=== PATIENT | female | born 1955 | race Caucasian/White ===

== ENCOUNTER 2019-09-17 07:55 | Outpatient (CLI) | payer MEDICARE, MEDICAID, SELFPAY ==
--- NOTE | 2019-09-19 00:42 | SLEEP_ITS ---
Home Sleep Test DATE OF STUDY: 09/17/2019 REASON FOR TESTING: Excessive daytime sleepiness with snoring. HISTORY: The patient is a 63-year-old female, 5 feet 3 inches tall, weighing 140 pounds with a body mass index of 24.8. She has a history of occasionally snoring, but only rarely is at loud enough that others complain about it. She indicates that she has had a sleep test before and a CPAP machine, so this indicates a prior history of sleep apnea. She frequently awakens from sleep feeling short of breath. She does not awaken from sleep with belching or coughing. She frequently has trouble sleeping with a cold, frequently wakes up gasping for breath at night. She occasionally has breathing problems, reported to her by others, occasionally sweats excessively at night and notices her heart pounding or beating irregularly at night. She constantly falls asleep during the day. She occasionally falls asleep involuntarily. She denies falling asleep while driving. She rarely falls asleep during physical effort, rarely falls asleep with laughing or crying and rarely has loss of muscle tone with strong emotion. She does not have daytime difficulties due to excessive sleepiness. She is retired. She rarely feels paralyzed on waking or falling asleep. Rarely has vivid dreamlike scenes upon awakening or falling asleep and rarely is afraid to go to sleep. She does not have nightmares. She rarely remembers her dreams and rarely has racing thoughts. She frequently feels sad, depressed, and anxious. She rarely has muscular tension. She frequently kicks at night and frequently notices parts of her body jerking. She rarely has crawly achy feelings in her legs. She occasionally has leg pain at night. She does not have morning jaw pain and does not grind her teeth during sleep. She rarely is bothered by pain during the day. She occasionally is awakened with pain at night. Wakes up feeling stiff in the morning, wakes up with sore achy muscles and wakes up with pain in the neck and spine. She has fatigue and memory problems as well as headaches. She estimates that she has between 8 and 11 hours of sleep per night. She goes to bed between 10 p.m. and 12 midnight. It takes her 1-2 hours to fall asleep. She awakens 1 or 2 times at night to go to the bathroom. When awake, she will stay awake for about an hour. She smokes during the night. She wakes up at various times. MEDICAL COMORBIDITIES: Depression, COPD, history of throat cancer, diabetes mellitus type 2, acid reflux, hyperlipidemia. MEDICATIONS: 1. Atorvastatin 80 mg a day. 2. Breo Ellipta 200/25 one puff daily. 3. Bupropion 150 mg extended release. 4. Hydrochlorothiazide 12.5 mg daily. 5. Meloxicam 7.5 mg daily. 6. Metformin 1000 mg twice a day with meals. 7. Metoprolol succinate ER 50 mg a day. 8. Ventolin HFA 90 mcg p.r.n. HABITS: Tobacco, half pack per day. Coffee 2 cups a day. No alcohol. DESCRIPTION OF THE STUDY: On the [place] Sleepiness Scale, the score is 7. This was conducted as an unattended home sleep test with 4 channel monitoring including respiratory effort channel, snoring channel, oxygen saturation channel, and heart rate channel. This study was scored using CMS guidelines. The apnea-hypopnea index is 8. Oxygen desaturation index is 9. Average saturation is 91%, which is low. Minimum saturation was 68%. She had one apnea, which was a central apnea, 43 hypopneas, 1135 snoring events and 43 desaturations with 66 minutes or 23% of the study spent below 88% saturation. Heart rate ranged from 64 to 159. IMPRESSION: This home sleep test shows at least mild obstructive sleep apnea syndrome, G47.33 with an AHI of 8, oxygen desaturation index of 9, lowest desaturation of 68% and over 1 ewa
== END 2019-09-17 07:56 | disposition home or self-care (01) ==
LOC: ANHCSM 07:56
PROVIDERS: PCP Family Medicine; Visit Provider Family Medicine
DX: G47.33 Obstructive sleep apnea (adult) (pediatric) (principal)
CPT/HCPCS: 95806

== ENCOUNTER 2020-09-08 12:45 | Emergency (ER) | payer MEDICARE, MEDICAID, SELFPAY ==
--- NOTE | ~2020-09-08 | XR_ITS ---
EXAMINATION: XR shoulder RT min 2V DATE: 09/08/2020 13:54 INDICATION: Right shoulder pain. TECHNIQUE: 5 views of right shoulder were obtained. COMPARISON: Right humerus radiographs 02/28/2019 FINDINGS: Bone alignment is normal. No fracture. There is mild osteoarthritis of glenohumeral joint a nd acromioclavicular joint characterized by tiny marginal osteophytes. IMPRESSION: 1. Mild polyarticular osteoarthritis. Reviewed, dictated and finalized at location A. LA REPAIRER
[2020-09-08 13:01] VITALS: BP 121/79; PULSE 72; RESP 16; TEMP 36.7; O2SAT 96
--- NOTE | 2020-09-08 14:40 | ED.GENADULT ---
HPI - General Adult General Chief complaint: Extremity Injury, Upper <Brian Lee PA-C - Last Filed: 09/08/20 14:44> Stated complaint: right shoulder pain <CELIA Dickerson Last Filed: 09/08/20 14:44> Time Seen by Provider: 09/08/20 12:59 <Brian Lee PA-C - Last Filed: 09/08/20 14:44> Source: patient <CELIA Dickerson Last Filed: 09/08/20 14:44> Mode of arrival: ambulatory <CELIA Dickerson Last Filed: 09/08/20 14:44> Limitations: no limitations <CELIA Dickerson Last Filed: 09/08/20 14:44> History of Present Illness HPI narrative: Patient presents with chief complaint of right shoulder pain that presented when she woke up this morning. Patient states that she has had issues with the shoulder in the past and has also had rotator cuff surgery many many years ago. Patient states typically when she has shoulder pain she takes her Tylenol with codeine but she did not do that today she presented herself to the emergency department. Patient denies any falls or traumas to the shoulder recently. Patient denies any chest pain, shortness of breath, fever, chills, nausea, vomiting, diarrhea or any other associated symptoms. <Brian Lee PA-C - Last Filed: 09/08/20 14:44> Related Data Allergies/adverse reactions: Allergies Allergy/AdvReac Type Severity Reaction Status Date / Time Penicillins Allergy Mild Unknown Verified 11/06/18 13:09 <Brian Lee PA-C - Last Filed: 09/08/20 14:44> Review of Systems Review of Systems: Narrative: CONSTITUTIONAL: Denies fever, chills, or sweats. EYES: Denies visual changes, redness, or discharge. ENT: Denies rhinorrhea, congestion, sore throat, or otalgia. CARDIOVASCULAR: Denies chest pain, palpitations, or edema. RESPIRATORY: Denies cough or dyspnea. GASTROINTESTINAL: Denies abdominal pain, nausea, vomiting, or diarrhea. GENITOURINARY: Denies dysuria or hematuria. SKIN: Denies rash or itching. MUSCULOSKELETAL: Reports right shoulder pain denies back pain, joint pain, or myalgia. NEUROLOGIC: Denies headache, numbness, dizziness, or weakness. PSYCHIATRIC: Denies anxiety or depression. <Brian Lee PA-C - Last Filed: 09/08/20 14:44> PMFSH Past Medical History Medical History: Medical History (Updated 09/08/20 @ 14:44 by Brian Lee PA-C) COPD exacerbation Diabetes High cholesterol History of arthritis History of cataract History of stroke HTN (hypertension) Hyperlipidemia <Brian Lee PA-C - Last Filed: 09/08/20 14:44> Family History Family History: Family History (Updated 06/25/19 @ 12:30 by Laure Banks [facility]) Father Cancer <Biran Lee PA-C - Last Filed: 09/08/20 14:44> Social History Social History: Social History (Updated 06/07/19 @ 13:05 by Alley Yañez) Smoking status: Current every day smoker Tobacco type: cigarettes Alcohol intake: never Substance use: never Gender identity (if verbalized by the patient): Female <Brian Lee PA-C - Last Filed: 09/08/20 14:44> Exam Narrative: Exam Narrative: GENERAL: Well-appearing, well-nourished, and in no acute distress. HEAD: Normocephalic, atraumatic. EYES: PERRLA and EOMI. NECK: Supple. No adenopathy or masses. CHEST: Clear to auscultation. No respiratory distress. No wheezes rales or rhonchi HEART: Regular rate and rhythm. No murmur heard. Normal peripheral pulses. EXTREMITIES: Patient reports pain with palpation of shoulder diffusely. No acute range of motion deficits. No edema. No erythema ecchymosis or signs of trauma. SKIN: Warm, dry, no rash. NEURO: No focal deficits. Alert and oriented x3. PSYCH: Normal mood and affect. <Brian Lee PA-C - Last Filed: 09/08/20 14:44> Course Vital Signs Vital signs: Vital Signs Temperature 98.1 F 09/08/20 13:01 Pulse Rate 72 09/08/20 13:01 Respiratory Rate 16 09/08/20 13:01 Blood Pressure 121/79 09/08/20 13:01 Pul
== END 2020-09-08 14:57 | disposition home or self-care (01) ==
PROVIDERS: Emergency Provider General Practice; PCP Nurse Practitioner Family
DX: M25.511 Pain in right shoulder (principal); J44.9 Chronic obstructive pulmonary disease, unspecified; E11.9 Type 2 diabetes mellitus without complications; Z86.73 Personal history of transient ischemic attack (TIA), and cerebral infarction without residual deficits; E78.5 Hyperlipidemia, unspecified; I10 Essential (primary) hypertension; F17.210 Nicotine dependence, cigarettes, uncomplicated; M19.011 Primary osteoarthritis, right shoulder
CPT/HCPCS: 73030; 99283

== ENCOUNTER 2020-09-18 13:47 | Emergency (ER) | payer MEDICARE, MEDICAID, SELFPAY ==
--- NOTE | ~2020-09-18 | XR_ITS ---
EXAMINATION: XR shoulder RT min 2V DATE: 09/18/2020 15:25 INDICATION: Right shoulder pain radiating down the right arm TECHNIQUE: AP internally and externally rotated, AP oblique externally rotated and transscapular Y vi ews of the right shoulder were obtained. COMPARISON: None FINDINGS: Normal alignment. No fracture. Mild glenohumeral and mild acromioclavicular osteoarthritis. There ap pears to be fusion anteriorly between the right C7 cervical rib and the right first rib. There is add itional anterior fusion between the anterior right fourth and fifth ribs. 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 IMPRESSION: Mild right glenohumeral and acromial clavicular osteoarthritis. No acute osseous abnormality. 2. There appear to be bilateral cervical ribs. Consider cervical spine radiographs for confirmation. 3. 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 Reviewed, dictated and finalized at location A. HOLOGIST RESEARCH ASSISTANT IMPRESSION: Mild right glenohumeral and acromial clavicular osteoarthritis. No acute osseou s abnormality. 2. There appear to be bilateral cervical ribs. Consider cervical spine radiogra phs for confirmation. 3. 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
[2020-09-18 14:05] VITALS: BP 132/81; PULSE 91; RESP 18; TEMP 35.8; O2SAT 95
--- NOTE | 2020-09-18 14:42 | PC.NURSE ---
Pt states her pmd prescribes her Tramadol and Tylenol #3 but they don't help. Has not contacted pmd to inform them of this. States she could not raise her right arm this morning after getting up due to pain.
--- NOTE | 2020-09-18 15:18 | ED.UPPEXIN ---
HPI - Extremity Injury (Upper) General Chief Complaint: Extremity Injury, Upper Stated Complaint: sharp pain in arm, completely resolved Time Seen by Provider: 09/18/20 14:40 Source: patient Mode of arrival: ambulatory Limitations: no limitations History of Present Illness HPI narrative: This is a 64 year old female that presents to the ER for right shoulder pain x 2 weeks. Reports she was evaluated here for this about 10 days ago. She was told she has arthritis. Reports pain is worse with ROM and relieved with rest. Denies fever, erythema, edema, or numbness. Related Data Allergies Allergy/AdvReac Type Severity Reaction Status Date / Time Penicillins Allergy Mild Unknown Verified 09/18/20 14:12 Review of Systems Review of Systems: Narrative: CONSTITUTIONAL: Denies fever CARDIOVASCULAR: Denies chest pain SKIN: Denies rash MUSCULOSKELETAL: Reports joint pain, and myalgia. NEUROLOGIC: Denies numbness All systems reviewed & are unremarkable except as noted in HPI and below PMFSH Past Medical History Medical History (Updated 09/18/20 @ 16:07 by Magda Cortez PA-C) COPD exacerbation Diabetes High cholesterol History of arthritis History of cataract History of stroke HTN (hypertension) Hyperlipidemia Family History Family History (Updated 06/25/19 @ 12:30 by Laure Banks [facility]) Father Cancer Social History Social History (Updated 06/07/19 @ 13:05 by Alley Yañez) Smoking status: Current every day smoker Tobacco type: cigarettes Alcohol intake: never Substance use: never Gender identity (if verbalized by the patient): Female Exam Narrative: Exam Narrative: GENERAL: Well-appearing, well-nourished, and in no acute distress. HEAD: Normocephalic, atraumatic. EYES: EOMI. CHEST: Clear to auscultation. No respiratory distress. No wheezes rales or rhonchi HEART: Regular rate and rhythm. No murmur heard. Normal peripheral pulses. EXTREMITIES: Normal range of motion, except decreased active ROM in the right shoulder above 90 degrees due to pain. No edema, erythema or obvious deformity. Normal radial pulses. Normal sensation SKIN: Warm, dry, no rash. NEURO: No focal deficits. Alert and oriented x3. PSYCH: Normal mood and affect Course Vital Signs Vital signs: Vital Signs Temperature 96.5 F L 09/18/20 14:05 Pulse Rate 91 09/18/20 14:05 Respiratory Rate 18 09/18/20 14:05 Blood Pressure 132/81 09/18/20 14:05 Pulse Oximetry 95 09/18/20 14:05 Temperature 96.5 F L 09/18/20 14:05 Pulse Rate 91 09/18/20 14:05 Respiratory Rate 18 09/18/20 14:05 Blood Pressure 132/81 09/18/20 14:05 Pulse Oximetry 95 09/18/20 14:05 MDM - Extremity Injury (Upper) MDM Narrative Medical decision making narrative: Patient presents the emergency department for right shoulder pain x2 weeks. No no recent injury or trauma. Patient is neurovascularly intact. Right shoulder x-ray shows mild osteoarthritis. No acute osseous abnormalities. Patient was updated on case findings. She was instructed to follow-up with an orthopedic doctor. She was given warnings to return to the ER Imaging Data Radiologist's impression: ITS Impressions Shoulder X-Ray 09/18/20 15:31 IMPRESSION: Mild right glenohumeral and acromial clavicular osteoarthritis. No acute osseous abnormality. 2. There appear to be bilateral cervical ribs. Consider cervical spine radiographs for confirmation. 3. 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 Critical Care Time Critical Care Time Critical Care Time: No Discharge Plan Discharge Clinical Impression: Acute pain of right shoulder Patient Disposition: Home, Self-Care Condition: Stable Instructions: Shoulder Pain (ED) Additional Instructions: Return to the emergency department if you experience fever, redness and swelling of your arm, numbness, or any other symptoms that are concerning to you Rest. Ice to th
[2020-09-18] MEDS: ACETAMINOPHEN 500 MG TABLET 1000 MG PO (15:26)
[2020-09-18] MEDS: diazePAM INJ (*CRX) 10 MG/2 ML SYRINGE 5 MG IM (15:26)
== END 2020-09-18 16:17 | disposition home or self-care (01) ==
PROVIDERS: Emergency Provider Emergency Medicine; PCP Nurse Practitioner Family
DX: M25.511 Pain in right shoulder (principal); J44.9 Chronic obstructive pulmonary disease, unspecified; M19.90 Unspecified osteoarthritis, unspecified site; I10 Essential (primary) hypertension; E78.5 Hyperlipidemia, unspecified; Z86.73 Personal history of transient ischemic attack (TIA), and cerebral infarction without residual deficits; F17.210 Nicotine dependence, cigarettes, uncomplicated; M19.011 Primary osteoarthritis, right shoulder
CPT/HCPCS: 73030; 96372; 99283; A9270; J3360

== ENCOUNTER 2020-11-03 11:53 | Emergency (ER) | payer MEDICARE, MEDICAID, SELFPAY ==
--- NOTE | ~2020-11-03 | XR_ITS ---
EXAMINATION: XR chest 2V DATE: 11/03/2020 13:11 INDICATION: Hemoptysis. Right chest pain. Shortness of breath. TECHNIQUE: Frontal and lateral views of the chest were obtained. COMPARISON: CT abdomen and pelvis 06/07/2019 FINDINGS: The chest demonstrates clear lungs without pneumonia, pleural effusion, or pneumothorax. Th e heart size is normal. There are surgical clips in right breast. IMPRESSION: 1. No acute cardiopulmonary disease. Reviewed, dictated and finalized at location A.
[2020-11-03 11:58] VITALS: BP 122/90; PULSE 105; RESP 16; TEMP 36.1; O2SAT 98
--- NOTE | 2020-11-03 12:30 | ED.GENADULT ---
HPI - General Adult General Chief complaint: Unspecified Stated complaint: coughing up blood, blood in nasal drainage Time Seen by Provider: 11/03/20 12:17 History of Present Illness HPI narrative: Bloody nasal drainage since yesterday. More from left than right, but coming from both sides. Small amount of hemoptysis. Baseline SOB, unchanged. No fever, chills, weakness, pain. Related Data Home Medications Medication Instructions Recorded Confirmed No Home Medications 10/06/20 10/06/20 Allergies Allergy/AdvReac Type Severity Reaction Status Date / Time Penicillins Allergy Mild Unknown Verified 11/03/20 12:42 Review of Systems Review of Systems: All systems reviewed & are unremarkable except as noted in HPI and below Constitutional: Constitutional: Reports no additional constitutional complaints Eyes: Eyes: Reports no additional eye complaints ENT: Reports as per HPI and Denies nasal trauma Cardiovascular: Cardiovascular: Reports as per HPI Respiratory: Respiratory: Reports as per HPI Hematologic/Lymphatic: Hematologic/Lymphatic: Denies easy bleeding and Denies easy bruising PMFSH Past Medical History Medical History COPD exacerbation Diabetes High cholesterol History of arthritis History of cataract History of stroke HTN (hypertension) Hyperlipidemia Right shoulder pain Rotator cuff tendinitis Family History Family History Father Cancer Social History Social History Smoking status: Current every day smoker Tobacco type: cigarettes Alcohol intake: never Substance use: never Gender identity (if verbalized by the patient): Female Exam Const: General: cooperative, comfortable and no acute distress Orientation/consciousness: patient oriented x3 HENMT: Head: normal to inspection General nose exam: Other nasal findings present (likely source of bleeding identified over the septum on the right) Face and sinus: normal facial exam Mouth: Yes Normal oral and palatal mucosa present Resp: Effort & Inspection: normal respiratory effort Auscultation: clear to auscultation bilaterally Cardio: Rate: regular rate Rhythm: regular rhythm Skin: General skin exam: normal color Neuro: General: patient oriented x3 and CN's II-XI intact bilaterally Cognition (Neuro): normal cognition Speech: normal speech Extrem: General: normal to inspection Course Vital Signs Vital signs: Vital Signs Temperature 36.1 C L 11/03/20 11:58 Pulse Rate 105 H 11/03/20 11:58 Respiratory Rate 16 11/03/20 11:58 Blood Pressure 122/90 11/03/20 11:58 Pulse Oximetry 98 11/03/20 11:58 Temperature 36.1 C L 11/03/20 11:58 Pulse Rate 86 11/03/20 14:35 Respiratory Rate 18 11/03/20 14:35 Blood Pressure 112/84 11/03/20 14:35 Pulse Oximetry 98 11/03/20 14:35 Medical Decision Making MDM Narrative Medical decision making narrative: Labs and imaging reassuring. Bleeding is most likely just from visualized lesion in the nose. Medical Records Medical records reviewed: Yes I reviewed the external patient's medical records. Vital Signs Vital Signs: Vital Signs Temperature 36.1 C L 11/03/20 11:58 Pulse Rate 105 H 11/03/20 11:58 Respiratory Rate 16 11/03/20 11:58 Blood Pressure 122/90 11/03/20 11:58 Pulse Oximetry 98 11/03/20 11:58 Temperature 36.1 C L 11/03/20 11:58 Pulse Rate 86 11/03/20 14:35 Respiratory Rate 18 11/03/20 14:35 Blood Pressure 112/84 11/03/20 14:35 Pulse Oximetry 98 11/03/20 14:35 Lab Data Lab results reviewed: Yes I reviewed the patient's lab results. Result diagrams: 11/03/20 13:42 11/03/20 13:42 Labs: Lab Results 11/03/20 11/03/20 11/03/20 Range/Units 13:42 13:42 13:42 WBC 8.1 (4.5-10.0) K/mm3 RBC 4.72 (4.2-5.4) M/
[2020-11-03 13:10] VITALS: BP 112/81; PULSE 83; RESP 20; O2SAT 100
[2020-11-03] MEDS: OXYMETAZOLINE HCL 0.05% NAS 15 ML BTL (*BKC) 2 SPRAY NASAL (13:32)
[2020-11-03 13:56] LABS: Basophils Absolute Auto 0.1 K/mm3 (0.0-0.1); Eosinophils Absolute Auto 0.1 K/mm3 (0-0.3); Eosinophils Percent Auto 1.5 % (0-4.4); Hematocrit 46.3 % (37.0-47.0); Hemoglobin 15.2 g/dL (12.0-15.0); Immature Granulocyte Absolute 0.06 K/mm3 (0.00-0.031); Immature Granulocyte Percent A 0.7 % (0-0.5); Lymphocytes Absolute Auto 1.08 K/mm3 (0.9-3.2); Lymphocytes Percent Auto 13.3 % (18.3-44.2); Mean Corpuscular HGB Conc 32.8 g/dl (32-36); Mean Corpuscular Hemoglobin 32.2 pg (26-34); Mean Corpuscular Volume 98.1 fl (80-100); Mean Platelet Volume 9.8 fl (7.4-10.4); Monocytes Absolute Auto 0.5 K/mm3 (0.1-0.6); Monocytes Percent Auto 6.3 % (2.6-8.5); Neutrophils Absolute Auto 6.3 K/mm3 (1.3-6.7); Neutrophils Percent Auto 77.2 % (45.5-73.1); Platelet Count Result 177 k/mm3 (150-375); Red Blood Count 4.72 M/mm3 (4.2-5.4); Red Cell Distribution Width 14.1 % (11.5-14.5); White Blood Count 8.1 K/mm3 (4.5-10.0)
[2020-11-03 14:12] VITALS: BP 113/82; PULSE 86; RESP 18; O2SAT 99
[2020-11-03 14:12] LABS: Alanine Aminotransferase 13 U/L (4-35); Albumin Level 4.2 g/dL (3.5-5.1); Alkaline Phosphatase 86 U/L (38-126); Anion Gap 4 mmol/L (8-16); Aspartate Amino Transferase 18 U/L (14-36); Bilirubin,Total 0.4 mg/dL (0.2-1.3); Blood Urea Nitrogen 16 mg/dL (7-17); Carbon Dioxide 33 mmol/L (22-30); Chloride 106 mmol/L (98-107); Estimated CRCL calculation 40 ml/min; Estimated Glomerular Filt Rate 55; Glucose 86 mg/dL (65-105); Potassium 4.4 mmol/L (3.4-5.0); Sodium 143 mmol/L (137-145)
[2020-11-03] MEDS: SALINE 0.65% NAS SOLN 44 ML BTL 2 SPRAY NASAL (14:12)
[2020-11-03 14:13] LABS: INR 0.8; Prothrombin Time 12.1 Seconds (11.1-14.7)
[2020-11-03 14:35] VITALS: BP 112/84; PULSE 86; RESP 18; O2SAT 98
== END 2020-11-03 14:40 | disposition home or self-care (01) ==
PROVIDERS: Emergency Provider Emergency Medicine; PCP Family Medicine Adolescent Medicine
DX: R04.0 Epistaxis (principal); J44.1 Chronic obstructive pulmonary disease with (acute) exacerbation; E11.9 Type 2 diabetes mellitus without complications; E78.5 Hyperlipidemia, unspecified; M19.90 Unspecified osteoarthritis, unspecified site; I10 Essential (primary) hypertension; F17.210 Nicotine dependence, cigarettes, uncomplicated
CPT/HCPCS: 36415; 71046; 80053; 85025; 85610; 85730; 99283; A9270

== ENCOUNTER 2021-01-16 07:47 | Emergency (ER) | payer MEDICARE, MEDICAID, SELFPAY ==
[2021-01-16 08:08] VITALS: BP 113/76; PULSE 103; RESP 18; TEMP 37; O2SAT 96
[2021-01-16 08:41] LABS: Basophils Absolute Auto 0.1 K/mm3 (0.0-0.1); Basophils Percent Auto 0.8 % (0.2-1.2); Eosinophils Absolute Auto 0.5 K/mm3 (0-0.3); Eosinophils Percent Auto 6.9 % (0-4.4); Hematocrit 41.7 % (37.0-47.0); Hemoglobin 13.5 g/dL (12.0-15.0); Immature Granulocyte Absolute 0.03 K/mm3 (0.00-0.031); Immature Granulocyte Percent A 0.4 % (0-0.5); Mean Corpuscular HGB Conc 32.4 g/dl (32-36); Mean Corpuscular Hemoglobin 31.5 pg (26-34); Mean Corpuscular Volume 97.4 fl (80-100); Mean Platelet Volume 9.7 fl (7.4-10.4); Monocytes Absolute Auto 0.6 K/mm3 (0.1-0.6); Monocytes Percent Auto 7.8 % (2.6-8.5); Neutrophils Absolute Auto 5.9 K/mm3 (1.3-6.7); Neutrophils Percent Auto 75.1 % (45.5-73.1); Platelet Count Result 208 k/mm3 (150-375); Red Blood Count 4.28 M/mm3 (4.2-5.4); White Blood Count 7.8 K/mm3 (4.5-10.0)
[2021-01-16 08:55] LABS: Anion Gap 8 mmol/L (8-16); Blood Urea Nitrogen 16 mg/dL (7-17); Calcium 9.4 mg/dL (8.4-10.2); Carbon Dioxide 31 mmol/L (22-30); Chloride 103 mmol/L (98-107); Estimated CRCL calculation 40 ml/min; Estimated Glomerular Filt Rate 55; Glucose 209 mg/dL (65-105); Potassium 3.7 mmol/L (3.4-5.0); Sodium 142 mmol/L (137-145)
--- NOTE | 2021-01-16 09:20 | ED.GENADULT ---
HPI - General Adult General Chief complaint: Skin/Abscess/Foreign Body Stated complaint: rash-possible bed bugs Time Seen by Provider: 01/16/21 08:13 Source: patient Mode of arrival: ambulatory Limitations: no limitations History of Present Illness HPI narrative: 65-year-old with a history of diabetes on Glucophage, hypertension, hypothyroidism, hyperlipidemia here with complaints of bug bite to her lower extremities and upper extremities for past few days. She states that she saw several bugs crawling on her lower extremity this morning. She denies any fever or chills. Onset (ago): day(s) (2) Location: upper extremity and lower extremity Radiation: non-radiation Severity: mild Relieving factors: none Exacerbating factors: none Associated symptoms: denies other symptoms Related Data Home Medications Medication Instructions Recorded Confirmed atorvastatin 01/16/21 ergocalciferol (vitamin D2) 01/16/21 hydrochlorothiazide 01/16/21 levothyroxine 01/16/21 metformin mg 01/16/21 oxybutynin chloride mg PO 01/16/21 tiotropium-olodaterol [Stiolto INHALATION 01/16/21 Respimat] Allergies Allergy/AdvReac Type Severity Reaction Status Date / Time Penicillins Allergy Mild Unknown Verified 01/16/21 08:10 Review of Systems Review of Systems: All systems reviewed & are unremarkable except as noted in HPI and below Constitutional: Constitutional: Reports no additional constitutional complaints Eyes: Eyes: Reports no additional eye complaints ENT: Reports system reviewed and no additional complaints, except as documented Cardiovascular: Cardiovascular: Reports no additional cardiovascular complaints Respiratory: Respiratory: Reports no additional respiratory complaints Gastrointestinal: Gastrointestinal: Reports no additional gastrointestinal complaints Musculoskeletal: Musculoskeletal: Reports no additional musculoskeletal complaints [facility] Past Medical History Medical History Arthritis COPD (chronic obstructive pulmonary disease) COPD exacerbation Depression Diabetes Excessive hunger Excessive thirst Hair loss High cholesterol History of arthritis History of cataract History of stroke HTN (hypertension) Hyperlipidemia Memory loss Right shoulder pain Rotator cuff tendinitis Sleep apnea SOB (shortness of breath) Stomach ulcer Urinary frequency Wears glasses Weight gain Family History Family History Father Cancer Social History Social History Smoking packs per day: 1 Smoking cigarettes per day: 20.0 Years smoked: 5 Smoking pack-years: 5.00 Smoking status: Current every day smoker Tobacco type: cigarettes Alcohol intake: never Substance use: never Gender identity (if verbalized by the patient): Female Exam Narrative: Exam Narrative: GENERAL: Well-appearing, well-nourished, and in no acute distress. HEAD: Normocephalic, atraumatic. EYES: PERRLA and EOMI.. NECK: Supple. CHEST: Clear to auscultation. No respiratory distress. HEART: Regular rate and rhythm. No murmur heard. Normal peripheral pulses. ABDOMEN: Soft, nontender, nondistended, normal active bowel sounds. EXTREMITIES: Normal range of motion. No edema. SKIN: Warm, dry, multiple bite castellano, eczema to skin NEURO: No focal deficits. Alert and oriented x3. PSYCH: Normal mood and affect. Course Course Emergency Course: Patient has 4 bugs in her hand, I discussed lab work with the patient advised her to take the learning and bed learning and spray with the insecticide. Take prednisone as prescribed. Also recommended her to follow-up with her primary doctor for reevaluation of her blood pressure and diabetes. Told her prednisone can increase her blood sugar so watch diet and check her sugars frequently. Vital Signs Vital signs: Vital Signs Temperature 37
== END 2021-01-16 09:37 | disposition home or self-care (01) ==
PROVIDERS: Emergency Provider Family Medicine; PCP Family Medicine Adolescent Medicine
DX: S80.862A Insect bite (nonvenomous), left lower leg, initial encounter (principal); S80.861A Insect bite (nonvenomous), right lower leg, initial encounter; S40.862A Insect bite (nonvenomous) of left upper arm, initial encounter; S40.861A Insect bite (nonvenomous) of right upper arm, initial encounter; L20.82 Flexural eczema; E11.9 Type 2 diabetes mellitus without complications; I10 Essential (primary) hypertension; E03.9 Hypothyroidism, unspecified; Z79.84 Long term (current) use of oral hypoglycemic drugs; J44.9 Chronic obstructive pulmonary disease, unspecified; M19.90 Unspecified osteoarthritis, unspecified site; E78.5 Hyperlipidemia, unspecified; G47.30 Sleep apnea, unspecified; Z86.73 Personal history of transient ischemic attack (TIA), and cerebral infarction without residual deficits; F17.210 Nicotine dependence, cigarettes, uncomplicated; H26.9 Unspecified cataract; W57.XXXA Bitten or stung by nonvenomous insect and other nonvenomous arthropods, initial encounter
CPT/HCPCS: 36415; 80048; 85025; 99283

== ENCOUNTER 2021-02-12 13:50 | Emergency (ER) | payer MEDICARE, MEDICAID, SELFPAY ==
--- NOTE | ~2021-02-12 | XR_ITS ---
EXAMINATION: XR chest 2V EXAM DATE: 02/12/2021 14:54 INDICATION: Shortness of breath. TECHNIQUE: Frontal and lateral projections of the chest obtained and reviewed. Comparison is made to prior examination from 11/03/2020. Correlation was made with abdomen pelvis CT 06/07/2019. FINDINGS: The lungs are clear. There are no pleural effusions. The cardiomediastinal silhouette is within normal limits. There is no pneumothorax suspected. The bones and soft tissues are unremarkab le. IMPRESSION: No acute cardiopulmonary findings. Reviewed, dictated and finalized at location G.
[2021-02-12 14:07] VITALS: BP 117/73; PULSE 89; RESP 16; TEMP 36.3; O2SAT 100
--- NOTE | 2021-02-12 14:07 | ECG_ITS ---
Measurements Intervals [place] Rate: 83 P: 30 NE: 176 QRS: 7 QRSD: 74 T: 74 QT: 365 QTc: 430 Interpretive Statements SINUS RHYTHM LEFT VENTRICULAR HYPERTROPHY AND ST-T CHANGE BORDERLINE ECG Electronically Signed On 02-12-2021 14:17:53 CDT by Ehsan Sierra D.O.
[2021-02-12 14:45] LABS: Basophils Absolute Auto 0.1 K/mm3 (0.0-0.1); Basophils Percent Auto 0.7 % (0.2-1.2); Eosinophils Absolute Auto 0.3 K/mm3 (0-0.3); Hematocrit 25.9 % (37.0-47.0); Hemoglobin 8.2 g/dL (12.0-15.0); Immature Granulocyte Absolute 0.19 K/mm3 (0.00-0.031); Lymphocytes Absolute Auto 0.58 K/mm3 (0.9-3.2); Lymphocytes Percent Auto 6.1 % (18.3-44.2); Mean Corpuscular HGB Conc 31.7 g/dl (32-36); Mean Corpuscular Hemoglobin 31.5 pg (26-34); Mean Corpuscular Volume 99.6 fl (80-100); Mean Platelet Volume 9.4 fl (7.4-10.4); Monocytes Absolute Auto 0.7 K/mm3 (0.1-0.6); Monocytes Percent Auto 6.9 % (2.6-8.5); Neutrophils Absolute Auto 7.7 K/mm3 (1.3-6.7); Neutrophils Percent Auto 81.3 % (45.5-73.1); Nucleated Red Blood Cells Absolute Auto 0.1 K/mm3 (0.0-0.012); Nucleated Red Blood Cells Perc 0.8 % (0.0-0.2); Platelet Count Result 234 k/mm3 (150-375); Red Cell Distribution Width 14.8 % (11.5-14.5); White Blood Count 9.5 K/mm3 (4.5-10.0)
[2021-02-12 14:56] LABS: Anion Gap 10 mmol/L (8-16); Blood Urea Nitrogen 32 mg/dL (7-17); Calcium 9.4 mg/dL (8.4-10.2); Carbon Dioxide 23 mmol/L (22-30); Chloride 108 mmol/L (98-107); Estimated CRCL calculation 45 ml/min; Estimated Glomerular Filt Rate 55; Glucose 128 mg/dL (65-110); Potassium 4.3 mmol/L (3.4-5.0); Sodium 141 mmol/L (137-145)
--- NOTE | 2021-02-12 15:57 | PC.NURSE ---
lab to add on labs.
[2021-02-12 16:00] VITALS: BP 100/78; PULSE 77; RESP 16; O2SAT 100
[2021-02-12 16:04] LABS: Immature Reticulocyte Fraction 40.5 % (3.0-15.9); Reticulocyte Hemoglobin Conten 35.8 pg (28.2-35.7); Reticulocyte Percent 4.14 % (0.7-4.3); Reticulocytes Absolute 0.11 B/L (32.2-175.7)
[2021-02-12 16:27] LABS: Iron 83 ug/dL (37-170)
[2021-02-12] MEDS: PERMETHRIN 5% CREAM 60 GM TUBE 1 APPLIC TOPICAL (16:49)
[2021-02-12] MEDS: PANTOPRAZOLE SODIUM IV 40 MG VIAL 80 MG IV PUSH (16:50)
[2021-02-12] MEDS: LACTATED RINGERS 1,000 ML 999 ML IV CONT (16:50)
[2021-02-12] MEDS: ONDANSETRON INJ 4 MG/2 ML VIAL IV PUSH (16:50)
--- NOTE | 2021-02-12 16:51 | PC.NURSE ---
pt being transferred to [facility] for GI Bleed. [facility] requesting a rapid COVID prior to transfer.
--- NOTE | 2021-02-12 16:52 | ED.GENADULT ---
HPI - General Adult General Chief complaint: Shortness of Breath/Dyspnea Stated complaint: SOB Time Seen by Provider: 02/12/21 15:24 Source: patient Mode of arrival: ambulatory Limitations: no limitations History of Present Illness HPI narrative: 65-year-old female Comes to the ER today complaining of being itchy and dizzy She has been seen here previously for the itchiness which she thought was from bedbug bites but the rash that she has is pretty diffuse small lesions and does not really resemble bedbug bites, looks more like flea bites or possibly scabies She does have a Chihuahua that she lives with Additionally she notes that today when she has gotten up out of bed or out of a chair she has felt dizzy No symptoms when at rest Not vertiginous, more of a very lightheaded feeling She has been eating okay, she has not had a fever or a cough, she has not had nausea or vomiting On questioning she does report that she had 1 large loose black stool in the last 24 hours No abdominal pain, no history of ulcers, does not drink alcohol, not using NSAIDs excessively, and she does smoke although she claims to have stopped 1 day ago, has taken prednisone Beyond the dizziness she also has fatigue quickly with exertion today History of high cholesterol, type 2 diabetes, hypertension; she had a history of throat cancer years ago that was treated at a hospital in [facility] Related Data Home Medications Medication Instructions Recorded Confirmed atorvastatin 01/16/21 ergocalciferol (vitamin D2) 01/16/21 hydrochlorothiazide 01/16/21 levothyroxine 01/16/21 metformin mg 01/16/21 oxybutynin chloride mg PO 01/16/21 tiotropium-olodaterol [Stiolto INHALATION 01/16/21 Respimat] Allergies Allergy/AdvReac Type Severity Reaction Status Date / Time Penicillins Allergy Mild Unknown Verified 01/16/21 08:10 Review of Systems Review of Systems: All systems reviewed & are unremarkable except as noted in HPI and below Constitutional: Constitutional: Reports no additional constitutional complaints, Denies chills, Reports fatigue, Denies fever(s), Denies headache(s) and Reports weakness Eyes: Eyes: Reports no additional eye complaints and Denies change in vision ENT: Denies headache(s) and Denies sore throat Cardiovascular: Cardiovascular: Denies chest pain and Denies dyspnea Respiratory: Respiratory: Denies cough and Reports dyspnea Gastrointestinal: Gastrointestinal: Denies abdominal pain, Denies diarrhea and Denies vomiting Genitourinary: Genitourinary: Denies urinary frequency and Denies dysuria Musculoskeletal: Musculoskeletal: Denies deformity, Denies arthralgias, Denies joint swelling and Denies numbness Integumentary/Breasts: Skin/Breast: Denies rash and Denies wounds Neurologic: Reports dizziness, Denies headache(s), Denies focal weakness and Denies numbness Psychiatric: Psychiatric: Reports no additional psychiatric complaints Endocrine: Endocrine: Reports no additional endocrine complaints Hematologic/Lymphatic: Hematologic/Lymphatic: Reports no additional hematologic/lymphatic complaints Allergic/Immunologic: Allergic/Immunologic: Reports no additional allergic/immunologic complaints PMFSH Past Medical History Medical History Arthritis COPD (chronic obstructive pulmonary disease) COPD exacerbation Depression Diabetes Excessive hunger Excessive thirst Hair loss High cholesterol History of arthritis History of cataract History of stroke HTN (hypertension) Hyperlipidemia Memory loss Right shoulder pain Rotator cuff tendinitis Sleep apnea SOB (shortness of breath) Stomach ulcer Urinary frequency Wears glasses Weight gain Family History Family History Father Cancer Social History Social History Smoking packs per day: 1 Sm
--- NOTE | 2021-02-12 16:58 | PC.NURSE ---
pt to be transferred to [facility]. [facility] is requesting a covid test prior to transport.
[2021-02-12 17:00] LABS: Percent Iron Saturation 22 % (20-50)
[2021-02-12 17:04] VITALS: BP 134/70; PULSE 80
[2021-02-12 17:05] LABS: NT Pro B Type Natriuretic Pept 1510 pg/mL (5-100)
[2021-02-12 17:06] VITALS: BP 111/97; PULSE 84
[2021-02-12 17:07] VITALS: BP 96/72; PULSE 87
[2021-02-12 17:10] VITALS: BP 114/79; PULSE 77; RESP 16; O2SAT 100
[2021-02-12 17:15] LABS: Prothrombin Time 12.6 Seconds (11.1-14.7)
[2021-02-12 17:17] LABS: Partial Thromboplastin Time 23.8 SECONDS (22.3-36.8)
[2021-02-12 17:33] LABS: EDCOVIDSCREEN Negative (Negative)
[2021-02-15 13:21] LABS: Red Blood Cell Folate >1000 ng/mL RBC (>280)
== END 2021-02-12 17:26 | disposition short-term general hospital (02) ==
PROVIDERS: Emergency Provider Emergency Medicine; PCP Nurse Practitioner Family
DX: K92.2 Gastrointestinal hemorrhage, unspecified (principal); D64.9 Anemia, unspecified; E11.9 Type 2 diabetes mellitus without complications; I10 Essential (primary) hypertension; J44.9 Chronic obstructive pulmonary disease, unspecified; M19.90 Unspecified osteoarthritis, unspecified site; E78.5 Hyperlipidemia, unspecified; G47.30 Sleep apnea, unspecified; F17.210 Nicotine dependence, cigarettes, uncomplicated; Z86.73 Personal history of transient ischemic attack (TIA), and cerebral infarction without residual deficits; Z79.84 Long term (current) use of oral hypoglycemic drugs; R06.02 Shortness of breath; Z20.822 Contact with and (suspected) exposure to COVID-19; Z85.818 Personal history of malignant neoplasm of other sites of lip, oral cavity, and pharynx; I51.7 Cardiomegaly
CPT/HCPCS: 36415; 71046; 80048; 82607; 82747; 83540; 83550; 83880; 85025; 85046; 85610; 85730; 86850; 86900; 86901; 87426; 93005; 96361; 96374; 96375; 99285; A9270; C9113; C9803; J2405; J7120

== ENCOUNTER 2021-03-02 20:53 | Inpatient (IN) | payer MEDICARE, MEDICAID, SELFPAY ==
--- NOTE | ~2021-03-02 | XR_ITS ---
EXAMINATION: XR abdomen NG/feed tube insert DATE: 03/03/2021 01:42 INDICATION: Nasogastric tube placement TECHNIQUE: A supine view of the abdomen which includes the chest was obtained for evaluation of feed ing tube placement. COMPARISON: Chest radiograph dated 02/12/2021 FINDINGS: Is a gastric tube tip in the body of the stomach with proximal side-port a few centimeter above level of the gastroesophageal junction. No dilated loops of bowel in the visualized abdomen. Mild bibasila r opacities likely representing atelectasis. No pleural effusion or pneumothorax. Cardiomegaly. Dense mitral annular calcification. IMPRESSION: 1. Nasogastric tube tip in the stomach with proximal side port in the distal esophagus. 2. Mild bibasilar opacities and favor atelectasis over pneumonia. 3. Cardiomegaly. Reviewed, dictated and finalized at location A. IMPRESSION: 1. Nasogastric tube tip in the stomach with proximal side port in the distal es ophagus. 2. Mild bibasilar opacities and favor atelectasis over pneumonia. 3. Cardiomegaly.
[2021-03-02 21:00] VITALS: BP 120/92; PULSE 103; RESP 16; TEMP 36.7; O2SAT 97
[2021-03-02 22:14] VITALS: BP 138/74; PULSE 94; RESP 16; O2SAT 95
[2021-03-02 22:38] LABS: Basophils Absolute Auto 0.1 K/mm3 (0.0-0.1); Basophils Percent Auto 0.6 % (0.2-1.2); Eosinophils Absolute Auto 0.6 K/mm3 (0-0.3); Eosinophils Percent Auto 4.3 % (0-4.4); Hemoglobin 11.4 g/dL (12.0-15.0); Immature Granulocyte Absolute 0.06 K/mm3 (0.00-0.031); Immature Granulocyte Percent A 0.4 % (0-0.5); Lymphocytes Absolute Auto 0.52 K/mm3 (0.9-3.2); Lymphocytes Percent Auto 3.5 % (18.3-44.2); Mean Corpuscular HGB Conc 31.7 g/dl (32-36); Mean Corpuscular Hemoglobin 30.4 pg (26-34); Mean Platelet Volume 9.8 fl (7.4-10.4); Monocytes Absolute Auto 0.8 K/mm3 (0.1-0.6); Monocytes Percent Auto 5.1 % (2.6-8.5); Neutrophils Absolute Auto 12.9 K/mm3 (1.3-6.7); Neutrophils Percent Auto 86.1 % (45.5-73.1); Platelet Count Result 199 k/mm3 (150-375); Red Blood Count 3.75 M/mm3 (4.2-5.4); Red Cell Distribution Width 15.5 % (11.5-14.5)
[2021-03-02 22:49] LABS: Alanine Aminotransferase 16 U/L (4-35); Albumin Level 4.2 g/dL (3.5-5.1); Alkaline Phosphatase 113 U/L (38-126); Anion Gap 10 mmol/L (8-16); Aspartate Amino Transferase 22 U/L (14-36); Bilirubin,Total 0.5 mg/dL (0.2-1.3); Blood Urea Nitrogen 15 mg/dL (7-17); Calcium 9.1 mg/dL (8.4-10.2); Carbon Dioxide 26 mmol/L (22-30); Chloride 107 mmol/L (98-107); Estimated CRCL calculation 50 ml/min; Estimated Glomerular Filt Rate > 60; Glucose 159 mg/dL (65-110); Potassium 3.7 mmol/L (3.4-5.0); Sodium 143 mmol/L (137-145)
[2021-03-02 22:50] LABS: Prothrombin Time 12.6 Seconds (11.1-14.7)
[2021-03-02 22:59] LABS: Partial Thromboplastin Time 25.3 SECONDS (22.3-36.8)
[2021-03-02] MEDS: ONDANSETRON INJ 4 MG/2 ML VIAL IV PUSH (23:09)
[2021-03-02] MEDS: PANTOPRAZOLE SODIUM IV 40 MG VIAL 80 MG IV PUSH (23:10)
[2021-03-02 23:12] VITALS: BP 124/77; PULSE 101; RESP 24; O2SAT 96
[2021-03-02] MEDS: SODIUM CHLORIDE 0.9% IV 1,000 ML 125 ML IV CONT (23:12)
[2021-03-03] VITALS (17 sets, daily range): BP systolic 88–110; BP diastolic 49–68; PULSE 57–99; RESP 14–28; TEMP 36.1–36.9; O2SAT 88–98; BMI 26.8
--- NOTE | 2021-03-03 | ECHO_ITS ---
Patient Info Name: Carey Turpin Age: 65 years : 1955 Gender: Female Ht: 63 in Wt: 151 lbs BSA: 1.76 m2 HR: 88 bpm BP: 105 / 54 mmHg Heart Rhythm: Sinus Rhythm Technical Quality: Poor Exam Date: 03/03/2021 12:45 PM Exam Location: [facility] Pulmonary Exam Room: 252 Patient Status: Inpatient Admit Date: 03/03/2021 Staff Ordering Physician: Ravi Nolasco MD Chocolate Maker: Blanca Bob RDCS Attending Provider: Johnie Cordoba MD Exam Type: CA echo dop color flow w con Study Info Indications - murmur Complete two-dimensional, color flow and Doppler transthoracic echocardiogram is performed with contrast to opacify the left ventricle and to improve the deliniation of the left ventricle endocardial borders. Summary 1. Left ventricular chamber dimension is normal. 2. Left ventricular systolic function is hyperdynamic, estimated at >70%. 3. Left atrial chamber dimension is moderately enlarged. 4. The aortic valve is normal. 5. The mitral valve annulus is moderately calcified. 6. There is trace mitral valve regurgitation. 7. There is a systolic velocity of 5.68 m/sec in the LV outflow tract with a symitar configuration suggestive of dynamic LVOT obstruction. Left Ventricle Left ventricular chamber dimension is normal. Left ventricular systolic function is hyperdynamic, estimated at >70%. The left ventricular diastolic function is grade I diastolic dysfunction. Right Ventricle Right ventricular chamber dimension is normal. Left Atria Left atrial chamber dimension is moderately enlarged. Right Atria Right atrial chamber dimension is normal. Aortic Valve The aortic valve is normal. There is a systolic velocity of 5.68 m/sec in the LV outflow tract with a symitar configuration suggestive of dynamic LVOT obstruction. Pulmonic Valve The pulmonic valve is not well visualized. Mitral Valve The mitral valve has normal leaflets. There is trace mitral valve regurgitation. The mitral valve annulus is moderately calcified. Tricuspid Valve The tricuspid valve leaflets are normal. Pericardium/Pleural The pericardium appears normal. Aorta The aortic root size at the sinus of Valsalva is normal. Left Ventricular Outflow Tract Name Value Normal LVOT 2D LVOT Diameter 1.97 cm Pulmonic Valve Name Value Normal PV Doppler PV Peak Gradient 3 mmHg Mitral Valve Name Value Normal MV Doppler MV Decel [place] 385.63 cm/s2 MV PHT 0 s MV Area (PHT) 2.30 cm2 4.00-5.00 MV Diastolic Function MV E Peak Ve
[2021-03-03] MEDS: LACTATED RINGERS 1,000 ML 999 ML IV CONT (00:59)
[2021-03-03 01:12] LABS: Hematocrit 32.5 % (37.0-47.0); Hemoglobin 10.3 g/dL (12.0-15.0)
--- NOTE | 2021-03-03 01:21 | ED.GIBLEED ---
HPI - GI Bleed General Chief complaint: GI Bleed Stated complaint: black stools/not feeling well Time Seen by Provider: 03/02/21 21:57 Source: patient Limitations: clinical condition History of Present Illness HPI Narrative: 65-year-old female Not an extremely clear historian States she is here because it is the same as last time Last time was about a month ago when she came in with melanotic stools At that time she was transferred to [place] because it was a weekend and we lacked GI coverage Patient recalls that she had an EGD procedure done but is not sure what they found, only stating that they told her she had a hernia It does appear that she was discharged with a prescription for Protonix and that in the 2 weeks since her discharge she has taken 4 of them Today she reports having 1 large dark-colored stool No abdominal pain, she has nausea without vomiting, and the dizziness which was present last time is not present today Related Data Home Medications Medication Instructions Recorded Confirmed atorvastatin 01/16/21 ergocalciferol (vitamin D2) 01/16/21 hydrochlorothiazide 01/16/21 levothyroxine 01/16/21 metformin mg 01/16/21 oxybutynin chloride mg PO 01/16/21 tiotropium-olodaterol [Stiolto INHALATION 01/16/21 Respimat] Allergies Allergy/AdvReac Type Severity Reaction Status Date / Time Penicillins Allergy Mild Unknown Verified 03/02/21 21:44 Review of Systems Review of Systems: All systems reviewed & are unremarkable except as noted in HPI and below Constitutional: Constitutional: Reports no additional constitutional complaints, Denies chills, Reports fatigue, Denies fever(s), Denies headache(s) and Reports weakness Eyes: Eyes: Reports no additional eye complaints and Denies change in vision ENT: Denies headache(s) and Denies sore throat Cardiovascular: Cardiovascular: Denies chest pain and Denies dyspnea Respiratory: Respiratory: Denies cough and Denies dyspnea Gastrointestinal: Gastrointestinal: Denies abdominal pain, Denies bloating, Denies constipation, Denies diarrhea and Denies vomiting Genitourinary: Genitourinary: Denies urinary frequency and Denies dysuria Musculoskeletal: Musculoskeletal: Denies deformity, Denies arthralgias, Denies joint swelling and Denies numbness Integumentary/Breasts: Skin/Breast: Denies rash and Denies wounds Neurologic: Denies headache(s), Denies focal weakness and Denies numbness Psychiatric: Psychiatric: Reports no additional psychiatric complaints Endocrine: Endocrine: Reports no additional endocrine complaints Hematologic/Lymphatic: Hematologic/Lymphatic: Reports no additional hematologic/lymphatic complaints Allergic/Immunologic: Allergic/Immunologic: Reports no additional allergic/immunologic complaints [facility] Past Medical History Medical History Arthritis COPD (chronic obstructive pulmonary disease) COPD exacerbation Depression Diabetes Excessive hunger Excessive thirst Hair loss High cholesterol History of arthritis History of cataract History of stroke HTN (hypertension) Hyperlipidemia Memory loss Right shoulder pain Rotator cuff tendinitis Sleep apnea SOB (shortness of breath) Stomach ulcer Urinary frequency Wears glasses Weight gain Family History Family History Father Cancer Social History Social History Smoking packs per day: 1 Smoking cigarettes per day: 20.0 Years smoked: 5 Smoking pack-years: 5.00 Smoking status: Current every day smoker Tobacco type: cigarettes Alcohol intake: never Substance use: never Gender identity (if verbalized by the patient): Female Exam Const: General: cooperative, no acute distress and alert Orientation/consciousness: patient oriented x3 (alert) HENMT: Head: normal to inspection, normocephali
--- NOTE | 2021-03-03 01:24 | PM.IMHP ---
H&P: HPI History of Present Illness Date/Time: 03/03/21 01:24 Chief Complaint: TARRY STOOL Narrative: THIS IS A 65-YEAR-OLD FEMALE WITH PAST MEDICAL HISTORY SIGNIFICANT FOR HYPERTENSION, TYPE 2 DIABETES MELLITUS, HYPOTHYROIDISM, COPD/EMPHYSEMA, GI BLEED. PATIENT PRESENTED TO THE EMERGENCY ROOM AFTER SHE HAD 1 EPISODE OF MELENA IT WAS A LARGE BOWEL MOVEMENT AND SHE FELT DIZZY WELL. PATIENT DOES HAD A RECENT WORKUP DONE FOR SOME REASON AT [facility] AND SHE WAS SENT HOME ON PPI HOWEVER SHE HAS BEEN NONCOMPLIANT WITH IT. SHE DENIES ANY EPIGASTRIC PAIN OR ABDOMINAL PAIN NO NAUSEA NO VOMITING NO DIARRHEA. PRELIMINARY WORKUP SHOWED A HEMOGLOBIN OF 11 AND HEMATOCRIT OF 36. SHE RECEIVED FLUIDS IN THE EMERGENCY AND REPEAT HEMOGLOBIN WAS 10 AND HEMATOCRIT WAS 32. Review of Systems Review of Systems: 1 EPISODE OF TARRY STOOLS Constitutional: Constitutional: Denies chills, Denies fatigue, Denies fever(s), Denies malaise and Denies weakness Eyes: Eyes: Denies change in vision ENT: Reports dizziness Cardiovascular: Cardiovascular: Denies chest pain, Denies syncope, Denies radiating jaw, neck or arm pain, Denies palpitations and Denies dyspnea Respiratory: Respiratory: Denies cough Gastrointestinal: Gastrointestinal: Reports melena, Denies dyspepsia, Denies heartburn, Denies nausea and Denies vomiting Genitourinary: Genitourinary: Reports no additional female genitourinary complaints Musculoskeletal: Musculoskeletal: Reports no additional musculoskeletal complaints Integumentary/Breasts: Skin/Breast: Reports system reviewed and no additional complaints, except as docu Neurologic: Reports system reviewed and no additional complaints, except as documented Psychiatric: Psychiatric: Reports no additional psychiatric complaints Endocrine: Endocrine: Reports no additional endocrine complaints Hematologic/Lymphatic: Hematologic/Lymphatic: Reports no additional hematologic/lymphatic complaints Allergic/Immunologic: Allergic/Immunologic: Reports no additional allergic/immunologic complaints [facility] Past Medical History Medical History (Updated 03/03/21 @ 01:34 by Johnie Cordoba MD) Arthritis COPD (chronic obstructive pulmonary disease) COPD exacerbation Depression Diabetes Excessive hunger Excessive thirst Hair loss High cholesterol History of arthritis History of cataract History of stroke HTN (hypertension) Hyperlipidemia Memory loss Right shoulder pain Rotator cuff tendinitis Sleep apnea SOB (shortness of breath) Stomach ulcer Urinary frequency Wears glasses Weight gain Family History Family History Father Cancer Social History Social History Smoking packs per day: 1 Smoking cigarettes per day: 20.0 Years smoked: 5 Smoking pack-years: 5.00 Smoking status: Current every day smoker Tobacco type: cigarettes Alcohol intake: never Substance use: never Gender identity (if verbalized by the patient): Female Meds Home Medications and Allergies Home Medications Medication Instructions Recorded Confirmed Type atorvastatin 01/16/21 History ergocalciferol (vitamin D2) 01/16/21 History hydrochlorothiazide 01/16/21 History hydroxyzine pamoate [Vistaril] 25 mg PO TID PRN #30 cap 01/16/21 Rx levothyroxine 01/16/21 History metformin mg 01/16/21 History oxybutynin chloride mg PO 01/16/21 History prednisone 10 mg PO BID #10 tablet 01/16/21 Rx tiotropium-olodaterol [Stiolto INHALATION 01/16/21 History Respimat] Allergies Allergy/AdvReac Type Severity Reaction Status Date / Time Penicillins Allergy Mild Unknown Verified 03/02/21 21:44 Vital Signs Vital Signs - 24 hr 03/02/21 21:00 03/02/21 22:14 03/02/21 23:12 Temperature 98.0 F Pulse Rate 103 H 94 101 H Respiratory Rate 16 16 24 H Blood Pressure 120/92 H 138/74 124/77 Pulse Oximetry 97 95 96 03/03/21
--- NOTE | 2021-03-03 04:19 | ADMGEN ---
This patient, Carey Turpin, was admitted to Medical Room 252-01. Patient/family oriented to hospital policies and general routines including ID bracelet, bed and alarms, visiting hours, pain management, procedures, bathroom and other care routines, personal items, smoking policy, room service/diet, and visiting hours. Information on how to activate the Rapid Response Team has been discussed. Patient/Family are encouraged to report perceived risks to care and to ask questions if they do not understand what they are told or what they should do.
--- NOTE | 2021-03-03 05:40 | PC.NURSE ---
PT DISCLOSED SHE HAS A RASH DUE TO HAVING BED BUGS IN HER HOME. AIR QUALITY TECHNICIAN ASSISTED PATIENT IN TAKING A BATH AND REMOVING ALL CLOTHING FROM HOME AND GOWN FROM ED. COLLECTED BED BUG SPECIMEN FOR HOUSEKEEPING TO INSPECT. BAGGED UP PATIENT BELONGINGS AND LEFT IN ROOM FOR HOUSEKEEPING TO ORANGE PICKING SUPERVISOR PER POLICY AND PROCEDURES.
[2021-03-03 07:55] LABS: Basophils Absolute Auto 0.1 K/mm3 (0.0-0.1); Basophils Percent Auto 0.6 % (0.2-1.2); Eosinophils Absolute Auto 0.5 K/mm3 (0-0.3); Hematocrit 28.2 % (37.0-47.0); Immature Granulocyte Absolute 0.07 K/mm3 (0.00-0.031); Immature Granulocyte Percent A 0.6 % (0-0.5); Lymphocytes Absolute Auto 1.26 K/mm3 (0.9-3.2); Lymphocytes Percent Auto 10.1 % (18.3-44.2); Mean Corpuscular HGB Conc 31.9 g/dl (32-36); Mean Corpuscular Hemoglobin 30.4 pg (26-34); Mean Corpuscular Volume 95.3 fl (80-100); Mean Platelet Volume 9.6 fl (7.4-10.4); Monocytes Absolute Auto 0.9 K/mm3 (0.1-0.6); Neutrophils Absolute Auto 9.7 K/mm3 (1.3-6.7); Neutrophils Percent Auto 77.7 % (45.5-73.1); Platelet Count Result 164 k/mm3 (150-375); Red Blood Count 2.96 M/mm3 (4.2-5.4); Red Cell Distribution Width 15.4 % (11.5-14.5); White Blood Count 12.5 K/mm3 (4.5-10.0)
[2021-03-03] MEDS: SODIUM CHLORIDE 0.9% IV 1,000 ML 125 ML IV CONT (08:03)
[2021-03-03 08:58] LABS: Anion Gap 7 mmol/L (8-16); Blood Urea Nitrogen 12 mg/dL (7-17); Calcium 7.8 mg/dL (8.4-10.2); Carbon Dioxide 24 mmol/L (22-30); Chloride 107 mmol/L (98-107); Estimated CRCL calculation 50 ml/min; Estimated Glomerular Filt Rate > 60; Glucose 107 mg/dL (65-110); Potassium 3.5 mmol/L (3.4-5.0); Sodium 138 mmol/L (137-145)
[2021-03-03] MEDS: hydroCHLOROthiazide 25 MG TABLET PO (09:29)
[2021-03-03] MEDS: hydrOXYzine pamoate 25 MG CAPSULE PO (09:29)
[2021-03-03] MEDS: OMEGA 3 POLYUNSAT FATTY ACIDS 1 GM CAP PO (09:30)
[2021-03-03] MEDS: METOPROLOL SUCCINATE EXT REL 50 MG TABCR PO (09:30)
--- NOTE | 2021-03-03 10:33 | PM.IMPN ---
Progress Note: A&P Assessment and Plan (1) Acute upper GI bleed: Code(s): K92.2 - Gastrointestinal hemorrhage, unspecified Status: Acute (2) Diabetes: Code(s): E11.9 - Type 2 diabetes mellitus without complications Status: Acute (3) COPD (chronic obstructive pulmonary disease): Code(s): J44.9 - Chronic obstructive pulmonary disease, unspecified Status: Acute (4) Sleep apnea: Code(s): G47.30 - Sleep apnea, unspecified Status: Inactive (5) Hyperlipidemia: Code(s): E78.5 - Hyperlipidemia, unspecified Status: Acute (6) HTN (hypertension): Code(s): I10 - Essential (primary) hypertension Status: Acute (7) Bedbug bite: Qualifiers: Encounter type: initial encounter Qualified Code(s): W57.XXXA - Bitten or stung by nonvenomous insect and other nonvenomous arthropods, initial encounter Code(s): W57.XXXA - Bitten or stung by nonvenomous insect and other nonvenomous arthropods, initial encounter Status: Acute Additional Plan Patient has been admitted to [address] [place] [address]. Hemoglobin is being checked serially and has dropped to 9. Some of this drop could be related IV fluids which will stop. Continue to monitor H& H. GI consult. Will obtain old records from [place] to see what the findings were by the EGD. Continue Protonix. She is congratulated on smoking cessation. She has COPD. Will continue her inhalers. The Keflex ended yesterday so will stop this. Blood pressure is soft so will hold the hydrochlorothiazide. Glucose well controlled but will start sliding scale protocol to continue to monitor this closely. It appears her metformin is on hold. She does have significant murmur but no lightheadedness with standing or chest pain. Will check echocardiogram. No old echos here. SCDs for DVT prophylaxis. Subjective Date/time seen: 03/03/21 10:33 Interval history: 65yo female with HTN, DM and COPD here for melena. patient slept okay last night. No bowel movements since admission. No nausea or vomiting. No abdominal pain. She quit tobacco 3-4 weeks ago. She was seen here on 02/12 and found to be anemic and guaiac positive. No GI services here so sent to [place]. She had an EGD which showed a hernia. She was hospitalized for 3-4 days. She is vague on details. She is not sure if they sent her home with medications. She does not take a PPI or H2 maya. She has loud murmur on exam but she states this is known. She has known bedbugs. Exam Narrative: AF 98.4 105/54 65 16 94% ra Gen - NARD Chest - Bibasilar inspiratory crackles CV - RRR S1/S2 with a 3/6 systolic murmur heard loudest along the left sternal border. Abd - Soft, NT/ND, Positive BS Ext - No pedal edema. 2+ on the right and 1+ on the left DP pulses. Psych - Nml mood and affect Skin - Dry patchy areas of skin on the dorsum of the feet and Right calf. Small punctate eschars noted as well probably excoriations. small slightly erythematous lesions noted possibly bed bug bites. Objective Data Vital Signs Vital Signs: Vital Signs - 24 hr 03/02/21 21:00 03/02/21 22:14 03/02/21 23:12 Temperature 98.0 F Pulse Rate 103 H 94 101 H Respiratory Rate 16 16 24 H Blood Pressure 120/92 H 138/74 124/77 Pulse Oximetry 97 95 96 03/03/21 00:24 03/03/21 01:02 03/03/21 02:13 Temperature Pulse Rate 99 98 95 Respiratory Rate 28 H 22 H 18 Blood Pressure 91/49 L 110/53 L 107/68 Pulse Oximetry 95 93 94 03/03/21 03:55 03/03/21 04:00 03/03/21 05:08 Temperature 97.9 F 97.9 F Pulse Rate 87 85 85 Respiratory Rate 16 20 20 Blood Pressure 108/68 102/59 L 102/59 L Pulse Oximetry 93 98 98 03/03/21 09:30 03/03/21 10:00 Temperature 98.4 F Pulse Rate 66 65 Respiratory Rate 16 Blood Pressure 105/54 L Pulse Oximetry 94 Intake/Output Intake/Output: Intake & Output 02/28/21 03/01/21 03/02/21 03/03/21 23:59 23:59 23:59 23:59 Intake Total 1999
[2021-03-03 13:21] LABS: Hemoglobin 8.8 g/dL (12.0-15.0)
[2021-03-03] MEDS: PERFLUTREN LIPID MICROSPHERES 1.5 ML VIAL DILUTED TO 10 ML TOTAL VOLUME IV PUSH (13:25)
--- NOTE | 2021-03-03 13:38 | WPDANESEPPF ---
Anes - Initial Pre Proc Eval Procedure: Operation Date: 03/03/21 14:45 Proposed Procedures p Esophagogastroduodenoscopy - Umer Zhu MD Date/Time: 03/03/21 13:38 Surgeon: Johnie Cordoba MD Pre Op Diagnosis: Upper GI Bleed Patient Data Age: 65 Gender: F Height: 1.6 m Weight: 68.7 kg Last Vital Signs Temp 36.9 C 03/03/21 10:00 Pulse 65 03/03/21 10:00 Resp 16 03/03/21 10:00 BP 105/54 L 03/03/21 10:00 Pulse Ox 94 03/03/21 10:00 Allergies Allergy/AdvReac Type Severity Reaction Status Date / Time Penicillins Allergy Mild Unknown Verified 03/03/21 06:52 Home Medications Medication Instructions Recorded Confirmed Type atorvastatin 80 mg PO HS 01/16/21 03/03/21 History ergocalciferol (vitamin D2) 1,250 mcg PO WEEKLY 01/16/21 03/03/21 History hydrochlorothiazide 25 mg PO DAILY 01/16/21 03/03/21 History hydroxyzine pamoate [Vistaril] 25 mg PO TID PRN #30 cap 01/16/21 03/03/21 Rx metformin 1,000 mg PO BID 01/16/21 03/03/21 History oxybutynin chloride 5 mg PO EVERY OTHER DAY 01/16/21 03/03/21 History tiotropium-olodaterol [Stiolto 2 inh INHALATION DAILY 01/16/21 03/03/21 History Respimat] cephalexin 500 mg PO BID 03/03/21 03/03/21 History metoprolol succinate 50 mg PO DAILY 03/03/21 03/03/21 History omega-3 acid ethyl esters 1 cap PO DAILY 03/03/21 03/03/21 History pantoprazole 40 mg PO DAILY 03/03/21 03/03/21 History permethrin 1 applic TOPICAL BID 03/03/21 03/03/21 History tramadol 50 mg PO BID PRN 03/03/21 03/03/21 History Laboratory Tests 03/02/21 03/02/21 03/02/21 22:30 22:30 22:30 WBC 15.0 K/mm3 H K/mm3 (4.5-10.0) RBC 3.75 M/mm3 L M/mm3 (4.2-5.4) Hgb 11.4 g/dL L D g/dL (12.0-15.0) Hct 36.0 % L % (37.0-47.0) MCV 96.0 fl fl (80-100) MCH 30.4 pg pg (26-34) MCHC 31.7 g/dl L g/dl (32-36) RDW 15.5 % H % (11.5-14.5) Plt Count 199 k/mm3 k/mm3 (150-375) MPV 9.8 fl fl (7.4-10.4) Immature Gran % (Auto) 0.4 % % (0-0.5) Neut % (Auto) 86.1 % H % (45.5-73.1) Lymph % (Auto) 3.5 % L % (18.3-44.2) Alpine % (Auto) 5.1 % % (2.6-8.5) Eos % (Auto) 4.3 % % (0-4.4) Baso % (Auto) 0.6 % % (0.2-1.2) Lymph # (Auto) 0.52 K/mm3 L K/mm3 (0.9-3.2) Alpine # (Auto) 0.8 K/mm3 H K/mm3 (0.1-0.6) Eos # (Auto) 0.6 K/mm3 H K/mm3 (0-0.3) Baso # (Auto) 0.1 K/mm3 K/mm3 (0.0-0.1) Abs Immat Gran (auto) 0.06 K/mm3 H K/mm3 (0.00-0.031) Absolute Neuts (auto) 12.9 K/mm3 H K/mm3 (1.3-6.7) Absolute Nucleated RBC 0.0 K/mm3 K/mm3 (0.0-0.012) Nucleated RBC % 0.0 % % (0.0-0.2) PT 12.6 Seconds Seconds (11.1-14.7) INR 1.0 APTT 25.3 SECONDS SECONDS (22.3-36.8) Sodium 143 mmol/L mmol/L (137-145) Potassium 3.7 mmol/L mmol/L (3.4-5.0) Chloride 107 mmol/L mmol/L (98-107) Carbon Dioxide 26 mmol/L mmol/L (22-30) Anion Gap 10 mmol/L mmol/L (8-16) BUN 15 mg/dL D mg/dL (7-17) Creatinine 0.90 mg/dL mg/dL (0.7-1.0) Estim Creat Clear Calc 50 ml/min ml/min Estimated GFR > 60 (59 - ) Glucose 159 mg/dL H mg/dL (65-110) POC Capillary Glucose Calcium 9.1 mg/dL mg/dL (8.4-10.2) Total Bilirubin 0.5 mg/dL mg/dL (0.2-1.3) AST 22 U/L U/L (14-36) ALT 16 U/L U/L (4-35) Alkaline Phosphatase 113 U/L U/L (38-126) Total Protein 7.0 g/dL g/dL (6.3-8.2) Albumin 4.2 g/dL g/dL (3.5-5.1) Blood Type Antibody Screen 03/02/21 03/03/21 03/03/21 22:30 01:01 07:34 WBC 12.5 K/mm3 H K/mm3 (4.5-10.0) RBC 2.96 M/mm3 L M/mm3 (4.2-5.4) Hgb 10.3 g/dL L g/dL 9.0 g/dL L g/dL (12.
[2021-03-03 13:39] LABS: Glucose Point of Care 94 mg/dl (65-105)
[2021-03-03] MEDS: LACTATED RINGERS 1,000 ML 150 ML IV CONT (13:51)
--- NOTE | 2021-03-03 14:24 | WPDGICN ---
Assessment and Plan Assessment and plan (1) Melena: Code(s): K92.1 - Melena Status: Acute Assessment and Plan: patient described dark stool, on protonix now and npo will proceed today with EGD to evaluate if source of GIB. She never had a colonoscopy (consider to get one tomorrow if egd is unrevealing)- she is poor historian (2) Acute on chronic blood loss anemia: Code(s): D62 - Acute posthemorrhagic anemia Status: Acute Assessment and Plan: low hb but stable since last month however it was normal few months ago continue to monitor for signs of bleeding and trend h/h (3) Diabetes: Code(s): E11.9 - Type 2 diabetes mellitus without complications Status: Acute Assessment and Plan: on meds (4) HTN (hypertension): Code(s): I10 - Essential (primary) hypertension Status: Acute (5) COPD (chronic obstructive pulmonary disease): Code(s): J44.9 - Chronic obstructive pulmonary disease, unspecified Status: Acute Assessment and Plan: quit smoking (6) Bedbug bite: Qualifiers: Encounter type: initial encounter Qualified Code(s): W57.XXXA - Bitten or stung by nonvenomous insect and other nonvenomous arthropods, initial encounter Code(s): W57.XXXA - Bitten or stung by nonvenomous insect and other nonvenomous arthropods, initial encounter Status: Acute Assessment and Plan: previous history GI Consult Note Consult date/time: 03/03/21 14:24 Reason for consult: melena HPI: Carey Turpin is a 65 year old female with history of COPD, former smoker with previous hospital visit several weeks ago for anemia and FOBT + but transferred to [place] because lack of GI coverage, apparently had EGD that showed hernia (no records). She is not a good historian. She is here because noted dark stools and just having generalized weakness. Hb last month 8 (previously normal at 13), hb now 8.8, normal inr and platelets, also normal bun and creatitine. She is admitted for melena and anemia. She is currently npo status. She says that never had a colonoscopy. Review of Systems Constitutional: Constitutional: Reports lethargy Eyes: Eyes: Denies blurry vision ENT: Reports Normal hearing present Cardiovascular: Cardiovascular: Denies chest pain Respiratory: Respiratory: Reports cough Gastrointestinal: Gastrointestinal: Denies abdominal pain and Denies nausea Genitourinary: Genitourinary: Denies hematuria Musculoskeletal: Musculoskeletal: Denies neck pain Integumentary/Breasts: Skin/Breast: Denies dry skin Neurologic: Reports system reviewed and no additional complaints, except as documented Psychiatric: Psychiatric: Reports no additional psychiatric complaints [facility] Past Medical History Medical History (Updated 03/03/21 @ 16:04 by Umer Zhu MD) Acute on chronic blood loss anemia Arthritis COPD (chronic obstructive pulmonary disease) COPD exacerbation Depression Diabetes Excessive hunger Excessive thirst Hair loss High cholesterol History of arthritis History of cataract History of stroke HTN (hypertension) Hyperlipidemia Melena Memory loss Right shoulder pain Rotator cuff tendinitis Sleep apnea SOB (shortness of breath) Stomach ulcer Urinary frequency Wears glasses Weight gain Family History Family History (Updated 03/03/21 @ 04:20 by Keina Yanez RN) Father Cancer Other Unknown family medical history Social History Social History Smoking packs per day: 1 Smoking cigarettes per day: 20.0 Years smoked: 5 Smoking pack-years: 5.00 Smoking status: Former smoker Tobacco type: cigarettes Alcohol intake: never Substance use: never Gender identity (if verbalized by the patient): Female Spiritual care concerns: No Meds Home Medications and Allergies Home Medications Medication Instructions Rec
[2021-03-03 15:50] LABS: Glucose Point of Care 81 mg/dl (65-105)
[2021-03-03 17:57] LABS: Glucose Point of Care 84 mg/dl (65-105)
[2021-03-03] MEDS: polyethylene glycoL 3350 238 GM BOTTLE PO (18:11)
[2021-03-03] MEDS: BISACODYL 5 MG TABLET EC 20 MG PO (18:21)
[2021-03-03 20:51] LABS: Hematocrit 29.4 % (37.0-47.0); Hemoglobin 9.1 g/dL (12.0-15.0)
[2021-03-03] MEDS: ATORVASTATIN 40 MG TABLET 80 MG PO (20:57)
[2021-03-04] VITALS (10 sets, daily range): BP systolic 69–143; BP diastolic 40–68; PULSE 57–67; RESP 14–20; TEMP 36.2–36.5; O2SAT 90–96
[2021-03-04] MEDS: MAGNESIUM CITRATE 300 ML BTL PO (03:03)
[2021-03-04 03:06] LABS: Glucose Point of Care 141 mg/dl (65-105)
[2021-03-04 05:44] LABS: Hematocrit 33.4 % (37.0-47.0); Hemoglobin 10.1 g/dL (12.0-15.0); Mean Corpuscular HGB Conc 30.2 g/dl (32-36); Mean Corpuscular Volume 99.1 fl (80-100); Mean Platelet Volume 9.4 fl (7.4-10.4); Platelet Count Result 149 k/mm3 (150-375); Red Blood Count 3.37 M/mm3 (4.2-5.4); Red Cell Distribution Width 15.9 % (11.5-14.5); White Blood Count 6.3 K/mm3 (4.5-10.0)
[2021-03-04 05:57] LABS: Anion Gap 6 mmol/L (8-16); Blood Urea Nitrogen 8 mg/dL (7-17); Calcium 8.6 mg/dL (8.4-10.2); Carbon Dioxide 25 mmol/L (22-30); Chloride 109 mmol/L (98-107); Estimated CRCL calculation 45 ml/min; Estimated Glomerular Filt Rate 55; Glucose 103 mg/dL (65-110); Potassium 3.4 mmol/L (3.4-5.0); Sodium 140 mmol/L (137-145)
[2021-03-04 06:25] LABS: Hemoglobin A1C 5.7 % (<5.7)
[2021-03-04 06:25] LABS: Glucose Point of Care 114 mg/dl (65-105)
[2021-03-04] MEDS: METOPROLOL SUCCINATE EXT REL 50 MG TABCR PO (09:34)
--- NOTE | 2021-03-04 10:10 | PC.NURSE ---
Patient taken to GI lab
[2021-03-04 10:26] LABS: Glucose Point of Care 110 mg/dl (65-105)
[2021-03-04] MEDS: LACTATED RINGERS 1,000 ML 150 ML IV CONT (10:27)
--- NOTE | 2021-03-04 10:46 | WPDANESPN ---
Anes - Prog Note Post-Op Date/Time: 03/04/21 10:46 Cardiovascular status: normal Respiratory status: normal Airway patency: baseline Mental status: baseline Post-Op hydration status: normal Vital Signs: Last Vital Signs Temp 36.4 C L 03/04/21 10:29 Pulse 66 03/04/21 10:29 Resp 18 03/04/21 10:29 BP 118/62 03/04/21 10:29 Pulse Ox 92 03/04/21 10:29 Pain Score (VAS): 0 I/O: Intake & Output 03/03/21 03/04/21 03/04/21 23:59 07:59 15:59 Intake Total 810 Output Total 500 1600 Balance 310 -1600 Laboratory Tests 03/04/21 05:35 03/04/21 05:35 03/03/21 03/03/21 03/03/21 13:08 13:36 15:26 WBC RBC Hgb 8.8 L Hct 28.0 L MCV MCH MCHC RDW Plt Count MPV Sodium Potassium Chloride Carbon Dioxide Anion Gap BUN Creatinine Estim Creat Clear Calc Estimated GFR Glucose POC Capillary Glucose 94 81 Hemoglobin A1c Calcium 03/03/21 03/03/21 03/04/21 17:54 20:37 03:02 WBC RBC Hgb 9.1 L Hct 29.4 L MCV MCH MCHC RDW Plt Count MPV Sodium Potassium Chloride Carbon Dioxide Anion Gap BUN Creatinine Estim Creat Clear Calc Estimated GFR Glucose POC Capillary Glucose 84 141 H Hemoglobin A1c Calcium 03/04/21 03/04/21 03/04/21 05:35 05:35 05:35 WBC 6.3 RBC 3.37 L Hgb 10.1 L Hct 33.4 L MCV 99.1 MCH 30.0 MCHC 30.2 L RDW 15.9 H Plt Count 149 L MPV 9.4 Sodium 140 Potassium 3.4 Chloride 109 H Carbon Dioxide 25 Anion Gap 6 L BUN 8 Creatinine 1.00 Estim Creat Clear Calc 45 Estimated GFR 55 L Glucose 103 POC Capillary Glucose Hemoglobin A1c 5.7 Calcium 8.6 03/04/21 03/04/21 06:22 10:23 WBC RBC Hgb Hct MCV MCH MCHC RDW Plt Count MPV Sodium Potassium Chloride Carbon Dioxide Anion Gap BUN Creatinine Estim Creat Clear Calc Estimated GFR Glucose POC Capillary Glucose 114 H 110 H Hemoglobin A1c Calcium Post-procedural complaints: none Patient Feedback: Patient satisfied with anesthetic care.
--- NOTE | 2021-03-04 10:56 | WPDANESEFPP ---
Anes - Eval Final PreProcedure Day of Procedure 03/04/21 10:56 Patient weight: overweight Heart: regular rate and rhythm Lungs: clear to auscultation Airway: Mallampati scale class II Neurological: alert and oriented Last oral intake: >/= 8 hours ASA classification: III Emergent: no Anesthetic plan: proceed Anesthesia type and monitoring: general GIVS and standard monitoring Informed Consent: The patient's anesthetic plan and its attendant risks and benefits were discussed with the patient/family/POA. Questions were solicited and answers provided to the satisfaction of the patient/family/POA.
[2021-03-04] MEDS: PANTOPRAZOLE 40 MG TABLET PO (12:37)
[2021-03-04] MEDS: OMEGA 3 POLYUNSAT FATTY ACIDS 1 GM CAP PO (12:37)
[2021-03-04 14:01] LABS: Glucose Point of Care 82 mg/dl (65-105)
--- NOTE | 2021-03-04 16:21 | PM.DS ---
DS: Admitting Diagnosis Admitting Diagnosis Melena DS: Discharge Diagnosis Discharge Diagnosis (1) Acute upper GI bleed: Code(s): K92.2 - Gastrointestinal hemorrhage, unspecified Status: Acute (2) Diabetes: Code(s): E11.9 - Type 2 diabetes mellitus without complications Status: Acute (3) COPD (chronic obstructive pulmonary disease): Code(s): J44.9 - Chronic obstructive pulmonary disease, unspecified Status: Acute (4) Sleep apnea: Code(s): G47.30 - Sleep apnea, unspecified Status: Inactive (5) Hyperlipidemia: Code(s): E78.5 - Hyperlipidemia, unspecified Status: Acute (6) HTN (hypertension): Code(s): I10 - Essential (primary) hypertension Status: Acute (7) Bedbug bite: Qualifiers: Encounter type: initial encounter Qualified Code(s): W57.XXXA - Bitten or stung by nonvenomous insect and other nonvenomous arthropods, initial encounter Code(s): W57.XXXA - Bitten or stung by nonvenomous insect and other nonvenomous arthropods, initial encounter Status: Acute DS: Summary Hospital Course Reason for hospitalization: 65yo female with HTN, DM and COPD here for melena. Please see H&P for details Hospital Course: Patient was seen here on 02/12 and found to be anemic and guaiac positive. No GI services here so sent to [place]. She had an EGD which showed a hernia. She was hospitalized for 3-4 days. She is vague on details. She is not sure if they sent her home with medications. She denies that she takes a PPI or H2 maya even though Protonix was on her med list. She has known bedbugs. Patient has been admitted to [address] [place] [address]. Hemoglobin was 11.4 and HH was checked serially. HH did drop to 8.8 before climbing back to 10.1 at time of discharge. She did not receive transfusion during her hospitalization. Some of this drop could be related IV fluids. No stool guaiac able to be obtained here. GI was consulted. We asked for old records from [place] but no were forth coming. She was started on Protonix. EGD performed on 03/03/21 and showed hiatal hernia. Colonoscopy performed on 03/04/21 and showed internal hemorroids. Follow up with GI for possible small bowel capsule endoscopy. She quit tobacco 3-4 weeks ago and was congratulated on smoking cessation. She has COPD. We continued her inhalers. The Keflex ended so this was stopped. Blood pressure is soft so we held the hydrochlorothiazide. Glucose monitored by [employer] and covered with sliding scale. Glucose remained well controlled. A1c 5.7. She was noted to have a significant murmur but no lightheadedness with standing or chest pain. 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 No old echos here. Patient asymptomatic from this so felt safe for discharge with plans for outpatient evaluation. Discussed with Cardiology who recommended continuing to hold HCTZ. Patient did well. Eating normally. No nausea or vomiting. No further rectal bleeding. Patient was stable for discharge. Status at Discharge Cognitive/behavioral status at discharge: stable Time Spent with Patient Time attestation: Total time spent providing and/or coordinating discharge services:35 minutes Time spent: Greater than 30 minutes Specific discharge activities: Discussed with Ashok Lovelace NP Exam Narrative: AF 97.7 121/63 59 18 96% ra Gen - NARD Chest - clear anteriorly and in flanks, nml RR CV - RRR S1/S2 with a 3/6 systolic murmur heard loudest along the left sternal border. Abd - Soft, NT/ND, Positive BS Ext - No pedal edema Psych - Nml mood and affect Skin - warm and dry DS: Data Data Completed and Pending Pending studies at discharge: Pending at discharge 03/03/21 14:39 Surgical [PTH] Routine Labs on day of discharge: Labs from last 24 ewa
[2021-03-04 17:47] LABS: Glucose Point of Care 106 mg/dl (65-105)
--- NOTE | 2021-03-05 10:00 | WPDANESPN ---
Anes - Prog Note Post-Op Date/Time: 03/05/21 10:00 Cardiovascular status: normal Respiratory status: normal Airway patency: baseline Mental status: baseline Post-Op hydration status: normal Vital Signs: Last Vital Signs Temp 97.7 F 03/04/21 14:00 Pulse 59 L 03/04/21 14:00 Resp 18 03/04/21 14:00 BP 121/63 03/04/21 14:00 Pulse Ox 96 03/04/21 14:00 Pain Score (VAS): 0/10 I/O: Intake & Output 03/04/21 03/05/21 03/05/21 23:59 07:59 15:59 Intake Total 490 Output Total 400 Balance 90 Laboratory Tests 03/04/21 05:35 03/04/21 05:35 03/04/21 03/04/21 03/04/21 10:23 13:32 17:44 POC Capillary Glucose 110 H 82 106 H Post-procedural complaints: none Patient Feedback: Patient satisfied with anesthetic care.
--- NOTE | 2021-03-09 10:11 | PC.NURSE ---
Gastric biopsy- mild, chronic gastritis.
== END 2021-03-04 19:18 | disposition home or self-care (01) | DRG 378 ==
LOC: ANHED 03-03 01:28 → ANH2MED 03-03 09:12
PROVIDERS: Internal Medicine Gastroenterology; Admitting Provider Internal Medicine; Emergency Provider Emergency Medicine; PCP Nurse Practitioner Family; Visit Provider Internal Medicine
PROC: 0DJ08ZZ Inspection of Upper Intestinal Tract, Via Natural or Artificial Opening Endoscopic (ICD-10-PCS; CPT 43235; principal; 2021-03-03 14:45)
PROC: 0DJD8ZZ Inspection of Lower Intestinal Tract, Via Natural or Artificial Opening Endoscopic (ICD-10-PCS; CPT 45378; principal; 2021-03-04 12:00)
DX: K92.1 Melena (principal); D62 Acute posthemorrhagic anemia; K64.8 Other hemorrhoids; K44.9 Diaphragmatic hernia without obstruction or gangrene; E11.9 Type 2 diabetes mellitus without complications; I10 Essential (primary) hypertension; E03.9 Hypothyroidism, unspecified; J43.9 Emphysema, unspecified; G47.30 Sleep apnea, unspecified; E78.5 Hyperlipidemia, unspecified; W57.XXXA Bitten or stung by nonvenomous insect and other nonvenomous arthropods, initial encounter; Z91.14 Patient's other noncompliance with medication regimen; Z79.84 Long term (current) use of oral hypoglycemic drugs; Z87.891 Personal history of nicotine dependence
CPT/HCPCS: 36415; 80048; 80053; 82948; 83036; 85014; 85018; 85025; 85027; 85610; 85730; 86850; 86900; 86901; 88305; 93306; 94660; 96361; 96374; 96375; 99285; A9270; C8929; C9113; J2405; J2704; J7030; J7060; J7120; Q9957

== ENCOUNTER 2021-03-11 14:36 | Emergency (ER) | payer MEDICARE, MEDICAID, SELFPAY ==
[2021-03-11 15:05] VITALS: BP 95/59; PULSE 105; RESP 18; TEMP 36.1; O2SAT 97
[2021-03-11 15:30] LABS: Basophils Absolute Auto 0.1 K/mm3 (0.0-0.1); Eosinophils Absolute Auto 0.6 K/mm3 (0-0.3); Eosinophils Percent Auto 8.9 % (0-4.4); Hematocrit 29.8 % (37.0-47.0); Hemoglobin 9.2 g/dL (12.0-15.0); Immature Granulocyte Absolute 0.07 K/mm3 (0.00-0.031); Lymphocytes Absolute Auto 0.81 K/mm3 (0.9-3.2); Lymphocytes Percent Auto 11.4 % (18.3-44.2); Mean Corpuscular HGB Conc 30.9 g/dl (32-36); Mean Corpuscular Hemoglobin 31.2 pg (26-34); Mean Platelet Volume 9.4 fl (7.4-10.4); Monocytes Absolute Auto 0.4 K/mm3 (0.1-0.6); Monocytes Percent Auto 5.9 % (2.6-8.5); Neutrophils Absolute Auto 5.1 K/mm3 (1.3-6.7); Neutrophils Percent Auto 71.8 % (45.5-73.1); Nucleated Red Blood Cells Perc 0.4 % (0.0-0.2); Platelet Count Result 188 k/mm3 (150-375); Red Blood Count 2.95 M/mm3 (4.2-5.4); Red Cell Distribution Width 17.7 % (11.5-14.5); White Blood Count 7.1 K/mm3 (4.5-10.0)
[2021-03-11 15:39] LABS: Alanine Aminotransferase 18 U/L (4-35); Albumin Level 4.2 g/dL (3.5-5.1); Alkaline Phosphatase 96 U/L (38-126); Anion Gap 8 mmol/L (8-16); Aspartate Amino Transferase 24 U/L (14-36); Bilirubin,Total 0.6 mg/dL (0.2-1.3); Blood Urea Nitrogen 20 mg/dL (7-17); Calcium 9.1 mg/dL (8.4-10.2); Carbon Dioxide 26 mmol/L (22-30); Chloride 112 mmol/L (98-107); Estimated CRCL calculation 50 ml/min; Estimated Glomerular Filt Rate > 60; Glucose 170 mg/dL (65-110); Potassium 3.6 mmol/L (3.4-5.0); Sodium 146 mmol/L (137-145)
[2021-03-11 15:42] LABS: INR 0.9; Partial Thromboplastin Time 22.9 SECONDS (22.3-36.8); Prothrombin Time 12.3 Seconds (11.1-14.7)
[2021-03-11 17:07] VITALS: BP 112/58; PULSE 94; TEMP 36.6; O2SAT 95
[2021-03-11 19:48] VITALS: BP 129/99; PULSE 95
[2021-03-11 19:49] VITALS: BP 110/91; BP 93/70; PULSE 97; PULSE 99
--- NOTE | 2021-03-11 20:04 | ED.GENADULT ---
HPI - General Adult General Chief complaint: GI Bleed Stated complaint: blood in stool Time Seen by Provider: 03/11/21 19:43 Source: patient Mode of arrival: ambulatory Limitations: no limitations History of Present Illness HPI narrative: Patient is here for evaluation of persistent black stools. She was just discharged from this facility on 03/04 after being seen by gastroenterology for the same. There is no cause for her melena found at that time. Patient states that she has no pain, she is not vomiting. She has a bag full of medications that I reviewed because she is a very poor historian and was unclear if they sent her home for anything for her stomach. She does have a bottle of pantoprazole, she has not been taking it because she did not know where it was or what it was for. It was prescribed for her in January. She denies taking any other oout-yuw-oywarca medications such as Pepto-Bismol Onset (ago): week(s) Associated symptoms: denies other symptoms Related Data Home Medications Medication Instructions Recorded Confirmed Stiolto Respimat 2 inh INHALATION DAILY 01/16/21 03/03/21 atorvastatin 80 mg PO HS 01/16/21 03/03/21 ergocalciferol (vitamin D2) 1,250 mcg PO WEEKLY 01/16/21 03/03/21 metformin 1,000 mg PO BID 01/16/21 03/03/21 oxybutynin chloride 5 mg PO EVERY OTHER DAY 01/16/21 03/03/21 metoprolol succinate 50 mg PO DAILY 03/03/21 03/03/21 omega-3 acid ethyl esters 1 cap PO DAILY 03/03/21 03/03/21 pantoprazole 40 mg PO DAILY 03/03/21 03/03/21 tramadol 50 mg PO BID PRN 03/03/21 03/03/21 Allergies Allergy/AdvReac Type Severity Reaction Status Date / Time Penicillins Allergy Mild Unknown Verified 03/04/21 10:27 Review of Systems Review of Systems: All systems reviewed & are unremarkable except as noted in HPI and below PMFSH Past Medical History Medical History Acute on chronic blood loss anemia Arthritis COPD (chronic obstructive pulmonary disease) COPD exacerbation Depression Diabetes Excessive hunger Excessive thirst Hair loss High cholesterol History of arthritis History of cataract History of stroke HTN (hypertension) Hyperlipidemia Melena Memory loss Right shoulder pain Rotator cuff tendinitis Sleep apnea SOB (shortness of breath) Stomach ulcer Urinary frequency Wears glasses Weight gain Family History Family History Father Cancer Other Unknown family medical history Social History Social History Smoking packs per day: 1 Smoking cigarettes per day: 20.0 Years smoked: 5 Smoking pack-years: 5.00 Smoking status: Former smoker Tobacco type: cigarettes Alcohol intake: never Substance use: never Gender identity (if verbalized by the patient): Female Spiritual care concerns: No Exam Const: General: no acute distress and alert Orientation/consciousness: patient oriented x3 HENMT: Head: normal to inspection Mouth: Yes moist mucous membranes Teeth and gingiva: edentulous Eyes: Pupils: Equal, round and reactive pupils present Resp: Effort & Inspection: normal respiratory effort Auscultation: clear to auscultation bilaterally Cardio: Rate: regular rate Rhythm: regular rhythm GI: Rectal Exam: normal sphincter tone, heme positive stool and External hemorrhoid(s) present Other: Full and round, non-tender. Bowel sounds normal. Skin: General skin exam: normal color Neuro: General: patient oriented x3, moves all extremities and no focal motor deficits Extrem: General: normal to inspection Psych: Appearance: disheveled Attitude: cooperative (very poor historian) Course Course Emergency Course: I went through the patient's bag of medications again, she is unsure as to why she takes several of her medications including an antibiotic. She does not take a lot of aspirin. I spoke with Dr. Patel
[2021-03-11 21:06] VITALS: BP 128/66; PULSE 82; RESP 18; O2SAT 94
[2021-03-11] MEDS: PANTOPRAZOLE SODIUM IV 40 MG VIAL IV PUSH (21:11)
== END 2021-03-11 22:16 | disposition home or self-care (01) ==
PROVIDERS: Emergency Medicine; Emergency Provider Emergency Medicine; PCP Nurse Practitioner Family
DX: K92.1 Melena (principal); D64.9 Anemia, unspecified; M19.90 Unspecified osteoarthritis, unspecified site; J44.9 Chronic obstructive pulmonary disease, unspecified; E11.9 Type 2 diabetes mellitus without complications; E78.00 Pure hypercholesterolemia, unspecified; I10 Essential (primary) hypertension; E78.5 Hyperlipidemia, unspecified; G47.30 Sleep apnea, unspecified; Z86.73 Personal history of transient ischemic attack (TIA), and cerebral infarction without residual deficits; Z79.899 Other long term (current) drug therapy; Z87.891 Personal history of nicotine dependence
CPT/HCPCS: 36415; 80053; 85025; 85610; 85730; 86850; 86900; 86901; 96374; 99284; C9113; J7060

== ENCOUNTER 2021-03-13 12:57 | Inpatient (IN) | payer MEDICARE, MEDICAID, SELFPAY ==
[2021-03-13] VITALS (24 sets, daily range): BP systolic 112–147; BP diastolic 58–88; PULSE 67–99; RESP 16–35; TEMP 36.7–37.1; O2SAT 84–98; BMI 27.1
--- NOTE | ~2021-03-13 | XR_ITS ---
EXAMINATION: XR chest 1V portable INDICATION: Shortness of breath, COVID 19 TECHNIQUE: Portable AP chest at 1321 hours COMPARISON: 02/12/2021 FINDINGS: There are airspace opacities of the upper lung zones. No pleural effusion or pneumothorax i s identified. The cardiomediastinal silhouette is normal. There is osteoarthritis of the shoulders. M etallic densities are noted in the right breast. IMPRESSION: 1. Airspace opacities of the upper lung zones, consistent with atelectasis versus pneumonia. Reviewed, dictated and finalized at location A. IMPRESSION: 1. Airspace opacities of the upper lung zones, consistent with atelectasis vers us pneumonia.
--- NOTE | ~2021-03-13 | CT_ITS ---
EXAMINATION: CTA chest PE protocol DATE: 03/13/2021 17:05 INDICATION: Shortness of breath. TECHNIQUE: Computed tomography (CT) pulmonary angiogram of the chest was performed with 100 mL Omnipa que-350 intravenous contrast. Additional 3D reconstructions utilizing coronal maximum intensity proje ction (MIP) were performed. Automated exposure control and iterative reconstruction technique were em ployed. The dose-length product was 419.53 mGy-cm. COMPARISON: None FINDINGS: Good contrast opacification of the pulmonary arteries. There is moderate streak artifact from dense c ontrast in the superior vena cava and right atrium. Mild to moderate scattered respiratory motion art ifact most prominent at the lung bases. Overall this mildly decreases sensitivity in some of the subs egmental pulmonary arteries. No definite pulmonary embolism. Mild emphysema. Groundglass opacities in the right upper and bilateral lower lobes suspicious for pneumonia. Very small bilateral pleural eff usions with some dependent atelectasis in the bilateral lower lobes. Mild cardiomegaly. Atherosclerot ic coronary artery calcific location. Mild enlargement of the central pulmonary arteries consistent w ith pulmonary arterial hypertension. Thoracic aorta is normal in caliber with no dissection. Normal v ariant retroesophageal aberrant right subclavian artery. Mildly prominent but still normal-sized like ly reactive mediastinal lymph nodes. There are couple clips at the right breast, likely marking for p rior biopsy. Small sliding-type hiatal hernia. Mild upper thoracic dextroscoliosis with likely develo pmental anterior and posterior spinal fusion at T5-T6. IMPRESSION: 1. No pulmonary motion. Sensitivity decreased in some of the subsegmental pulmonary arteries due to c ombination of streak and respiratory motion artifact along with good but suboptimal contrast opacific ation of the pulmonary arteries. 2. Groundglass opacities in the right upper and bilateral lower lobes which is concerning for pneumon ia with differential including less likely pulmonary edema or atelectasis. 3. Very small bilateral pleural effusions. 4. Mild emphysema. 5. Cardiomegaly and enlargement of the central pulmonary arteries, the latter consistent with pulmona ry arterial hypertension. 6. Small sliding-type hiatal hernia. Reviewed, dictated and finalized at location A. IMPRESSION: 1. No pulmonary motion. Sensitivity decreased in some of the subsegmental pulmo nary arteries due to combination of streak and respiratory motion artifact juancho g with good but suboptimal contrast opacification of the pulmonary arteries. 2. Groundglass opacities in the right upper and bilateral lower lobes which is concerning for pneumonia with differential including less likely pulmonary jose antonio a or atelectasis. 3. Very small bilateral pleural effusions. 4. Mild emphysema. 5. Cardiomegaly and enlargement of the central pulmonary arteries, the latter c onsistent with pulmonary arterial hypertension. 6. Small sliding-type hiatal hernia.
--- NOTE | 2021-03-13 12:52 | ECG_ITS ---
Measurements Intervals [place] Rate: 96 P: 33 HI: 156 QRS: 19 QRSD: 79 T: 102 QT: 396 QTc: 503 Interpretive Statements SINUS RHYTHM ST ABNORMALITY IN ANTEROLAT/HIGH LAT LEADS- CONSIDER ISCHEMIA ABNORMAL ECG Electronically Signed On 03-13-2021 19:59:01 CDT by Ehsan Sierra D.O.
[2021-03-13 13:42] LABS: Basophils Absolute Auto 0.1 K/mm3 (0.0-0.1); Basophils Percent Auto 0.6 % (0.2-1.2); Eosinophils Absolute Auto 0.2 K/mm3 (0-0.3); Eosinophils Percent Auto 2.3 % (0-4.4); Hematocrit 25.1 % (37.0-47.0); Hemoglobin 7.8 g/dL (12.0-15.0); Immature Granulocyte Absolute 0.08 K/mm3 (0.00-0.031); Immature Granulocyte Percent A 0.8 % (0-0.5); Lymphocytes Absolute Auto 0.85 K/mm3 (0.9-3.2); Lymphocytes Percent Auto 8.9 % (18.3-44.2); Mean Corpuscular HGB Conc 31.1 g/dl (32-36); Mean Corpuscular Hemoglobin 30.6 pg (26-34); Mean Corpuscular Volume 98.4 fl (80-100); Mean Platelet Volume 9.5 fl (7.4-10.4); Monocytes Absolute Auto 0.6 K/mm3 (0.1-0.6); Monocytes Percent Auto 6.2 % (2.6-8.5); Neutrophils Absolute Auto 7.8 K/mm3 (1.3-6.7); Neutrophils Percent Auto 81.2 % (45.5-73.1); Nucleated Red Blood Cells Absolute Auto 0.1 K/mm3 (0.0-0.012); Nucleated Red Blood Cells Perc 1.1 % (0.0-0.2); Platelet Count Result 217 k/mm3 (150-375); Red Blood Count 2.55 M/mm3 (4.2-5.4); Red Cell Distribution Width 18.2 % (11.5-14.5); White Blood Count 9.6 K/mm3 (4.5-10.0)
[2021-03-13 13:52] LABS: Prothrombin Time 12.9 Seconds (11.1-14.7)
[2021-03-13 13:53] LABS: Anion Gap 6 mmol/L (8-16); Blood Urea Nitrogen 22 mg/dL (7-17); Calcium 8.9 mg/dL (8.4-10.2); Carbon Dioxide 26 mmol/L (22-30); Chloride 106 mmol/L (98-107); Estimated CRCL calculation 36 ml/min; Estimated Glomerular Filt Rate 50; Glucose 141 mg/dL (65-110); Potassium 3.7 mmol/L (3.4-5.0); Sodium 138 mmol/L (137-145)
[2021-03-13 13:55] LABS: D Dimer 2.49 ug/mL (<0.48)
[2021-03-13] MEDS: IPRATROPIUM BR 0.02% INH SOLN 0.5 MG/2.5 ML VIAL INHALATION ×2 (14:07→22:12)
[2021-03-13] MEDS: ALBUTEROL SULFATE NEB 2.5 MG/0.5 ML INH 5 MG INHALATION ×2 (14:07→22:12)
[2021-03-13 14:25] LABS: Alanine Aminotransferase 14 U/L (4-35); Albumin Level 4.1 g/dL (3.5-5.1); Alkaline Phosphatase 91 U/L (38-126); Aspartate Amino Transferase 20 U/L (14-36); Bilirubin,Total 0.6 mg/dL (0.2-1.3)
[2021-03-13 14:42] LABS: NT Pro B Type Natriuretic Pept 6420 pg/mL (5-100); Troponin I 0.186 ng/mL (0.000-0.034)
[2021-03-13] MEDS: methylPREDNISolone SOD SUCC 125 MG VIAL IV PUSH (14:52)
--- NOTE | 2021-03-13 15:16 | ED.SOB ---
HPI - SOB/Dyspnea General Chief Complaint: Shortness of Breath/Dyspnea Stated Complaint: sob Time Seen by Provider: 03/13/21 13:45 History of Present Illness HPI Narrative: Patient presents with shortness of breath. States she has had shortness of breath for the past couple months however this morning when she tried to get up from bed to the restroom she was more short of breath than usual. She denies any fevers, increasing cough denies any chest pain nausea vomiting or diarrhea. Shortness of breath is mostly with physical activity there is no clear positional component to her shortness of breath Related Data Home Medications Medication Instructions Recorded Confirmed Stiolto Respimat 2 inh INHALATION DAILY 01/16/21 03/13/21 atorvastatin 80 mg PO HS 01/16/21 03/13/21 metformin 1,000 mg PO BID 01/16/21 03/13/21 oxybutynin chloride 5 mg PO DAILY 01/16/21 03/13/21 metoprolol succinate 50 mg PO DAILY 03/03/21 03/13/21 omega-3 acid ethyl esters 2 cap PO BID 03/03/21 03/13/21 pantoprazole 40 mg PO DAILY 03/03/21 03/13/21 hydrochlorothiazide 25 mg PO DAILY 03/13/21 03/13/21 levothyroxine 25 mcg PO DAILY 03/13/21 03/13/21 meloxicam 15 mg PO DAILY 03/13/21 03/13/21 Allergies Allergy/AdvReac Type Severity Reaction Status Date / Time Penicillins Allergy Mild Unknown Verified 03/04/21 10:27 Review of Systems Review of Systems: CONSTITUTIONAL: Denies fever, chills, or sweats. EYES: Denies visual changes, redness, or discharge. ENT: Denies rhinorrhea, congestion, sore throat, or otalgia. CARDIOVASCULAR: Denies chest pain, palpitations, or edema. RESPIRATORY: Denies cough GASTROINTESTINAL: Denies abdominal pain, nausea, vomiting, or diarrhea. GENITOURINARY: Denies dysuria or hematuria. SKIN: Denies rash or itching. MUSCULOSKELETAL: Denies back pain, joint pain, or myalgia. NEUROLOGIC: Denies headache, numbness, dizziness, or weakness. PSYCHIATRIC: Denies anxiety or depression. All systems reviewed & are unremarkable except as noted in HPI and below PMFSH Past Medical History Medical History Acute on chronic blood loss anemia Arthritis COPD (chronic obstructive pulmonary disease) COPD exacerbation Depression Diabetes Excessive hunger Excessive thirst Hair loss High cholesterol History of arthritis History of cataract History of stroke HTN (hypertension) Hyperlipidemia Melena Memory loss Right shoulder pain Rotator cuff tendinitis Sleep apnea SOB (shortness of breath) Stomach ulcer Urinary frequency Wears glasses Weight gain Family History Family History Father Cancer Other Unknown family medical history Social History Social History Smoking packs per day: 1 Smoking cigarettes per day: 20.0 Years smoked: 5 Smoking pack-years: 5.00 Smoking status: Former smoker Tobacco type: cigarettes Second hand tobacco smoke exposure: Yes Alcohol intake: former Substance use: never Gender identity (if verbalized by the patient): Female Spiritual care concerns: No Exam Narrative: GENERAL: Well-appearing, well-nourished, and in no acute distress. HEAD: Normocephalic, atraumatic. EYES: PERRLA and EOMI. ENT: Nares clear, no rhinorrhea or epistaxis. Mucous membranes moist. NECK: Supple. No masses. No JVD CHEST: Clear to auscultation. Slightly diminished aeration in all lung field no respiratory distress. No wheezes rales or rhonchi HEART: Regular rate and rhythm. No murmur heard. Normal peripheral pulses. ABDOMEN: Soft, nontender, nondistended, normal active bowel sounds. EXTREMITIES: Normal range of motion. No edema. REctal: Nursing medical records coder was present there were multiple hemorrhoids stool was dark stool occult was positive SKIN: Warm, dry, no rash. NEURO: No focal deficits. Alert and oriented x3. PSYCH: Normal mood and affect.
[2021-03-13 17:03] LABS: Lactic Acid Reflex 1.2 mmol/L (0.7-2.1)
[2021-03-13 17:20] LABS: Troponin I 0.338 ng/mL (0.000-0.034)
--- NOTE | 2021-03-13 18:58 | PC.NURSE ---
This patient, Carey Turpin, was admitted to IMU Room 212-01. Patient/family oriented to hospital policies and general routines including ID bracelet, bed and alarms, visiting hours, pain management, procedures, bathroom and other care routines, personal items, smoking policy, room service/diet, and visiting hours. Information on how to activate the Rapid Response Team has been discussed. Patient/Family are encouraged to report perceived risks to care and to ask questions if they do not understand what they are told or what they should do.
[2021-03-13] MEDS: SODIUM CHLORIDE 0.9% IV 1,000 ML 125 ML IV CONT (19:07)
[2021-03-13 20:43] LABS: Glucose Point of Care 339 mg/dl (65-105)
[2021-03-13 20:47] LABS: Troponin I 0.234 ng/mL (0.000-0.034)
--- NOTE | 2021-03-13 22:21 | PM.IMHP ---
H&P: HPI History of Present Illness Date/Time: 03/13/21 22:21 Chief Complaint: Shortness of breath Narrative: Patient presents with shortness of breath. She states her shortness of breath has been ongoing for past couple months however this morning when she tried to get up from the bed to the restroom she was extremely short of breath and felt like she was running 1000 mi marathon. She then called EMS who brought her to the ER for further evaluation. She denies any chest pain nausea vomiting abdominal pain. Shortness of breath exertional. She denies any fever or increasing cough. She has a underlying history of COPD. She quit smoking about a month or so ago. evaluation in the ER she is noted to be anemic at 7.8, BNP elevated at 64 20 and troponin of 0.186 D-dimer elevated at 2.49 chest x-ray with airspace opacities the upper lung zones consistent with atelectasis versus pneumonia. CTA done showed no pulmonary embolism but ground-glass opacity in the right upper and bilateral lower lobes concerning for pneumonia along with very small bilateral pleural effusions and cardiomegaly. She she also reports ongoing dark colored stool this is been an ongoing problem. His test positive for occult blood done in the ER. She is admitted for further evaluation and management Review of Systems Review of Systems: - CONSTITUTIONAL: Denies weight loss, fever and chills. - HEENT: Denies changes in vision and hearing - RESPIRATORY: Reports SOB and chronic cough. - CV: Denies palpitations and CP. - GI: Denies abdominal pain, nausea, vomiting and diarrhea. - : Denies dysuria and urinary frequency. - MSK: Denies myalgia and joint pain. - SKIN: Denies rash and pruritus. - NEUROLOGICAL: Denies headache and syncope. - PSYCHIATRIC: Denies recent changes in mood. Denies anxiety and depression. All systems reviewed & are unremarkable except as noted in HPI and below Constitutional: Constitutional: Reports fatigue and Reports weakness Neurologic: Reports weakness Endocrine: Endocrine: Reports fatigue PMFSH Past Medical History Medical History Acute on chronic blood loss anemia Arthritis COPD (chronic obstructive pulmonary disease) COPD exacerbation Depression Diabetes Excessive hunger Excessive thirst Hair loss High cholesterol History of arthritis History of cataract History of stroke HTN (hypertension) Hyperlipidemia Melena Memory loss Right shoulder pain Rotator cuff tendinitis Sleep apnea SOB (shortness of breath) Stomach ulcer Urinary frequency Wears glasses Weight gain Family History Family History Father Cancer Other Unknown family medical history Social History Social History Smoking packs per day: 1 Smoking cigarettes per day: 20.0 Years smoked: 5 Smoking pack-years: 5.00 Smoking status: Former smoker Tobacco type: cigarettes Second hand tobacco smoke exposure: Yes Alcohol intake: former Substance use: never Gender identity (if verbalized by the patient): Female Spiritual care concerns: No Meds Home Medications and Allergies Home Medications Medication Instructions Recorded Confirmed Type Stiolto Respimat 2 inh INHALATION DAILY 01/16/21 03/13/21 History atorvastatin 80 mg PO HS 01/16/21 03/13/21 History hydroxyzine pamoate [Vistaril] 25 mg PO TID PRN #30 cap 01/16/21 03/13/21 Rx metformin 1,000 mg PO BID 01/16/21 03/13/21 History oxybutynin chloride 5 mg PO DAILY 01/16/21 03/13/21 History metoprolol succinate 50 mg PO DAILY 03/03/21 03/13/21 History omega-3 acid ethyl esters 2 cap PO BID 03/03/21 03/13/21 History pantoprazole 40 mg PO DAILY 03/03/21 03/13/21 History hydrochlorothiazide 25 mg PO DAILY 03/13/21 03/13/21 History levothyroxine 25 mcg PO DAILY 03/13/21 03/13/21 History meloxicam 15 mg PO DAILY 03/13
[2021-03-14] VITALS (22 sets, daily range): BP systolic 100–131; BP diastolic 54–73; PULSE 67–87; RESP 16–22; TEMP 36.1–36.9; O2SAT 91–100
--- NOTE | 2021-03-14 01:53 | PC.NURSE ---
03/13/212214 during admission suicide assessment pt states she once when she was with an ex-boyfriend she thought he wanted her so she collected her glyburide and considered tasking them to kill herself but she couldn't because she didn't want to . Pt states she would never kill herself, she has a grandchild she hasn't seen yet. Thi Diaz RN notified.
[2021-03-14] MEDS: ALBUTEROL SULFATE NEB 2.5 MG/0.5 ML INH 5 MG INHALATION ×3 (02:10→12:44)
[2021-03-14] MEDS: IPRATROPIUM BR 0.02% INH SOLN 0.5 MG/2.5 ML VIAL INHALATION ×3 (02:10→12:44)
--- NOTE | 2021-03-14 02:25 | PC.NURSE ---
03/13/21 [id number] pt states she has not had covid vaccine.
[2021-03-14] MEDS: ATORVASTATIN 40 MG TABLET 80 MG PO ×2 (02:46→22:28)
[2021-03-14 03:41] LABS: Folic Acid 11.9 ng/mL (2.76->20)
[2021-03-14] MEDS: LEVOTHYROXINE SODIUM 25 MCG TABLET PO (06:27)
[2021-03-14 08:38] LABS: Glucose Point of Care 179 mg/dl (65-105)
[2021-03-14] MEDS: PANTOPRAZOLE SODIUM IV 40 MG VIAL IV PUSH ×2 (08:49→22:28)
[2021-03-14] MEDS: hydrOXYzine pamoate 25 MG CAPSULE PO (08:50)
[2021-03-14] MEDS: METOPROLOL SUCCINATE EXT REL 50 MG TABCR PO (08:50)
[2021-03-14] MEDS: hydroCHLOROthiazide 25 MG TABLET PO (08:50)
[2021-03-14] MEDS: MELOXICAM 7.5 MG TABLET 15 MG PO (08:50)
[2021-03-14] MEDS: OMEGA 3 POLYUNSAT FATTY ACIDS 1 GM CAP 2 GM PO ×2 (08:51→17:44)
[2021-03-14 09:01] LABS: Iron 79 ug/dL (37-170)
[2021-03-14 09:11] LABS: Percent Iron Saturation 22 % (20-50)
--- NOTE | 2021-03-14 11:36 | WPDGICN ---
Assessment and Plan Assessment and plan (1) Occult blood in stools: Code(s): R19.5 - Other fecal abnormalities Status: Acute Assessment and Plan: recent work up with egd and colonoscopy negative may need to repeat another EGD to rule out any sort of gi blood loss but await until respiratory status improves, if negative egd then we can order SB capsule endoscopy as outpatient (2) Acute on chronic blood loss anemia: Code(s): D62 - Acute posthemorrhagic anemia Status: Acute Assessment and Plan: she also could have other reason for anemia (3) Pneumonia: Code(s): J18.9 - Pneumonia, unspecified organism Status: Acute Assessment and Plan: started on treatment (4) Melena: Code(s): K92.1 - Melena Status: Acute Assessment and Plan: on iv protonix for now (5) Acute and chronic respiratory failure: Code(s): J96.20 - Acute and chronic respiratory failure, unspecified whether with hypoxia or hypercapnia Status: Acute Assessment and Plan: treated (6) COPD (chronic obstructive pulmonary disease): Code(s): J44.9 - Chronic obstructive pulmonary disease, unspecified Status: Acute GI Consult Note Consult date/time: 03/14/21 11:36 Reason for consult: dark stool, acute on chronic anemia HPI: Carey Turpin is a 65 year old female with history of COPD, former smoker, remote history of laryngeal cancer for which had temporary G-tube with recent hospitalization for anemia, had EGD and colonoscopy unremarkable for bleeding. She is back again with worsening shortness of breath, again noted dark stools. She has chronic anemia, hb 9-[address] scan reviewed, groundglass opacities in the right upper and bilateral lower lobes which is concerning for pneumonia with differential including less likely pulmonary edema or atelectasis, mild emphysema, cardiomegaly and enlargement of the central pulmonary arteries, the latter consistent with pulmonary arterial hypertension. Admitted to floor, on covid precaution and started on antibiotics, also iv protonix. Review of Systems Constitutional: Constitutional: Denies chills Eyes: Eyes: Reports no additional eye complaints ENT: Reports Normal hearing present Cardiovascular: Cardiovascular: Denies diaphoresis Respiratory: Respiratory: Reports dyspnea on exertion Gastrointestinal: Comments: dark stool Genitourinary: Genitourinary: Denies hematuria Musculoskeletal: Musculoskeletal: Denies neck pain Integumentary/Breasts: Skin/Breast: Denies dry skin Neurologic: Reports system reviewed and no additional complaints, except as documented Psychiatric: Psychiatric: Reports no additional psychiatric complaints [facility] Past Medical History Medical History (Updated 03/14/21 @ 11:43 by Umer Zhu MD) Acute and chronic respiratory failure Acute on chronic blood loss anemia Arthritis COPD (chronic obstructive pulmonary disease) COPD exacerbation Depression Diabetes Excessive hunger Excessive thirst Hair loss High cholesterol History of arthritis History of cataract History of stroke HTN (hypertension) Hyperlipidemia Melena Memory loss Occult blood in stools Right shoulder pain Rotator cuff tendinitis Sleep apnea SOB (shortness of breath) Stomach ulcer Urinary frequency Wears glasses Weight gain Family History Family History Father Cancer Other Unknown family medical history Social History Social History Smoking packs per day: 1 Smoking cigarettes per day: 20.0 Years smoked: 5 Smoking pack-years: 5.00 Smoking status: Former smoker Tobacco type: cigarettes Second hand tobacco smoke exposure: Yes Alcohol intake: former Substance use: never Gender identity (if verbalized by the patient): Female Spiritual care concerns: No
--- NOTE | 2021-03-14 12:29 | PM.CNCAR ---
Assessment and Plan Additional Plan SOB likely multifactorial with COPD and anemia, hx of TTE with dynamic LVOT obstruction which may be contributing factor, plan increase HGB > 8 gm/dL, correct iron deficiency, TTE History of Present Illness History of Present Illness Consult date/time: 03/14/21 12:29 Reason For Visit: Hypoxia Narrative: Patient presents with SOB that has been chronic symptoms for her for several months and currently SOB with mild activity including in house activity. She has been also having problems with bleeding and she had bleeding episode yesterday with black stool. She had been evaluated for upper GI bleeding in OSH. She had Hx of smoking and recently quiet smoking. in ER she was noted to have anemia and HGB 7.8 gm/dL. Today she feels better but still with her chronic SOB. Her prior EGD was unreveiling for etiology of upper GI bleeding. One report of prior ECHo with dynamic LVOT obstruction. Review of Systems Review of Systems: All systems reviewed & are unremarkable except as noted in HPI and below PMFSH Past Medical History Medical History (Updated 03/14/21 @ 11:43 by Umer Zhu MD) Acute and chronic respiratory failure Acute on chronic blood loss anemia Arthritis COPD (chronic obstructive pulmonary disease) COPD exacerbation Depression Diabetes Excessive hunger Excessive thirst Hair loss High cholesterol History of arthritis History of cataract History of stroke HTN (hypertension) Hyperlipidemia Melena Memory loss Occult blood in stools Right shoulder pain Rotator cuff tendinitis Sleep apnea SOB (shortness of breath) Stomach ulcer Urinary frequency Wears glasses Weight gain Family History Family History Father Cancer Other Unknown family medical history Social History Social History Smoking packs per day: 1 Smoking cigarettes per day: 20.0 Years smoked: 5 Smoking pack-years: 5.00 Smoking status: Former smoker Tobacco type: cigarettes Second hand tobacco smoke exposure: Yes Alcohol intake: former Substance use: never Gender identity (if verbalized by the patient): Female Spiritual care concerns: No Meds Home Medications and Allergies Home Medications Medication Instructions Recorded Confirmed Type Stiolto Respimat 2 inh INHALATION DAILY 01/16/21 03/13/21 History atorvastatin 80 mg PO HS 01/16/21 03/13/21 History hydroxyzine pamoate [Vistaril] 25 mg PO TID PRN #30 cap 01/16/21 03/13/21 Rx metformin 1,000 mg PO BID 01/16/21 03/13/21 History oxybutynin chloride 5 mg PO DAILY 01/16/21 03/13/21 History metoprolol succinate 50 mg PO DAILY 03/03/21 03/13/21 History omega-3 acid ethyl esters 2 cap PO BID 03/03/21 03/13/21 History pantoprazole 40 mg PO DAILY 03/03/21 03/13/21 History hydrochlorothiazide 25 mg PO DAILY 03/13/21 03/13/21 History levothyroxine 25 mcg PO DAILY 03/13/21 03/13/21 History meloxicam 15 mg PO DAILY 03/13/21 03/13/21 History Allergies Allergy/AdvReac Type Severity Reaction Status Date / Time Penicillins Allergy Mild Unknown Verified 03/04/21 10:27 Vital Signs Vital Signs - 24 hr 03/13/21 12:53 03/13/21 14:09 03/13/21 14:13 Temperature 37.1 C Pulse Rate 98 86 88 Respiratory Rate 27 H 20 26 H Blood Pressure 131/58 L Pulse Oximetry 91 03/13/21 14:30 03/13/21 14:31 03/13/21 14:45 Temperature Pulse Rate 94 95 91 Respiratory Rate 35 H 35 H 24 H Blood Pressure 117/72 Pulse Oximetry 03/13/21 14:46 03/13/21 14:47 03/13/21 15:00 Temperature Pulse Rate 90 90 95 Respiratory Rate 27 H 25 H 27 H Blood Pressure 126/73 Pulse Oximetry 96 03/13/21 15:17 03/13/21 15:34 03/13/21 15:45 Temperature Pulse Rate 97 93 96 Respiratory Rate 16 24 H 28 H Blood Pressure 147/88 H Pulse Oximetry 85 L 84 L 91 03/13/21 15:46 03/13/21 16:05 03/13/21 16:18 Temperature
[2021-03-14 12:34] LABS: Glucose Point of Care 150 mg/dl (65-105)
--- NOTE | 2021-03-14 17:27 | PM.IMPN ---
Progress Note: A&P Assessment and Plan (1) Anemia: Qualifiers: Anemia type: unspecified type Qualified Code(s): D64.9 - Anemia, unspecified Code(s): D64.9 - Anemia, unspecified Status: Acute Assessment and Plan: -Acute anemia, may be secondary to bedbugs as she has a significant problem infestation in her home. Recent EGD colonoscopy was negative in plan for outpatient capsule endoscopy. Turning Machine Set Up Operator was consulted who will repeat EGD prior to capsule endoscopy to fully evaluate for GI bleed. -goal to keep hemoglobin greater than 8 especially with dyspnea symptoms -will trend with daily CBCs (2) Bedbug bite: Qualifiers: Encounter type: initial encounter Qualified Code(s): W57.XXXA - Bitten or stung by nonvenomous insect and other nonvenomous arthropods, initial encounter Code(s): W57.XXXA - Bitten or stung by nonvenomous insect and other nonvenomous arthropods, initial encounter Status: Acute Assessment and Plan: Consulting companion caregiver to see what resources we can provide. Patient appears to have no where else to go and is trying to fumigate her home while also living in it (3) Occult blood in stools: Code(s): R19.5 - Other fecal abnormalities Status: Acute Assessment and Plan: -consulting spanish tutor for anemia, recent EGD colonoscopy negative, plan for repeat EGD and if no sign of bleeding, patient may need capsule endoscopy (4) Acute and chronic respiratory failure: Code(s): J96.20 - Acute and chronic respiratory failure, unspecified whether with hypoxia or hypercapnia Status: Acute Assessment and Plan: Continue supplemental oxygen to keep oxygen saturation greater than 90% (5) Elevated troponin: Code(s): R77.8 - Other specified abnormalities of plasma proteins Status: Acute Assessment and Plan: Consult to Cardiology, elevated troponin downtrending, may be secondary to anemia, hemoglobin goal greater than 8 (6) COPD (chronic obstructive pulmonary disease): Code(s): J44.9 - Chronic obstructive pulmonary disease, unspecified Status: Acute Assessment and Plan: No wheezing heard on lung exam. Changing nebs to p.r.n. (7) Pneumonia: Code(s): J18.9 - Pneumonia, unspecified organism Status: Acute Assessment and Plan: -dyspnea likely related to anemia, however imaging concerning for pneumonia continuing IV antibiotics for now Rocephin azithromycin, will re-evaluate tomorrow. Patient has no leukocytosis or fever or sputum production -continue nebs, can change to p.r.n. (8) Hypoxia: Code(s): R09.02 - Hypoxemia Status: Acute Assessment and Plan: -may be secondary to anemia, hemoglobin goal greater than 8, may be pneumonia as well continue antibiotics for community-acquired pneumonia Additional Plan Diet: Heart healthy, will keep NPO midnight for possible EGD DVT prophylaxis: SCDs GI prophylaxis: Protonix Code status: Full code Disposition: Pending clinical course, likely home. Patient has bedbug infestation at home Time Spent With Patient Time with patient: 25 - 35 minutes Subjective Date/time seen: 03/14/21 17:27 patient examined. She has no new complaints. No chest pain or shortness of breath. She has had multiple evaluations with providers at [facility] and here for GI bleeding. She had EGD and colonoscopy which did not find a source of bleeding. To have capsule endoscopy done to further evaluate small-bowel bleed especially with her FOBT positive. However likely reason is bedbugs causing anemia, bedbugs situation is not under control. Will discuss with shelter case manager what resources we can provide. Patient may need to go to physical therapy with her weakness. This admission anemia is much worse than previous admissions. 1 unit blood transfusion overnight. Patient denies fever, chills, nausea, vomiting, diarrhea, chest pain, abdomi
[2021-03-14 18:04] LABS: Glucose Point of Care 150 mg/dl (65-105)
[2021-03-14 20:35] LABS: Glucose Point of Care 171 mg/dl (65-105)
[2021-03-15] VITALS (9 sets, daily range): BP systolic 102–126; BP diastolic 56–75; PULSE 56–72; RESP 14–22; TEMP 36.2–36.8; O2SAT 92–100
[2021-03-15 06:16] LABS: Hematocrit 25.1 % (37.0-47.0); Mean Corpuscular HGB Conc 31.9 g/dl (32-36); Mean Corpuscular Hemoglobin 30.9 pg (26-34); Mean Corpuscular Volume 96.9 fl (80-100); Mean Platelet Volume 9.7 fl (7.4-10.4); Platelet Count Result 194 k/mm3 (150-375); Red Blood Count 2.59 M/mm3 (4.2-5.4); Red Cell Distribution Width 18.2 % (11.5-14.5); White Blood Count 9.1 K/mm3 (4.5-10.0)
[2021-03-15] MEDS: LEVOTHYROXINE SODIUM 25 MCG TABLET PO (06:29)
[2021-03-15 06:32] LABS: Anion Gap 1 mmol/L (8-16); Blood Urea Nitrogen 21 mg/dL (7-17); Calcium 8.5 mg/dL (8.4-10.2); Carbon Dioxide 26 mmol/L (22-30); Chloride 109 mmol/L (98-107); Estimated CRCL calculation 42 ml/min; Estimated Glomerular Filt Rate 50; Glucose 108 mg/dL (65-110); Magnesium 2.2 mg/dL (1.6-2.3); Potassium 3.8 mmol/L (3.4-5.0); Sodium 136 mmol/L (137-145)
--- NOTE | 2021-03-15 07:21 | PM.IMPN ---
Progress Note: A&P Assessment and Plan (1) Anemia: Qualifiers: Anemia type: unspecified type Qualified Code(s): D64.9 - Anemia, unspecified Code(s): D64.9 - Anemia, unspecified Status: Acute Assessment and Plan: -Acute anemia, may be secondary to bedbugs as she has a significant problem infestation in her home. Recent EGD colonoscopy was negative and planned for outpatient capsule endoscopy. Director Of Psychiatry was consulted who will repeat EGD prior to capsule endoscopy as an outpatient to fully evaluate for GI bleed. He does have a history of gastric ulcer and required 7 unit of transfusion during 1 of her hospitalization. -goal to keep hemoglobin greater than 8 especially with dyspnea symptoms -continue to monitor H&H and transfuse PRBC if indicated. She has been transfused with 2 units of blood so far. Will GERD iron panel, vitamin B12, folic acid. (2) Bedbug bite: Qualifiers: Encounter type: initial encounter Qualified Code(s): W57.XXXA - Bitten or stung by nonvenomous insect and other nonvenomous arthropods, initial encounter Code(s): W57.XXXA - Bitten or stung by nonvenomous insect and other nonvenomous arthropods, initial encounter Status: Acute Assessment and Plan: Consulting career manager to see what resources we can provide. Patient appears to have no where else to go and is trying to fumigate her home while also living in it (3) Occult blood in stools: Code(s): R19.5 - Other fecal abnormalities Status: Acute Assessment and Plan: -gastroenterology service recommendations appreciated. recent EGD colonoscopy negative, plan for repeat EGD and if no sign of bleeding, patient may need capsule endoscopy but that will be done as an outpatient. (4) Acute and chronic respiratory failure: Code(s): J96.20 - Acute and chronic respiratory failure, unspecified whether with hypoxia or hypercapnia Status: Acute Assessment and Plan: Continue supplemental oxygen to keep oxygen saturation greater than 90% Wean oxygen if tolerated. Keep oxygen saturation above 90%. (5) Elevated troponin: Code(s): R77.8 - Other specified abnormalities of plasma proteins Status: Acute Assessment and Plan: Cardiology recommendations appreciated P Echo suggested dynamic outflow tract gradient and which is suggestive of hypertrophic cardiomyopathy. She has been told in the past that she might be having a hole in her heart likely PFO. Stress test but that can be done as an outpatient. (6) COPD (chronic obstructive pulmonary disease): Code(s): J44.9 - Chronic obstructive pulmonary disease, unspecified Status: Acute Assessment and Plan: No wheezing heard on lung exam. Continue bronchodilators. (7) Pneumonia: Code(s): J18.9 - Pneumonia, unspecified organism Status: Acute Assessment and Plan: -dyspnea likely related to anemia. Her thoracic imaging showed bilateral upper lobe ground-glass opacity with some infiltrate as well. Continue antibiotics for total of 5-7 day course. Will switch IV azithromycin to p.o.. Patient has no leukocytosis or fever or sputum production -continue bronchodilator on a as needed basis. (8) Hypoxia: Code(s): R09.02 - Hypoxemia Status: Acute Assessment and Plan: -may be secondary to anemia, hemoglobin goal greater than 8, may be pneumonia as well continue antibiotics for community-acquired pneumonia Additional Plan Diet: Heart healthy diet will be resumed. She is currently NPO for upper endoscopy. DVT prophylaxis: SCDs GI prophylaxis: Protonix Code status: Full code Disposition: Pending clinical course, likely home. Patient has bedbug infestation at home PT OT has been consulted. Subjective Date/time seen: 03/15/21 07:21 Her H&H is stable today. She has received 2 unit of PRBC so far. She is complaining of exertional dyspnea. She breanna
[2021-03-15 09:05] LABS: Glucose Point of Care 109 mg/dl (65-105)
[2021-03-15] MEDS: OMEGA 3 POLYUNSAT FATTY ACIDS 1 GM CAP 2 GM PO ×2 (10:09→19:41)
[2021-03-15] MEDS: hydrOXYzine pamoate 25 MG CAPSULE PO (10:10)
[2021-03-15] MEDS: hydroCHLOROthiazide 25 MG TABLET PO (10:10)
[2021-03-15] MEDS: METOPROLOL SUCCINATE EXT REL 50 MG TABCR PO (10:10)
[2021-03-15] MEDS: PANTOPRAZOLE SODIUM IV 40 MG VIAL IV PUSH ×2 (10:10→21:19)
--- NOTE | 2021-03-15 11:15 | PC.NURSE ---
This patient, Carey Turpin, was transferred to [[id number] ] on 03/15/21 at 1115. Personal belongings sent with patient. Report given to [ Fiorella BRANDON/Sadia BRANDON]. Appropriate documentation sent with patient.
--- NOTE | 2021-03-15 12:13 | PM.PNCARD ---
Progress Note: A&P Assessment and Plan (1) LEMUS (dyspnea on exertion): Code(s): R06.00 - Dyspnea, unspecified Status: Acute Assessment and Plan: Probably multifactorial, due to anemia, COPD, possible HOCM, rule out underlying coronary artery disease. Also being screened for COVID (2) Elevated troponin: Code(s): R77.8 - Other specified abnormalities of plasma proteins Status: Acute Assessment and Plan: Possible underlying CAD. Doubt much CHF. Eventual Lexiscan; can be done as OPT. (3) Acute on chronic blood loss anemia: Code(s): D62 - Acute posthemorrhagic anemia Status: Acute Assessment and Plan: Melena. H&H stable since admission. (4) Abnormal echocardiogram: Code(s): R93.1 - Abnormal findings on diagnostic imaging of heart and coronary circulation Status: Acute Assessment and Plan: Echo suggested dynamic outflow tract gradient, possible HOCM Unimpressive murmur, however. Patient says she was told she had a hole in her heart but she has does not sound like she has a VSD. Perhaps a PFO? Subjective Date/time seen: 03/15/21 12:13 Interval history: Follow-up for shortness of breath, possible HOCM, anemia and elevated trop, peak 0.34. Admitted with melena; earlier evaluation this month for GI bleed was unremarkable. Date of service 03/15/2021: Being evaluated for possible COVID, screen pending. No shortness of breath at rest, off O2, but complains of LEMUS. No recent chest pain. No more melena. States that she was told she had a hole in her heart several years ago at a hospital in [place]; no one recommended any follow-up that she can recall. Review of Systems Constitutional: Constitutional: Reports no additional constitutional complaints Eyes: Eyes: Reports no additional eye complaints ENT: Reports dysphagia (Chronic, since throat cancer ) Cardiovascular: Cardiovascular: Denies chest pain, Denies pedal edema and Denies lightheadedness Respiratory: Respiratory: Reports cough (Chronic cough) and Reports dyspnea on exertion Gastrointestinal: Gastrointestinal: Denies abdominal pain and Denies melena Genitourinary: Genitourinary: Denies hematuria Musculoskeletal: Musculoskeletal: Reports no additional musculoskeletal complaints Neurologic: Reports system reviewed and no additional complaints, except as documented Psychiatric: Psychiatric: Reports no additional psychiatric complaints Exam Const: General: comfortable and no acute distress Other: Talking on the phone, no distress HENMT: General nose exam: no epistaxis Other: Thick neck,? Webbed neck? Eyes: EOM: EOMs intact bilaterally Neck: Neck: supple Resp: Auscultation: rales (Very few rales in the left base) Cardio: Rate: regular rate Rhythm: regular rhythm Heart sounds: Murmur heart sound present Other: 1/6 ROSA M upper sternal border GI: Inspection: non-distended GI Palp: Yes Soft to palpation Skin: General skin exam: normal color and no rashes or lesions noted Neuro: Cognition (Neuro): normal cognition Speech: normal speech Motor exam (neuro): Normal motor muscle tone present throughout Extrem: General: no edema and no pedal edema Psych: Mental Status: mental status grossly normal Objective Data Vital Signs Vital Signs: Vital Signs - 24 hr 03/14/21 12:42 03/14/21 14:00 03/14/21 16:00 Temperature 98 F Pulse Rate 86 72 71 Respiratory Rate 18 20 Blood Pressure 100/55 L Pulse Oximetry 91 03/14/21 20:00 03/15/21 00:00 03/15/21 03:46 Temperature 97.4 F L 98 F 97.5 F L Pulse Rate 72 72 66 Respiratory Rate 16 18 20 Blood Pressure 108/54 L 121/72 126/70 Pulse Oximetry 100 98 100 03/15/21 04:00 03/15/21 08:00 03/15/21 08:57 Temperature 98.2 F Pulse Rate 65 70 61 Respiratory Rate 22 H 22 H Blood Pressure 123/66
[2021-03-15 12:41] LABS: Glucose Point of Care 101 mg/dl (65-105)
--- NOTE | 2021-03-15 17:32 | WPDGIPROGNO ---
Progress Note: A&P Assessment and Plan (1) Occult blood in stools: Code(s): R19.5 - Other fecal abnormalities Status: Acute Assessment and Plan: we will repeat egd in am, if negative then we will proceed with capsule endoscopy tomorrow no overt gib noted here and she had a negative colonoscopy recently (2) Acute on chronic blood loss anemia: Code(s): D62 - Acute posthemorrhagic anemia Status: Acute (3) LEMUS (dyspnea on exertion): Code(s): R06.00 - Dyspnea, unspecified Status: Acute Assessment and Plan: probably multifactorial, cardiology also on board (4) Acute and chronic respiratory failure: Code(s): J96.20 - Acute and chronic respiratory failure, unspecified whether with hypoxia or hypercapnia Status: Acute (5) COPD (chronic obstructive pulmonary disease): Code(s): J44.9 - Chronic obstructive pulmonary disease, unspecified Status: Acute Subjective Date/time seen: 03/15/21 17:32 Interval history: no report of melena, still some SOB Review of Systems Review of Systems: All systems reviewed & are unremarkable except as noted in HPI and below Exam Const: General: comfortable and no acute distress Other: Talking on the phone, no distress HENMT: General nose exam: no epistaxis Other: Thick neck,? Webbed neck? Eyes: EOM: EOMs intact bilaterally Neck: Neck: supple Resp: Auscultation: rales (Very few rales in the left base) Cardio: Rate: regular rate Rhythm: regular rhythm Heart sounds: Murmur heart sound present Other: 1/6 ROSA M upper sternal border GI: Inspection: non-distended GI Palp: Yes Soft to palpation and No Guarding due to palpation present (GI) Auscultation: normal bowel sounds Skin: General skin exam: no rashes or lesions noted Neuro: Speech: normal speech Motor exam (neuro): Normal motor muscle tone present throughout Extrem: General: no edema and no pedal edema Psych: Mental Status: mental status grossly normal Objective Data Vital Signs Vital Signs: Vital Signs - 24 hr 03/14/21 20:00 03/15/21 00:00 03/15/21 03:46 Temperature 97.4 F L 98 F 97.5 F L Pulse Rate 72 72 66 Respiratory Rate 16 18 20 Blood Pressure 108/54 L 121/72 126/70 Pulse Oximetry 100 98 100 03/15/21 04:00 03/15/21 08:00 03/15/21 08:57 Temperature 98.2 F Pulse Rate 65 70 61 Respiratory Rate 22 H 22 H Blood Pressure 123/66 Pulse Oximetry 92 92 03/15/21 10:10 03/15/21 12:00 Temperature 97.7 F Pulse Rate 70 62 Respiratory Rate 14 Blood Pressure 114/75 Pulse Oximetry 94 Intake/Output Intake/Output: Intake & Output 03/12/21 03/13/21 03/14/21 03/15/21 23:59 23:59 23:59 23:59 Intake Total 300 3160 Output Total 3175 700 Balance 300 15 700 Meds/Results Medications: Active Medications Generic Name Dose Route Start Last Admin Trade Name Freq PRN Reason Stop Dose Admin Albuterol 5 mg 03/14/21 17:40 Albuterol Sulfate Neb 2.5 Mg/0.5 Ml Inh INHALATION Q6HRT PRN dyspnea Atorvastatin Calcium 80 mg 03/14/21 01:30 03/14/21 22:28 Atorvastatin 40 Mg Tablet PO 80 mg HS ALIE Administration Azithromycin 500 mg 03/16/21 09:00 Azithromycin 250 Mg Tablet PO DAILY ALIE Dextrose 12.5 gm 03/14/21 01:17 Dextrose 50% 25 Gm/50 Ml Syringe IV PUSH PRN PRN Hypoglycemia Protocol Fish Oil 2 gm 03/14/21 09:00 03/15/21 10:09 [place] 3 Polyunsat Fatty Acids 1 Gm Cap PO 2 gm BID ALIE Administration Glucagon 1 mg 03/14/21 01:17 Glucagon For Inj 1 Mg Vial IM PRN PRN Hypoglycemia Protocol Glucose 15 gm 03/14/21 01:17 Glucose Oral Gel 15 Gm Of Glucse In 37.5 Gm Tube PO PRN PRN Hypoglycemia Protocol Hydrochlorothiazide 25 mg 03/14/21 09:00 03/15/21 10:10 Hydrochlorothiazide 25 Mg Tablet PO 25 mg DAILY ALIE Administration Hydroxyzine Pamoate 25 mg 03/14/21 01:14 03/15/21 10:10 Hydroxyzine Pamoate 25 Mg
[2021-03-15 18:11] LABS: Glucose Point of Care 103 mg/dl (65-105)
[2021-03-15 18:31] LABS: SARS-CoV-2 RNA PCR Positive
[2021-03-15] MEDS: ATORVASTATIN 40 MG TABLET 80 MG PO (21:17)
[2021-03-16] VITALS (9 sets, daily range): BP systolic 111–131; BP diastolic 55–75; PULSE 56–71; RESP 16–18; TEMP 36.1–36.7; O2SAT 92–98
[2021-03-16] MEDS: LEVOTHYROXINE SODIUM 25 MCG TABLET PO (05:30)
[2021-03-16 07:05] LABS: Basophils Absolute Auto 0.1 K/mm3 (0.0-0.1); Basophils Percent Auto 1.1 % (0.2-1.2); Eosinophils Absolute Auto 0.5 K/mm3 (0-0.3); Eosinophils Percent Auto 7.9 % (0-4.4); Hematocrit 28.9 % (37.0-47.0); Hemoglobin 8.7 g/dL (12.0-15.0); Immature Granulocyte Absolute 0.03 K/mm3 (0.00-0.031); Immature Granulocyte Percent A 0.5 % (0-0.5); Immature Reticulocyte Fraction 36.6 % (3.0-15.9); Lymphocytes Absolute Auto 0.89 K/mm3 (0.9-3.2); Lymphocytes Percent Auto 14.6 % (18.3-44.2); Mean Corpuscular HGB Conc 30.1 g/dl (32-36); Mean Corpuscular Hemoglobin 29.8 pg (26-34); Mean Platelet Volume 9.6 fl (7.4-10.4); Monocytes Absolute Auto 0.4 K/mm3 (0.1-0.6); Neutrophils Absolute Auto 4.2 K/mm3 (1.3-6.7); Neutrophils Percent Auto 68.9 % (45.5-73.1); Nucleated Red Blood Cells Perc 0.3 % (0.0-0.2); Platelet Count Result 227 k/mm3 (150-375); Red Blood Count 2.92 M/mm3 (4.2-5.4); Red Cell Distribution Width 17.6 % (11.5-14.5); Reticulocyte Hemoglobin Conten 28.8 pg (28.2-35.7); Reticulocyte Percent 6.99 % (0.7-4.3); White Blood Count 6.1 K/mm3 (4.5-10.0)
[2021-03-16 07:08] LABS: Anion Gap 8 mmol/L (8-16); Blood Urea Nitrogen 20 mg/dL (7-17); Calcium 8.2 mg/dL (8.4-10.2); Carbon Dioxide 26 mmol/L (22-30); Chloride 101 mmol/L (98-107); Estimated CRCL calculation 42 ml/min; Estimated Glomerular Filt Rate 50; Glucose 101 mg/dL (65-110); Potassium 3.8 mmol/L (3.4-5.0); Sodium 135 mmol/L (137-145)
[2021-03-16 07:34] LABS: Transferrin 255 mg/dL (206-381)
[2021-03-16 07:50] LABS: Iron 26 ug/dL (37-170)
[2021-03-16 07:59] LABS: Percent Iron Saturation 7 % (20-50)
[2021-03-16 08:17] LABS: Glucose Point of Care 92 mg/dl (65-105)
[2021-03-16] MEDS: PANTOPRAZOLE SODIUM IV 40 MG VIAL IV PUSH ×2 (10:10→20:14)
[2021-03-16 12:44] LABS: Glucose Point of Care 92 mg/dl (65-105)
[2021-03-16] MEDS: OMEGA 3 POLYUNSAT FATTY ACIDS 1 GM CAP 2 GM PO ×2 (13:08→17:17)
[2021-03-16] MEDS: hydroCHLOROthiazide 25 MG TABLET PO (13:08)
[2021-03-16] MEDS: METOPROLOL SUCCINATE EXT REL 50 MG TABCR PO (13:08)
--- NOTE | 2021-03-16 13:11 | PM.IMPN ---
Progress Note: A&P Assessment and Plan (1) Anemia: Qualifiers: Anemia type: unspecified type Qualified Code(s): D64.9 - Anemia, unspecified Code(s): D64.9 - Anemia, unspecified Status: Acute Assessment and Plan: - Recent EGD/colonoscopy was negative and planned for outpatient capsule endoscopy. Poultry Cleaner was consulted who will repeat EGD prior to capsule endoscopy to fully evaluate for GI bleed. He does have a history of gastric ulcer and required 7 unit of transfusion during 1 of her hospitalization. -goal to keep hemoglobin greater than 7-8 especially. -continue to monitor H&H and transfuse PRBC if indicated. She has been transfused with 2 units of blood so far. Her iron panel is suggestive of iron deficiency anemia. B12 level is normal. Folate is pending. I will start her on iron supplementation. (2) Bedbug bite: Qualifiers: Encounter type: initial encounter Qualified Code(s): W57.XXXA - Bitten or stung by nonvenomous insect and other nonvenomous arthropods, initial encounter Code(s): W57.XXXA - Bitten or stung by nonvenomous insect and other nonvenomous arthropods, initial encounter Status: Acute Assessment and Plan: Consulting medicare contact specialist to see what resources we can provide. Patient appears to have no where else to go and is trying to fumigate her home while also living in it (3) Occult blood in stools: Code(s): R19.5 - Other fecal abnormalities Status: Acute Assessment and Plan: -gastroenterology service recommendations appreciated. recent EGD colonoscopy negative, plan for repeat EGD and if no sign of bleeding, patient may need capsule endoscopy. (4) Acute and chronic respiratory failure: Code(s): J96.20 - Acute and chronic respiratory failure, unspecified whether with hypoxia or hypercapnia Status: Acute Assessment and Plan: She was requiring oxygen supplementation at the time of presentation but now has been weaned down to room air. Oxygen supplementation only if oxygen saturation is less than 90% (5) Elevated troponin: Code(s): R77.8 - Other specified abnormalities of plasma proteins Status: Acute Assessment and Plan: Cardiology recommendations appreciated. Echo suggested dynamic outflow tract gradient and which is suggestive of hypertrophic cardiomyopathy. She has been told in the past that she might be having a hole in her heart likely PFO. Stress test but that can be done as an outpatient. (6) COPD (chronic obstructive pulmonary disease): Code(s): J44.9 - Chronic obstructive pulmonary disease, unspecified Status: Acute Assessment and Plan: No wheezing heard on lung exam. Continue bronchodilators. (7) Pneumonia: Code(s): J18.9 - Pneumonia, unspecified organism Status: Acute Assessment and Plan: -dyspnea likely related to anemia and COVID-19. Her thoracic imaging showed bilateral upper lobe ground-glass opacity with some infiltrate as well. She was initially started on antibiotic with ceftriaxone and azithromycin but that will be stopped today since her COVID-19 test came back positive which can explain her thoracic imaging findings. I will start her on dexamethasone 6 mg IV once a day. Patient has no leukocytosis or fever or sputum production -continue bronchodilator on a as needed basis. (8) Hypoxia: Code(s): R09.02 - Hypoxemia Status: Acute Assessment and Plan: As above (9) COVID: Code(s): U07.1 - COVID-19 Status: Acute Assessment and Plan: I will start her on dexamethasone 6 mg IV once a day. She was requiring oxygen supplementation at the time of presentation though she has been weaned down to room air now. He Additional Plan Diet: Heart healthy diet will be resumed after endoscopy. She is currently NPO for upper endoscopy. DVT prophylaxis: SCDs GI prophylaxis: Protonix Code st
--- NOTE | 2021-03-16 14:23 | WPDGIPROGNO ---
Progress Note: A&P Assessment and Plan (1) COVID: Code(s): U07.1 - COVID-19 Status: Acute Assessment and Plan: + COVID but she is at baseline, today having a good day on isolation (2) Occult blood in stools: Code(s): R19.5 - Other fecal abnormalities Status: Acute Assessment and Plan: she had both egd and colonoscopy just recently and unremarkable, now denies overt gib with low Hb but stable last couple of days in setting of new diagnosis of covid, I do not think that she warrants another EGD evaluation, instead I will set up outpatient small bowel capsule endoscopy in 6-8 weeks after she is fully recovered from COVID and other acute respiratory issues (3) Acute on chronic blood loss anemia: Code(s): D62 - Acute posthemorrhagic anemia Status: Acute Assessment and Plan: hb low but stable (4) LEMUS (dyspnea on exertion): Code(s): R06.00 - Dyspnea, unspecified Status: Acute Assessment and Plan: probably multifactorial, also from COVID (5) Acute and chronic respiratory failure: Code(s): J96.20 - Acute and chronic respiratory failure, unspecified whether with hypoxia or hypercapnia Status: Acute (6) COPD (chronic obstructive pulmonary disease): Code(s): J44.9 - Chronic obstructive pulmonary disease, unspecified Status: Acute Subjective Date/time seen: 03/16/21 14:23 Interval history: COVID came back positive, she has been on isolation all this time. Today she actually feels fine, good appetite and denies overt GIB Review of Systems Review of Systems: All systems reviewed & are unremarkable except as noted in HPI and below Exam Const: General: comfortable and no acute distress Other: Talking on the phone, no distress HENMT: General nose exam: no epistaxis Other: Thick neck,? Webbed neck? Eyes: EOM: EOMs intact bilaterally Neck: Neck: supple Resp: Auscultation: clear to auscultation bilaterally and diminished lung sounds Cardio: Rate: regular rate Rhythm: regular rhythm GI: Inspection: non-distended GI Palp: Yes Soft to palpation and No Guarding due to palpation present (GI) Auscultation: normal bowel sounds Skin: General skin exam: no rashes or lesions noted Neuro: Speech: normal speech Motor exam (neuro): Normal motor muscle tone present throughout Extrem: General: no edema and no pedal edema Psych: Mental Status: mental status grossly normal Objective Data Vital Signs Vital Signs: Vital Signs - 24 hr 03/15/21 16:00 03/15/21 20:00 03/16/21 00:00 Temperature 98.2 F 97.1 F L 97.3 F L Pulse Rate 57 L 60 56 L Respiratory Rate 16 18 18 Blood Pressure 106/72 102/56 L 116/67 Pulse Oximetry 95 96 96 03/16/21 04:00 03/16/21 08:00 03/16/21 12:00 Temperature 96.9 F L 97.7 F 98.1 F Pulse Rate 56 L 58 L 66 Respiratory Rate 18 16 16 Blood Pressure 131/75 127/55 L 124/74 Pulse Oximetry 93 94 92 03/16/21 13:08 Temperature Pulse Rate 71 Respiratory Rate Blood Pressure Pulse Oximetry Intake/Output Intake/Output: Intake & Output 03/13/21 03/14/21 03/15/21 03/16/21 23:59 23:59 23:59 23:59 Intake Total 300 3160 1610 990 Output Total 3175 700 Balance 300 -15 910 990 Meds/Results Medications: Active Medications Generic Name Dose Route Start Last Admin Trade Name Freq PRN Reason Stop Dose Admin Albuterol 5 mg 03/14/21 17:40 Albuterol Sulfate Neb 2.5 Mg/0.5 Ml Inh INHALATION Q6HRT PRN dyspnea Atorvastatin Calcium 80 mg 03/14/21 01:30 03/15/21 21:17 Atorvastatin 40 Mg Tablet PO 80 mg HS ALIE Administration Dexamethasone Sodium Phosphate 6 mg 03/16/21 09:00 03/16/21 13:08 Dexamethasone Sod Phos Inj 10 Mg/Ml 1 Ml Vial IV PUSH 03/25/21 09:01 6 mg DAILY ALIE Administration Dextrose 12.5 gm 03/14/21 01:17 Dextrose 50% 25 Gm/50 Ml Syringe IV PUSH PRN PRN Hypoglycemia Protocol Ferrous Sulfate 324 mg 03/16/21 17:00 [place]
[2021-03-16] MEDS: FERROUS SULFATE 324 MG TABLET PO (17:17)
[2021-03-16 17:30] LABS: Glucose Point of Care 145 mg/dl (65-105)
[2021-03-16] MEDS: ATORVASTATIN 40 MG TABLET 80 MG PO (20:14)
[2021-03-16 20:40] LABS: Glucose Point of Care 188 mg/dl (65-105)
[2021-03-17] VITALS (9 sets, daily range): BP systolic 103–128; BP diastolic 60–77; PULSE 53–76; RESP 17–18; TEMP 36.1–36.9; O2SAT 93–98
[2021-03-17 06:33] LABS: Basophils Percent Auto 0.2 % (0.2-1.2); Eosinophils Percent Auto 0.1 % (0-4.4); Hemoglobin 10.2 g/dL (12.0-15.0); Immature Granulocyte Absolute 0.08 K/mm3 (0.00-0.031); Lymphocytes Absolute Auto 0.55 K/mm3 (0.9-3.2); Lymphocytes Percent Auto 6.7 % (18.3-44.2); Mean Corpuscular HGB Conc 31.9 g/dl (32-36); Mean Corpuscular Hemoglobin 30.4 pg (26-34); Mean Corpuscular Volume 95.5 fl (80-100); Mean Platelet Volume 9.6 fl (7.4-10.4); Monocytes Absolute Auto 0.5 K/mm3 (0.1-0.6); Monocytes Percent Auto 5.7 % (2.6-8.5); Neutrophils Absolute Auto 7.1 K/mm3 (1.3-6.7); Neutrophils Percent Auto 86.3 % (45.5-73.1); Nucleated Red Blood Cells Perc 0.4 % (0.0-0.2); Platelet Count Result 260 k/mm3 (150-375); Red Blood Count 3.35 M/mm3 (4.2-5.4); Red Cell Distribution Width 16.1 % (11.5-14.5); White Blood Count 8.2 K/mm3 (4.5-10.0)
[2021-03-17 06:47] LABS: CRP < 0.5 mg/dL (<1.0)
[2021-03-17 07:11] LABS: D Dimer 2.15 ug/mL (<0.48)
[2021-03-17 08:10] LABS: Glucose Point of Care 126 mg/dl (65-105)
[2021-03-17] MEDS: hydroCHLOROthiazide 25 MG TABLET PO (08:46)
[2021-03-17] MEDS: FERROUS SULFATE 324 MG TABLET PO ×3 (08:46→17:15)
[2021-03-17] MEDS: METOPROLOL SUCCINATE EXT REL 50 MG TABCR PO (08:46)
[2021-03-17] MEDS: PANTOPRAZOLE SODIUM IV 40 MG VIAL IV PUSH ×2 (08:46→20:30)
[2021-03-17] MEDS: OMEGA 3 POLYUNSAT FATTY ACIDS 1 GM CAP 2 GM PO ×2 (08:46→17:15)
--- NOTE | 2021-03-17 10:42 | PM.IMPN ---
Progress Note: A&P Assessment and Plan (1) COVID: Code(s): U07.1 - COVID-19 Status: Acute (2) Acute and chronic respiratory failure: Code(s): J96.20 - Acute and chronic respiratory failure, unspecified whether with hypoxia or hypercapnia Status: Acute (3) COPD (chronic obstructive pulmonary disease): Code(s): J44.9 - Chronic obstructive pulmonary disease, unspecified Status: Acute (4) HTN (hypertension): Code(s): I10 - Essential (primary) hypertension Status: Acute Additional Plan 1. COVID pneumonia 2. Acute hypoxemic respiratory failure - Her chest CTA showed bilateral upper lobe ground-glass opacity and infiltrate - Initially required oxygen, now weaned off - Initially started on ceftriaxone azithromycin, her COVID test came back positive, dexamethasone 6 mg daily initiated 03/16 3. Anemia with concern for GI blood loss: - Recent EGD/colonoscopy was negative and planned for outpatient capsule endoscopy. - She does have a history of gastric ulcer and required 7 unit of transfusion during 1 of her hospitalization. - Continue to monitor H&H and transfuse PRBC if indicated. She has been transfused with 2 units of blood so far. - Her iron panel is suggestive of iron deficiency anemia. B12 level is normal. Iron supp started. 4. Bedbug bite: - Consulting managed care analyst to see what resources we can provide. Patient appears to have no where else to go and is trying to fumigate her home while also living in it 5. Elevated troponin: - Cardiology recommendations appreciated. - Echo suggested dynamic outflow tract gradient and which is suggestive of hypertrophic cardiomyopathy. She has been told in the past that she might be having a hole in her heart likely PFO. - Stress test but that can be done as an outpatient. COPD - Continue bronchodilators DVT prophylaxis: SCDs GI prophylaxis: Protonix Code status: Full code Disposition: Pending clinical course, likely home. Patient has bedbug infestation at home PT OT has been consulted. Subjective Date/time seen: 03/17/21 10:42 Feeling significantly better. Breathing on room air. Hemodynamically stable. No major issues last night. Review of Systems Review of Systems: All systems reviewed & are unremarkable except as noted in HPI and below Exam Narrative: Gen: Alert, NAD Abd: Soft, NT, ND Heart: RRR Lungs: CTAB Ext: No lower extremity edema Objective Data Vital Signs Vital Signs: Vital Signs - 24 hr 03/16/21 12:00 03/16/21 13:08 03/16/21 16:00 Temperature 98.1 F Pulse Rate 62 71 66 Respiratory Rate 16 Blood Pressure 124/74 Pulse Oximetry 92 03/16/21 17:00 03/16/21 20:00 03/16/21 23:50 Temperature 97.4 F L 98.0 F 98.0 F Pulse Rate 62 62 57 L Respiratory Rate 18 18 Blood Pressure 120/70 111/58 L 126/65 Pulse Oximetry 98 92 94 03/17/21 00:00 03/17/21 04:00 03/17/21 08:00 Temperature 98.4 F Pulse Rate 53 L 60 64 Respiratory Rate 17 Blood Pressure 123/77 Pulse Oximetry 97 03/17/21 08:46 Temperature Pulse Rate 64 Respiratory Rate Blood Pressure Pulse Oximetry Intake/Output Intake/Output: Intake & Output 03/14/21 03/15/21 03/16/21 03/17/21 23:59 23:59 23:59 23:59 Intake Total 3160 1610 2230 550 Output Total 3175 700 Balance -15 910 2230 550 Meds/Results Medications: Active Medications Generic Name Dose Route Start Last Admin Trade Name Freq PRN Reason Stop Dose Admin Albuterol 5 mg 03/14/21 17:40 Albuterol Sulfate Neb 2.5 Mg/0.5 Ml Inh INHALATION Q6HRT PRN dyspnea Atorvastatin Calcium 80 mg 03/14/21 01:30 03/16/21 20:14 Atorvastatin 40 Mg Tablet PO 80 mg HS ALIE Administration Dexamethasone Sodium Phosphate 6 mg 03/16/21 09:00 03/17/21 08:46 Dexamethasone Sod Phos Inj 10 Mg/Ml 1 Ml Vial IV PUSH 03/25/21 09:01 6 mg DAILY ALIE Administration Dextrose 12.5 gm 03/14/21 01:17 Dextrose 50% 25 Gm/50
[2021-03-17] MEDS: INSULIN ASPART (*BKC) 100 UNITS/ML SUB-Q ×2 (12:43→17:15)
[2021-03-17 12:48] LABS: Glucose Point of Care 294 mg/dl (65-105)
[2021-03-17 13:25] LABS: Ferritin 48 ng/mL (8-252)
[2021-03-17 16:58] LABS: Glucose Point of Care 240 mg/dl (65-105)
[2021-03-17] MEDS: ATORVASTATIN 40 MG TABLET 80 MG PO (20:30)
[2021-03-17 23:19] LABS: Glucose Point of Care 202 mg/dl (65-105)
[2021-03-18] VITALS: PULSE 52
[2021-03-18 04:00] VITALS: BP 112/63; PULSE 51; RESP 18; TEMP 36.1; O2SAT 99
[2021-03-18] MEDS: LEVOTHYROXINE SODIUM 25 MCG TABLET PO (05:40)
--- NOTE | 2021-03-18 07:16 | PM.IMPN ---
Progress Note: A&P Assessment and Plan (1) COVID: Code(s): U07.1 - COVID-19 Status: Acute Assessment and Plan: I will start her on dexamethasone 6 mg IV once a day. She was requiring oxygen supplementation at the time of presentation though she has been weaned down to room air now. He (2) Acute and chronic respiratory failure: Code(s): J96.20 - Acute and chronic respiratory failure, unspecified whether with hypoxia or hypercapnia Status: Acute Assessment and Plan: She was requiring oxygen supplementation at the time of presentation but now has been weaned down to room air. Oxygen supplementation only if oxygen saturation is less than 90% (3) COPD (chronic obstructive pulmonary disease): Code(s): J44.9 - Chronic obstructive pulmonary disease, unspecified Status: Acute Assessment and Plan: No wheezing heard on lung exam. Continue bronchodilators. (4) HTN (hypertension): Code(s): I10 - Essential (primary) hypertension Status: Acute Additional Plan 1. COVID pneumonia 2. Acute hypoxemic respiratory failure - Her chest CTA showed bilateral upper lobe ground-glass opacity and infiltrate - Initially required oxygen, now weaned off - Initially started on ceftriaxone azithromycin, her COVID test came back positive, dexamethasone 6 mg daily initiated 03/16 3. Anemia with concern for GI blood loss: - Recent EGD/colonoscopy was negative and planned for outpatient capsule endoscopy. - She does have a history of gastric ulcer and required 7 unit of transfusion during 1 of her hospitalization. - Continue to monitor H&H and transfuse PRBC if indicated. She has been transfused with 2 units of blood so far. - Her iron panel is suggestive of iron deficiency anemia. B12 level is normal. Iron supp started. 4. Bedbug bite: - Consulting child day care teacher to see what resources we can provide. Patient appears to have no where else to go and is trying to fumigate her home while also living in it 5. Elevated troponin: - Cardiology recommendations appreciated. - Echo suggested dynamic outflow tract gradient and which is suggestive of hypertrophic cardiomyopathy. She has been told in the past that she might be having a hole in her heart likely PFO. - Stress test but that can be done as an outpatient. COPD - Continue bronchodilators DVT prophylaxis: SCDs GI prophylaxis: Protonix Code status: Full code Disposition: Pending clinical course, likely home. Patient has bedbug infestation at home PT OT has been consulted. Subjective Date/time seen: 03/18/21 07:16 Review of Systems Review of Systems: All systems reviewed & are unremarkable except as noted in HPI and below Exam Narrative: Gen: Alert, NAD Abd: Soft, NT, ND Heart: RRR Lungs: CTAB Ext: No lower extremity edema Objective Data Vital Signs Vital Signs: Vital Signs - 24 hr 03/17/21 08:00 03/17/21 08:46 03/17/21 12:00 Temperature 36.5 C 36.7 C Pulse Rate 63 64 76 Respiratory Rate 18 18 Blood Pressure 128/67 126/69 Pulse Oximetry 96 98 03/17/21 13:45 03/17/21 16:00 03/17/21 20:00 Temperature 36.4 C 36.1 C L Pulse Rate 69 67 62 Respiratory Rate 18 18 Blood Pressure 126/72 103/60 Pulse Oximetry 96 93 03/17/21 23:57 03/18/21 00:00 03/18/21 04:00 Temperature 36.4 C L 36.1 C L Pulse Rate 54 L 52 L 51 L Respiratory Rate 18 18 Blood Pressure 114/68 112/63 Pulse Oximetry 98 99 Intake/Output Intake/Output: Intake & Output 03/15/21 03/16/21 03/17/21 03/18/21 23:59 23:59 23:59 23:59 Intake Total 1610 2230 1700 750 Output Total 700 Balance 910 2230 1700 750 Meds/Results Medications: Active Medications Generic Name Dose Route Start Last Admin Trade Name Freq PRN Reason Stop Dose Admin Albuterol 5 mg 03/14/21 17:40 Albuterol Sulfate Neb 2.5 Mg/0.5 Ml Inh INHALATION Q6HRT PRN dyspnea Atorvastatin Calcium 80 mg 03/14/21 01:30 03/17/21
[2021-03-18 07:21] LABS: Basophils Percent Auto 0.4 % (0.2-1.2); Eosinophils Absolute Auto 0.1 K/mm3 (0-0.3); Eosinophils Percent Auto 0.8 % (0-4.4); Hematocrit 33.5 % (37.0-47.0); Hemoglobin 10.5 g/dL (12.0-15.0); Immature Granulocyte Absolute 0.06 K/mm3 (0.00-0.031); Immature Granulocyte Percent A 0.5 % (0-0.5); Lymphocytes Absolute Auto 1.13 K/mm3 (0.9-3.2); Mean Corpuscular HGB Conc 31.3 g/dl (32-36); Mean Corpuscular Volume 95.7 fl (80-100); Mean Platelet Volume 9.5 fl (7.4-10.4); Monocytes Absolute Auto 0.7 K/mm3 (0.1-0.6); Monocytes Percent Auto 5.7 % (2.6-8.5); Neutrophils Absolute Auto 9.4 K/mm3 (1.3-6.7); Neutrophils Percent Auto 82.6 % (45.5-73.1); Platelet Count Result 301 k/mm3 (150-375); Red Cell Distribution Width 15.9 % (11.5-14.5); White Blood Count 11.3 K/mm3 (4.5-10.0)
[2021-03-18 07:30] VITALS: PULSE 59; O2SAT 100
[2021-03-18] MEDS: hydroCHLOROthiazide 25 MG TABLET PO (07:32)
[2021-03-18] MEDS: FERROUS SULFATE 324 MG TABLET PO ×2 (07:32→12:02)
[2021-03-18] MEDS: OMEGA 3 POLYUNSAT FATTY ACIDS 1 GM CAP 2 GM PO (07:32)
[2021-03-18 07:33] VITALS: PULSE 63
[2021-03-18] MEDS: METOPROLOL SUCCINATE EXT REL 50 MG TABCR PO (07:33)
[2021-03-18] MEDS: PANTOPRAZOLE SODIUM IV 40 MG VIAL IV PUSH (07:33)
[2021-03-18 07:34] LABS: Anion Gap 7 mmol/L (8-16); Blood Urea Nitrogen 18 mg/dL (7-17); Calcium 9.1 mg/dL (8.4-10.2); Carbon Dioxide 28 mmol/L (22-30); Chloride 99 mmol/L (98-107); Estimated CRCL calculation 42 ml/min; Estimated Glomerular Filt Rate 50; Glucose 130 mg/dL (65-110); Potassium 3.6 mmol/L (3.4-5.0); Sodium 134 mmol/L (137-145)
[2021-03-18 07:58] LABS: Glucose Point of Care 152 mg/dl (65-105)
[2021-03-18 08:00] VITALS: BP 118/60; PULSE 59; RESP 16; TEMP 35.9; O2SAT 100
[2021-03-18 12:00] VITALS: PULSE 58
--- NOTE | 2021-03-18 12:54 | PM.DS ---
DS: Admitting Diagnosis Admitting Diagnosis Anemia acute on chronic Probable GI bleed COPD Hypertension Diabetes mellitus Hyperlipidemia Community-acquired pneumonia Suspected COVID-19 infection Elevated troponin DS: Discharge Diagnosis Discharge Diagnosis (1) COVID: Code(s): U07.1 - COVID-19 Status: Acute Assessment and Plan: - Her chest CTA showed bilateral upper lobe ground-glass opacity and infiltrate - Initially required oxygen, now weaned off - Initially started on ceftriaxone azithromycin, her COVID test came back positive, dexamethasone 6 mg daily initiated 03/16 and antibiotics were stopped. She will be discharged home on 2 more days of steroid with prednisone. (2) Acute and chronic respiratory failure: Code(s): J96.20 - Acute and chronic respiratory failure, unspecified whether with hypoxia or hypercapnia Status: Acute Assessment and Plan: She was requiring oxygen supplementation at the time of presentation but now has been weaned down to room air. Oxygen supplementation only if oxygen saturation is less than 90% (3) COPD (chronic obstructive pulmonary disease): Code(s): J44.9 - Chronic obstructive pulmonary disease, unspecified Status: Acute Assessment and Plan: No wheezing heard on lung exam. Continue bronchodilators. (4) HTN (hypertension): Code(s): I10 - Essential (primary) hypertension Status: Acute Assessment and Plan: Continue to monitor (5) Elevated troponin: Code(s): R77.8 - Other specified abnormalities of plasma proteins Status: Acute Assessment and Plan: - Cardiology recommendations appreciated. - Echo suggested dynamic outflow tract gradient and which is suggestive of hypertrophic cardiomyopathy. She has been told in the past that she might be having a hole in her heart likely PFO. - Stress test but that can be done as an outpatient. (6) Acute on chronic blood loss anemia: Code(s): D62 - Acute posthemorrhagic anemia Status: Acute Assessment and Plan: - Recent EGD/colonoscopy was negative and planned for outpatient capsule endoscopy. - She does have a history of gastric ulcer and required 7 unit of transfusion during 1 of her hospitalization. - Continue to monitor H&H and transfuse PRBC if indicated. She has been transfused with 2 units of blood so far. - Her iron panel is suggestive of iron deficiency anemia. B12 level is normal. Iron supp started. (7) Acute upper GI bleed: Code(s): K92.2 - Gastrointestinal hemorrhage, unspecified Status: Acute Assessment and Plan: - Recent EGD/colonoscopy was negative and planned for outpatient capsule endoscopy. Head Grower was consulted who will repeat EGD prior to capsule endoscopy to fully evaluate for GI bleed. He does have a history of gastric ulcer and required 7 unit of transfusion during 1 of her hospitalization. -continue to monitor H&H and transfuse PRBC if indicated. She has been transfused with 2 units of blood so far during this admission. Her H&H in the last 3-4 days has been stable. No ongoing loss of blood. Gastroenterology service was seeing the patient while she was here in the hospital. The planning to do an endoscopy and if that is negative then she will need capsule endoscopy as an outpatient. Endoscopy was deferred is she was diagnosed to have COVID-19 infection. Now she will be set up as an outpatient with small-bowel capsule endoscopy in 6-8 weeks by her benchroom shop optician. Her iron panel is suggestive of iron deficiency anemia. B12 level is normal. Folate is pending. I will start her on iron supplementation. (8) Bedbug bite: Qualifiers: Encounter type: initial encounter Qualified Code(s): W57.XXXA - Bitten or stung by nonvenomous insect and other nonvenomous arthropods, initial encounter Code(s): W57.XXXA - Bitten or stung by nonvenomous insect and other nonvenomous art
[2021-03-19 13:15] LABS: Red Blood Cell Folate >1000 ng/mL RBC (>280)
== END 2021-03-18 13:40 | disposition home or self-care (01) | DRG 177 ==
LOC: ANHED 16:45 → ANHIMU 16:49 → ANH3MEDSUR 03-16 06:29 → ANHIMU 03-19 17:22
PROVIDERS: Emergency Medicine; Internal Medicine; Internal Medicine Nephrology; Student in an Organized Health Care Education/Training Program; Admitting Provider Internal Medicine; Emergency Provider Emergency Medicine; PCP Nurse Practitioner Family; Visit Provider Internal Medicine Critical Care Medicine
DX: U07.1 COVID-19 (principal); J96.21 Acute and chronic respiratory failure with hypoxia; J12.82 Pneumonia due to coronavirus disease 2019; J44.0 Chronic obstructive pulmonary disease with (acute) lower respiratory infection; D62 Acute posthemorrhagic anemia; K92.2 Gastrointestinal hemorrhage, unspecified; R77.8 Other specified abnormalities of plasma proteins; E11.9 Type 2 diabetes mellitus without complications; I10 Essential (primary) hypertension; E78.5 Hyperlipidemia, unspecified; R93.1 Abnormal findings on diagnostic imaging of heart and coronary circulation; W57.XXXA Bitten or stung by nonvenomous insect and other nonvenomous arthropods, initial encounter; Y92.009 Unspecified place in unspecified non-institutional (private) residence as the place of occurrence of the external cause; Z79.899 Other long term (current) drug therapy; Z86.73 Personal history of transient ischemic attack (TIA), and cerebral infarction without residual deficits; Z87.11 Personal history of peptic ulcer disease; Z87.891 Personal history of nicotine dependence; Z88.0 Allergy status to penicillin
CPT/HCPCS: 36415; 36430; 71045; 71275; 80048; 80053; 80076; 82607; 82728; 82746; 82747; 82948; 83540; 83550; 83605; 83735; 83880; 84466; 84484; 85025; 85027; 85046; 85380; 85610; 85730; 86140; 86850; 86900; 86901; 86920; 87040; 93005; 94640; 96361; 96365; 96366; 96374; 96375; 97161; 97165; 99284; 99285; A9270; C9113; C9803; G0378; J0456; J0696; J1100; J1815; J2930; J7030; P9016; Q9967; U0003; U0005

== ENCOUNTER 2021-03-24 10:25 | Inpatient (IN) | payer MEDICARE, MEDICAID, SELFPAY ==
[2021-03-24] VITALS (24 sets, daily range): BP systolic 82–116; BP diastolic 49–64; PULSE 78–104; RESP 15–34; TEMP 36.4–37.3; O2SAT 9–100; BMI 24.9
--- NOTE | ~2021-03-24 | XR_ITS ---
EXAMINATION: XR chest 1V portable DATE: 03/24/2021 10:56 INDICATION: Cough. COVID-19 positive. TECHNIQUE: A single frontal view of the chest was obtained. COMPARISON: Chest single view 03/13/2021, chest CT 03/13/2021 FINDINGS: A calcified left lung nodule is consistent with old granulomatous disease. No pleural effus ion or pneumothorax. The heart size is normal. Surgical clips overlie right chest. IMPRESSION: 1. No acute cardiopulmonary disease. Reviewed, dictated and finalized at location A.
--- NOTE | 2021-03-24 10:30 | ECG_ITS ---
Measurements Intervals [place] Rate: 98 P: 30 [place]: 173 QRS: 7 QRSD: 82 T: 71 QT: 398 QTc: 509 Interpretive Statements SINUS RHYTHM LEFT VENTRICULAR HYPERTROPHY AND ST-T CHANGE BORDERLINE ST ABNORMALITY- ANTEROLATERAL LEADS BASELINE ARTIFACT- I, III, AVR, AVL BORDERLINE ECG Electronically Signed On 03-24-2021 10:54:13 CDT by Ehsan Sierra D.O.
--- NOTE | 2021-03-24 10:45 | PC.NURSE ---
Pt to ED via EMS with complaints of generalized weakness. Pt reports she was recently admitted to the hospital for low SPO2 and GI bleed. States she tested positive for COVID during her admission. Pt unsure of date she tested positive. She reports she has been feeling weak ever since being discharged home. Pt is very poor historian. She is unsure of medical history or medications. Pt states she has been non-compliant with all prescribed meds for some time. Denies abd pain, nausea, or vomiting. Hypotensive on arrival.
[2021-03-24] MEDS: SODIUM CHLORIDE 0.9% IV 1,000 ML 999 ML IV CONT ×2 (10:52→12:04)
--- NOTE | 2021-03-24 11:10 | ED.GENADULT ---
HPI - General Adult General Chief complaint: Weakness Stated complaint: WEAKNESS Source: RN notes reviewed History of Present Illness HPI narrative: Patient presents to emergency department from home via EMS for dizziness. Patient states that she was diagnosed with COVID-19 on 03/13/2021. States for the last 3 days she has been having increased dizziness when she stands up attempts to walk states she is had no fever chills chest pain nausea vomiting or diarrhea she denies any bloody stools. States she not been taking her medications over the past several days not been eating and drinking as well states she does feel intermittently short of breath Related Data Home Medications Medication Instructions Recorded Confirmed Stiolto Respimat 2 inh INHALATION DAILY 01/16/21 03/24/21 atorvastatin 80 mg PO HS 01/16/21 03/24/21 metformin 1,000 mg PO BID 01/16/21 03/24/21 oxybutynin chloride 5 mg PO DAILY 01/16/21 03/24/21 metoprolol succinate 50 mg PO DAILY 03/03/21 03/24/21 omega-3 acid ethyl esters 2 cap PO BID 03/03/21 03/24/21 pantoprazole 40 mg PO DAILY 03/03/21 03/24/21 hydrochlorothiazide 25 mg PO DAILY 03/13/21 03/24/21 levothyroxine 25 mcg PO DAILY 03/13/21 03/24/21 Allergies Allergy/AdvReac Type Severity Reaction Status Date / Time Penicillins Allergy Mild Unknown Verified 03/24/21 10:59 Review of Systems Review of Systems: Gen.: Denies fevers or chills Eyes: Denies eye pain or visual change ENT: Denies congestion Respiratory: Reports intermittent shortness of breath CV: Denies chest pain or palpitations GI: Denies abdominal pain nausea, emesis or diarrhea Musculoskeletal: Denies back pain or muscle pain Neuro: Reports dizziness and weakness Skin: Denies rash Except as documented, all other systems reviewed and negative [facility] Past Medical History Medical History Abnormal echocardiogram Echocardiogram on 03/03/2021 showed hyperdynamic left ventricular systolic function, estimated greater than 70%, moderately enlarged left atrial chamber, and a systolic velocity of 5.68 m/sec and the LV outflow tract with a configuration suggestive of dynamic LVOT obstruction. Following with [facility] cardiology group here at [place]. Anemia With history of blood transfusion. Arthritis Chronic obstructive pulmonary disease COVID-19 (03/13/21) Depression Gastric ulcer High cholesterol History of stroke Hyperlipidemia Hypertension Memory loss Nicotine dependence Obstructive sleep apnea Throat cancer Status post radiation and chemotherapy. Type 2 diabetes mellitus Surgical History Surgical History (Updated 03/24/21 @ 15:41 by Norma Medina PA-C) History of arthroscopy of right shoulder History of tonsillectomy Family History Family History Father Cancer Other Unknown family medical history Social History Social History Social History: Surrogate decision maker: Jose Valenciaberta, friend. Code status: Full code. Smoking packs per day: 1 Smoking cigarettes per day: 20.0 Years smoked: 5 Smoking pack-years: 5.00 Smoking status: Former smoker Tobacco type: cigarettes Second hand tobacco smoke exposure: Yes Alcohol intake: never Substance use: never Additional living arrangements comments: Lives alone in [place]. Additional occupation/education comments: Retired. Exam Narrative: APPEARANCE: No acute distress, nontoxic, resting in bed EYES: EOMI HEENT: Normocephalic, atraumatic, OMM RESPIRATORY: No respiratory distress Clear to auscultation bilaterally with no rhonchi wheezing or rales. CARDIOVASCULAR: Regular rate and rhythm without murmurs rubs or gallops. ABDOMINAL: Soft, nontender, nondistended, no rebound or guarding MUSCULOSKELETAl: Moves all extremities. No clubbing, cyanosis or edema. NEURO: Awake and a
--- NOTE | 2021-03-24 11:11 | PC.NURSE ---
Pt is difficult stick. Still attempting to collect labs at this time.
--- NOTE | 2021-03-24 11:23 | PC.NURSE ---
automotive glass installer at bedside attempting lab draw.
[2021-03-24 11:37] LABS: Add Urine Microscopic? YES; Appearance Urine Clear (Clear); Bilirubin Urine Negative (Negative); Blood Urine Negative (Negative); Color Urine Yellow (Yellow); Glucose Urine UA Negative (Negative); Ketones Urine Trace mg/dL (Negative); Leukocyte Esterase Ur Negative LEU/UL (Negative); Nitrate Urine Negative (Negative); Protein Urine Negative (Negative); Specific Grav Ur 1.021 (1.001-1.035); Urobilinogen Urine Negative mg/dL (<2.0)
[2021-03-24 11:47] LABS: Basophils Absolute Auto 0.1 K/mm3 (0.0-0.1); Basophils Percent Auto 0.6 % (0.2-1.2); Eosinophils Percent Auto 0.2 % (0-4.4); Immature Granulocyte Absolute 0.19 K/mm3 (0.00-0.031); Immature Granulocyte Percent A 1.1 % (0-0.5); Lymphocytes Absolute Auto 0.61 K/mm3 (0.9-3.2); Lymphocytes Percent Auto 3.6 % (18.3-44.2); Mean Corpuscular HGB Conc 29.9 g/dl (32-36); Mean Corpuscular Hemoglobin 30.6 pg (26-34); Mean Corpuscular Volume 102.4 fl (80-100); Mean Platelet Volume 9.9 fl (7.4-10.4); Monocytes Absolute Auto 1.1 K/mm3 (0.1-0.6); Monocytes Percent Auto 6.1 % (2.6-8.5); Neutrophils Absolute Auto 15.1 K/mm3 (1.3-6.7); Neutrophils Percent Auto 88.4 % (45.5-73.1); Nucleated Red Blood Cells Perc 0.2 % (0.0-0.2); Platelet Count Result 203 k/mm3 (150-375); Red Cell Distribution Width 16.5 % (11.5-14.5); White Blood Count 17.1 K/mm3 (4.5-10.0)
[2021-03-24 12:02] LABS: Lactic Acid Reflex 3.3 mmol/L (0.7-2.1)
[2021-03-24 12:03] LABS: Alanine Aminotransferase 10 U/L (4-35); Albumin Level 3.2 g/dL (3.5-5.1); Alkaline Phosphatase 58 U/L (38-126); Anion Gap 8 mmol/L (8-16); Aspartate Amino Transferase 16 U/L (14-36); Bilirubin,Total 0.5 mg/dL (0.2-1.3); Blood Urea Nitrogen 39 mg/dL (7-17); Calcium 7.7 mg/dL (8.4-10.2); Carbon Dioxide 19 mmol/L (22-30); Chloride 111 mmol/L (98-107); Estimated CRCL calculation 44 ml/min; Estimated Glomerular Filt Rate > 60; Glucose 169 mg/dL (65-110); Potassium 4.2 mmol/L (3.4-5.0); Sodium 138 mmol/L (137-145)
--- NOTE | 2021-03-24 12:04 | PC.NURSE ---
phlebotomy at bedside to attempt lab draw.
[2021-03-24 12:06] LABS: Hematocrit 17.4 % (37.0-47.0); Hemoglobin 5.2 g/dL (12.0-15.0)
[2021-03-24 12:07] LABS: INR 1.1; Prothrombin Time 13.7 Seconds (11.1-14.7)
[2021-03-24 12:46] LABS: Partial Thromboplastin Time < 20.0 SECONDS (22.3-36.8)
--- NOTE | 2021-03-24 12:58 | WPDCNINT ---
Assessment and Plan Assessment and plan (1) GI bleed: Code(s): K92.2 - Gastrointestinal hemorrhage, unspecified Status: Acute Assessment and Plan: Likely upper GI versus small bowel blood loss. Although patient denies seeing any blood in her stool she had a positive guaiac on last admission and was admitted with anemia and required transfusion. Her last EGD showed gastritis 2 units packed red cells transfusion is ordered NPO Q.6 hours hemoglobin checks IV PPI q.12 hours GI consult (2) Anemia: Code(s): D64.9 - Anemia, unspecified Status: Acute Assessment and Plan: As above-mentioned secondary to GI blood loss but may have baseline multifactorial anemia of iron deficiency +/- anemia of chronic disease Her ferritin level was low normal on last checks. She also had a low retic count. her iron level was low Check peripheral blood smear Her recent B12 and folic acid level were normal Will check TSH level May need IV Venofer (3) Hypotension: Code(s): I95.9 - Hypotension, unspecified Status: Acute Assessment and Plan: Secondary to blood loss Patient received 1 L of saline bolus and is going to get another 1 L 2 units of packed red cells ordered May need vasopressors Hold blood pressure medication Monitor lactic acid level (4) COVID: Code(s): U07.1 - COVID-19 Status: Acute Assessment and Plan: She was tested positive for COVID-19 on last admission on 03/13 She she finished a course of dexamethasone Her chest x-ray today does not show any acute infiltrates She is saturating 100% on room air during my exam (5) COPD (chronic obstructive pulmonary disease): Code(s): J44.9 - Chronic obstructive pulmonary disease, unspecified Status: Acute Assessment and Plan: P.r.n. bronchodilators (6) Lactic acidosis: Code(s): E87.2 - Acidosis Status: Acute Assessment and Plan: Her lactate is elevated at 3.2 Likely secondary to anemia, hypovolemia and hypotension IV fluids and PRBC transfusion Cultures have been done WBC elevated but patient was recently on steroids. Patient is afebrile Chest x-ray and UA are unremarkable Hold antibiotics at this time (7) Weakness: Code(s): R53.1 - Weakness Status: Acute Assessment and Plan: She appears to be generally deconditioned she has been admitted in the hospital recently, was on steroids, has anemia and baseline COPD PT OT evaluation for balance once hemodynamics are stabilized Additional Plan DVT prophylaxis -SCDs Stress ulcer prophylaxis -IV PPI Nutrition -NPO Code Status - Full Code Personnel Recruiter Consult Note Consult date: 03/24/21 Time Seen: 13:30 HPI: Carey Turpin is a 65 year old female with PMH of COPD, DM, HTN admitted on 03/13 SOB Her chest CTA showed bilateral upper lobe ground-glass opacity and infiltrate. Tested positive for COVID-19. She she Initially required oxygen, now weaned off. She was treated with dexamethasone 6 mg daily initiated 03/16 and antibiotics were stopped. She had elevated troponin and echo showed hypertrophic cardiomyopathy and stress test was planned for outpatient. She also was found to be anemic with positive guaiac stool. She had recent EGD and colonoscopy which were negative. Gastroenterology service was consulted while she was here in the hospital. Endoscopy was deferred is she was diagnosed to have COVID-19 infection. Plan was to set up as an outpatient with small-bowel capsule endoscopy as outpatient capsule endoscopy. She was transfused with packed red cells 2 units prior to discharge. She return to ER today with chief complaint of weakness. Her workup showed hemoglobin of 5.2. Blood pressure was low. She was given 1 L saline bolus and PRBC ordered. Patient states that she has been feeling weak and tired since her discharge from the hospital. She gets short of breath on exertion while walking in the home and also feels [place]
[2021-03-24] MEDS: PANTOPRAZOLE SODIUM IV 40 MG VIAL IV PUSH ×2 (13:15→20:20)
--- NOTE | 2021-03-24 14:00 | PC.NURSE ---
Attempted to call report to ICU; RN unavailable at this time.
[2021-03-24 14:42] LABS: Reflex Lactic Acid Yes or No Add Lactic
--- NOTE | 2021-03-24 14:57 | ADMGEN ---
This patient, Carey Turpin, was admitted to Intensive Care Unit-12. Patient/family oriented to hospital policies and general routines including ID bracelet, bed and alarms, visiting hours, pain management, procedures, bathroom and other care routines, personal items, smoking policy, room service/diet, and visiting hours. Information on how to activate the Rapid Response Team has been discussed. Patient/Family are encouraged to report perceived risks to care and to ask questions if they do not understand what they are told or what they should do.
--- NOTE | 2021-03-24 15:00 | PM.IMHP ---
H&P: HPI History of Present Illness Date/Time: 03/24/21 15:00 Chief Complaint: Weakness. Narrative: This is a 65-year-old female with hypertension, dyslipidemia, hypothyroidism, diabetes, COPD, GERD with history of gastric ulcers, and anemia with history of blood transfusions who presented to the emergency department earlier today via EMS from home for evaluation of weakness. She is known to the hospitalist service with a recent admission on 03/14/2021 with acute respiratory failure related to COVID pneumonia. She was also found to have acute on chronic anemia and was transfused 2 units of packed red blood cells. Due to her COVID 19 infection it was decided to do her EGD as an outpatient with plans for capsule endoscopy as well. She was discharged home on 03/18/2021 with a prescription for ferrous sulfate as well as prednisone for 4 days. It should be noted that the patient had evidence of bed bugs when she was admitted to the hospital during her last stay and she was given resources including numbers for [facility] to help coordinate treatment of her house for that. In any regard, the patient tells me that she has been extremely weak since returning home and has not been able to take her medications as she is reportedly unable to ambulate without much difficulties due to weakness and lightheadedness. She was evaluated by PT during her previous stay who did not feel skilled therapy services were indicated as she appeared to be functioning at her baseline. In any event, she was much more weak this morning and called 911. On arrival to the emergency department today her blood pressure was 85/57 and has been hovering around the same since that time. Her hemoglobin and hematocrit were 5.2 and 17.4% respectively and she is being admitted in this setting. She has not had any bowel movements since returning home and denies epistaxis, hematemesis, and hematuria. She has not had fever, chills, or sweats. She denies chest pain and shortness of breath. No cough. No sinus congestion, rhinorrhea, otalgia, or odynophagia. She denies vomiting and dysuria. She denies falls. Review of Systems Review of Systems: Twelve systems were reviewed with pertinent positives and negatives as per HPI. Except as documented, all other systems were reviewed and are negative. REPLACED BY [facility] Past Medical History Medical History Abnormal echocardiogram Echocardiogram on 03/03/2021 showed hyperdynamic left ventricular systolic function, estimated greater than 70%, moderately enlarged left atrial chamber, and a systolic velocity of 5.68 m/sec and the LV outflow tract with a configuration suggestive of dynamic LVOT obstruction. Following with [facility] cardiology group here at [place]. Anemia With history of blood transfusion. Arthritis Chronic obstructive pulmonary disease COVID-19 (03/13/21) Depression Gastric ulcer High cholesterol History of stroke Hyperlipidemia Hypertension Memory loss Nicotine dependence Obstructive sleep apnea Throat cancer Status post radiation and chemotherapy. Type 2 diabetes mellitus Surgical History Surgical History (Updated 03/24/21 @ 20:16 by Norma Medina PA-C) History of arthroscopy of right shoulder History of percutaneous endoscopic gastrostomy History of tonsillectomy Family History Family History Father Cancer Other Unknown family medical history Social History Social History (Updated 03/24/21 @ 20:14 by Norma Medina PA-C) Social History: Surrogate decision maker: Jose Corrales, friend. Code status: Full code. Smoking packs per day: 1 Smoking cigarettes per day: 20.0 Years smoked: 5 Smoking pack-years: 5.00 Smoking status: Former smoker Tobacco type: cigarettes Second hand tobacco smoke exposure: Yes Alcohol intake: never Substance use: never Additional living arrangements comments:
[2021-03-24 15:24] LABS: Immature Reticulocyte Fraction 39.4 % (3.0-15.9); Reticulocyte Percent 9.21 % (0.7-4.3); Reticulocytes Absolute 0.16 B/L (32.2-175.7)
[2021-03-24 15:37] LABS: Lactic Acid 1.4 mmol/L (0.7-2.1)
[2021-03-24 16:04] LABS: Hematocrit 17.8 % (37.0-47.0); Hemoglobin 5.2 g/dL (12.0-15.0)
[2021-03-24] MEDS: SODIUM CHLORIDE 0.9% IV 250 ML 30 ML IV CONT (16:20)
[2021-03-24] MEDS: SODIUM CHLORIDE 0.9% IV 1,000 ML 80 ML IV CONT (16:33)
[2021-03-24 18:18] LABS: Glucose Point of Care 125 mg/dl (65-105)
[2021-03-24] MEDS: ATORVASTATIN 40 MG TABLET 80 MG PO (20:18)
[2021-03-24 21:51] LABS: Hematocrit 23.1 % (37.0-47.0); Hemoglobin 7.2 g/dL (12.0-15.0)
[2021-03-24 22:22] LABS: Lactic Acid Reflex 1.6 mmol/L (0.7-2.1)
[2021-03-25] VITALS (23 sets, daily range): BP systolic 84–132; BP diastolic 50–78; PULSE 65–87; RESP 12–28; TEMP 36.8–37.2; O2SAT 91–100
[2021-03-25 00:45] LABS: Glucose Point of Care 104 mg/dl (65-105)
[2021-03-25] MEDS: SODIUM CHLORIDE 0.9% IV 250 ML 30 ML IV CONT (01:44)
[2021-03-25] MEDS: SODIUM CHLORIDE 0.9% IV 1,000 ML 80 ML IV CONT (03:19)
[2021-03-25 04:50] LABS: Basophils Absolute Auto 0.1 K/mm3 (0.0-0.1); Basophils Percent Auto 0.7 % (0.2-1.2); Eosinophils Absolute Auto 0.2 K/mm3 (0-0.3); Eosinophils Percent Auto 1.3 % (0-4.4); Hematocrit 24.8 % (37.0-47.0); Hemoglobin 8.1 g/dL (12.0-15.0); Immature Granulocyte Percent A 2.2 % (0-0.5); Lymphocytes Absolute Auto 1.11 K/mm3 (0.9-3.2); Lymphocytes Percent Auto 8.1 % (18.3-44.2); Mean Corpuscular HGB Conc 32.7 g/dl (32-36); Mean Corpuscular Hemoglobin 29.7 pg (26-34); Mean Corpuscular Volume 90.8 fl (80-100); Mean Platelet Volume 9.5 fl (7.4-10.4); Neutrophils Percent Auto 80.7 % (45.5-73.1); Nucleated Red Blood Cells Absolute Auto 0.1 K/mm3 (0.0-0.012); Nucleated Red Blood Cells Perc 0.8 % (0.0-0.2); Platelet Count Result 132 k/mm3 (150-375); Red Blood Count 2.73 M/mm3 (4.2-5.4); Red Cell Distribution Width 17.4 % (11.5-14.5); White Blood Count 13.6 K/mm3 (4.5-10.0)
[2021-03-25 05:37] LABS: Alanine Aminotransferase 6 U/L (4-35); Albumin Level 2.3 g/dL (3.5-5.1); Alkaline Phosphatase 41 U/L (38-126); Anion Gap 3 mmol/L (8-16); Aspartate Amino Transferase 11 U/L (14-36); Bilirubin,Total 1.2 mg/dL (0.2-1.3); Blood Urea Nitrogen 34 mg/dL (7-17); Calcium 7.3 mg/dL (8.4-10.2); Carbon Dioxide 20 mmol/L (22-30); Chloride 111 mmol/L (98-107); Estimated CRCL calculation 49 ml/min; Estimated Glomerular Filt Rate > 60; Glucose 116 mg/dL (65-110); Potassium 3.9 mmol/L (3.4-5.0); Sodium 134 mmol/L (137-145)
[2021-03-25] MEDS: LEVOTHYROXINE SODIUM 25 MCG TABLET PO (06:56)
--- NOTE | 2021-03-25 08:59 | WPDINTPN ---
Progress Note: A&P Assessment and Plan (1) GI bleed: Code(s): K92.2 - Gastrointestinal hemorrhage, unspecified Status: Acute Assessment and Plan: Likely upper GI versus small bowel blood loss. Although patient denies seeing any blood in her stool she had a positive guaiac on last admission and was admitted with anemia and required transfusion. Her last EGD showed gastritis Three units packed red cells transfused She is NPO Continue hemoglobin monitoring IV PPI q.12 hours GI consult is pending (2) Anemia: Code(s): D64.9 - Anemia, unspecified Status: Acute Assessment and Plan: As above-mentioned secondary to GI blood loss but may have baseline multifactorial anemia of iron deficiency +/- anemia of chronic disease Her ferritin level was low normal on last checks. She also had a low retic count. her iron level was low Pending peripheral blood smear Her recent B12 and folic acid level were normal Bending TSH level She is on p.o. iron but May need IV Venofer (3) Hypotension: Code(s): I95.9 - Hypotension, unspecified Status: Acute Assessment and Plan: Secondary to blood loss and blood pressure meds Patient received 2 L L of saline bolus on presentation. She also has received packed red cells Her lactic acid level is cleared and she is asymptomatic Map has been in mid 60s when she is sleeping and MAP was 75 when I went to see her and she was awake Continue to hold blood pressure medication Check cortisol level as patient has been on and off steroids for her COVID and COPD Add my to drain (4) COVID: Code(s): U07.1 - COVID-19 Status: Acute Assessment and Plan: She was tested positive for COVID-19 on last admission on 03/13 She she finished a course of dexamethasone Her chest x-ray today does not show any acute infiltrates She is saturating 100% on room air during my exam (5) COPD (chronic obstructive pulmonary disease): Code(s): J44.9 - Chronic obstructive pulmonary disease, unspecified Status: Acute Assessment and Plan: P.r.n. bronchodilators (6) Lactic acidosis: Code(s): E87.2 - Acidosis Status: Acute Assessment and Plan: Her lactate is elevated at 3.2 Likely secondary to anemia, hypovolemia and hypotension Resolved with IV fluids and PRBC transfusion Last 2 lactate level have been normal Cultures have been done WBC elevated but patient was recently on steroids and level is coming down Patient is afebrile Chest x-ray and UA are unremarkable Continue to Hold antibiotics at this time (7) Weakness: Code(s): R53.1 - Weakness Status: Acute Assessment and Plan: She appears to be generally deconditioned she has been admitted in the hospital recently, was on steroids, has anemia and baseline COPD PT OT evaluation for balance once hemodynamics are stabilized Additional Plan DVT prophylaxis -SCDs Stress ulcer prophylaxis -IV PPI Nutrition -NPO Code Status - Full Code Subjective Date/time seen: 03/25/21 08:59 No major events overnight. Patient has had a soft blood pressure but her lactate has normalized. She states she feels fine and denies any new complaints. Slept well and had no bowel movements. No dizziness lightheadedness chest pain or shortness of breath with. No fever. Review system was positive for dyspnea on exertion. She is aware that she has a bedbug problem in her apartment. Review system for all other systems negative Review of Systems Review of Systems: All systems reviewed & are unremarkable except as noted in HPI and below (HPI) Exam Narrative: General: Pt is alert awake and in NAD. Old frail female Lungs/Chest: Trachea central Clear BS B/L, No crackles or wheezing. Cardiac: RRR. Normal S1 S2. No murmurs Circulation: Pedal pulses are intact and symmetrical. Systolic murmur 3/6 present Abdomen: Normal bowel sounds.. Soft. NT. ND. Extremities: No clubbing, cyanos
[2021-03-25] MEDS: SODIUM BICARBONATE 8.4% 100 MEQ in DEXTROSE 5% 1,000 ML 1,000 ML 75 MEQ IV CONT (09:22)
[2021-03-25] MEDS: FERROUS SULFATE DRIED 142 MG TABCR PO (09:23)
[2021-03-25] MEDS: MIDODRINE HCL 2.5 MG TABLET 5 MG PO ×2 (09:23→17:50)
[2021-03-25] MEDS: PANTOPRAZOLE SODIUM IV 40 MG VIAL IV PUSH ×2 (09:23→20:15)
--- NOTE | 2021-03-25 10:36 | PCOTNOTE ---
Attempted OT evaluation, patient going for GI procedure/testing, will follow and attempt OT evaluation after procedure/testing.
--- NOTE | 2021-03-25 11:00 | WPDGICN ---
Assessment and Plan Assessment and plan (1) GI bleed: Code(s): K92.2 - Gastrointestinal hemorrhage, unspecified Status: Acute Assessment and Plan: admitted with hypotension and worsening anemia, will assess again with urgent EGD to see if actively bleeding (last time without major findings)- if negative then will proceed with SB capsule endoscopy continue with protonix and icu care (2) Acute on chronic anemia: Code(s): D64.9 - Anemia, unspecified Status: Acute Assessment and Plan: keep hb>7, transfusion as needed (3) Melena: Code(s): K92.1 - Melena Status: Acute (4) COVID-19: Code(s): U07.1 - COVID-19 Status: Acute Assessment and Plan: recently diagnosed, she is doing better and treated last hospitalization (5) Generalized weakness: Code(s): R53.1 - Weakness Status: Acute (6) Hypotension: Code(s): I95.9 - Hypotension, unspecified Status: Acute Assessment and Plan: with symptomatic anemia from acute bleeding better with medical treatment in icu (7) Type 2 diabetes mellitus: Code(s): E11.9 - Type 2 diabetes mellitus without complications Status: Acute (8) Chronic obstructive pulmonary disease: Code(s): J44.9 - Chronic obstructive pulmonary disease, unspecified Status: Acute (9) Nicotine dependence: Code(s): F17.200 - Nicotine dependence, unspecified, uncomplicated Status: Acute GI Consult Note Consult date/time: 03/25/21 11:00 Reason for consult: GIB, acute on chronic blood loss anemia HPI: Carey Turpin is a 65 year old female with history of COPD, former smoker, remote history of laryngeal cancer for which had temporary G-tube known to me from recent hospitalization for anemia, had EGD and colonoscopy unremarkable for bleeding and readmitted again for recurrent anemia but also diagnosed with COVID-19 infection, reviewed CTA that showed bilateral upper lobe ground-glass opacity and infiltrate, treated initially with oxygen, steroids and antibiotics now discontinued. She also was found to have FOBT positive and decision to treat medically with outpatient small bowel capsule endoscopy. She is back again with worsening shortness of breath, generalized weakness and dark stools, found to have anemia again with hb 5.2 and hypotension, treated with fluids, blood transfusion and admitted to icu. Review of Systems Constitutional: Constitutional: Reports fatigue and Reports weakness Eyes: Eyes: Reports no additional eye complaints ENT: Reports Normal hearing present Cardiovascular: Cardiovascular: Reports lightheadedness Respiratory: Respiratory: Denies wheezing Gastrointestinal: Gastrointestinal: Reports melena, Denies nausea and Denies vomiting Genitourinary: Genitourinary: Denies hematuria Musculoskeletal: Musculoskeletal: Reports no additional musculoskeletal complaints Integumentary/Breasts: Skin/Breast: Denies dry skin Neurologic: Reports system reviewed and no additional complaints, except as documented Psychiatric: Psychiatric: Reports no additional psychiatric complaints [facility] Past Medical History Medical History Abnormal echocardiogram Echocardiogram on 03/03/2021 showed hyperdynamic left ventricular systolic function, estimated greater than 70%, moderately enlarged left atrial chamber, and a systolic velocity of 5.68 m/sec and the LV outflow tract with a configuration suggestive of dynamic LVOT obstruction. Following with [facility] cardiology group here at [place]. Anemia With history of blood transfusion. Arthritis Chronic obstructive pulmonary disease COVID-19 (03/13/21) Depression Gastric ulcer High cholesterol History of stroke Hyperlipidemia Hypertension Memory loss Nicotine dependence Obstructive sleep apnea Throat cancer Status post radiation and chemotherapy. Type 2 diabetes mellitus
--- NOTE | 2021-03-25 11:54 | WPDANESEPPF ---
Anes - Initial Pre Proc Eval Procedure: Operation Date: 03/25/21 12:00 Proposed Procedures p Esophagogastroduodenoscopy - Umer Zhu MD Date/Time: 03/25/21 11:54 Surgeon: Martinez Justice MD Pre Op Diagnosis: symptomatic anemia,covid-19 Patient Data Age: 65 Gender: F Height: 1.6 m Weight: 57.5 kg Last Vital Signs Temp 98.6 F 03/25/21 04:00 Pulse 76 03/25/21 10:00 Resp 24 H 03/25/21 06:00 BP 85/55 L 03/25/21 06:00 Pulse Ox 95 03/25/21 06:00 Allergies Allergy/AdvReac Type Severity Reaction Status Date / Time Penicillins Allergy Mild Unknown Verified 03/24/21 10:59 Home Medications Medication Instructions Recorded Confirmed Type Stiolto Respimat 2 inh INHALATION DAILY 01/16/21 03/24/21 History atorvastatin 80 mg PO HS 01/16/21 03/24/21 History hydroxyzine pamoate [Vistaril] 25 mg PO TID PRN #30 cap 01/16/21 03/24/21 Rx metformin 1,000 mg PO BID 01/16/21 03/24/21 History oxybutynin chloride 5 mg PO DAILY 01/16/21 03/24/21 History metoprolol succinate 50 mg PO DAILY 03/03/21 03/24/21 History omega-3 acid ethyl esters 2 cap PO BID 03/03/21 03/24/21 History pantoprazole 40 mg PO DAILY 03/03/21 03/24/21 History hydrochlorothiazide 25 mg PO DAILY 03/13/21 03/24/21 History levothyroxine 25 mcg PO DAILY 03/13/21 03/24/21 History ferrous sulfate 140 mg PO DAILY #30 tablet 03/18/21 03/24/21 Rx prednisone 40 mg PO DAILY #4 tablet 03/18/21 03/24/21 Rx Laboratory Tests 03/24/21 03/24/21 03/24/21 11:40 11:40 11:40 WBC 17.1 K/mm3 H K/mm3 (4.5-10.0) RBC 1.70 M/mm3 L M/mm3 (4.2-5.4) Hgb 5.2 g/dL L* D g/dL (12.0-15.0) Hct 17.4 % L* % (37.0-47.0) MCV 102.4 fl H D fl (80-100) MCH 30.6 pg pg (26-34) MCHC 29.9 g/dl L g/dl (32-36) RDW 16.5 % H % (11.5-14.5) Plt Count 203 k/mm3 k/mm3 (150-375) MPV 9.9 fl fl (7.4-10.4) Immature Gran % (Auto) 1.1 % H % (0-0.5) Neut % (Auto) 88.4 % H % (45.5-73.1) Lymph % (Auto) 3.6 % L % (18.3-44.2) [place]gs % (Auto) 6.1 % % (2.6-8.5) Eos % (Auto) 0.2 % % (0-4.4) Baso % (Auto) 0.6 % % (0.2-1.2) Lymph # (Auto) 0.61 K/mm3 L K/mm3 (0.9-3.2) [place]gs # (Auto) 1.1 K/mm3 H K/mm3 (0.1-0.6) Eos # (Auto) 0.0 K/mm3 K/mm3 (0-0.3) Baso # (Auto) 0.1 K/mm3 K/mm3 (0.0-0.1) Abs Immat Gran (auto) 0.19 K/mm3 H K/mm3 (0.00-0.031) Absolute Neuts (auto) 15.1 K/mm3 H K/mm3 (1.3-6.7) Absolute Nucleated RBC 0.0 K/mm3 K/mm3 (0.0-0.012) Nucleated RBC % 0.2 % % (0.0-0.2) Absolute Retic Percent Retic Immature Retic Fraction Retic Hgb Content PT 13.7 Seconds Seconds (11.1-14.7) INR 1.1 APTT < 20.0 SECONDS L SECONDS (22.3-36.8) Sodium 138 mmol/L mmol/L (137-145) Potassium 4.2 mmol/L mmol/L (3.4-5.0) Chloride 111 mmol/L H mmol/L (98-107) Carbon Dioxide 19 mmol/L L mmol/L (22-30) Anion Gap 8 mmol/L mmol/L (8-16) BUN 39 mg/dL H D mg/dL (7-17) Creatinine 0.90 mg/dL mg/dL (0.7-1.0) Estim Creat Clear Calc 44 ml/min ml/min Estimated GFR > 60 (59 - ) Glucose 169 mg/dL H mg/dL (65-110) POC Capillary Glucose Lactic Acid Calcium 7.7 mg/dL L mg/dL (8.4-10.2) Magnesium Ferritin Total Bilirubin 0.5 mg/dL mg/dL (0.2-1.3) AST 16 U/L U/L (14-36) ALT 10 U/L U/L (4-35) Alkaline Phosphatase 58 U/L U/L (38-126) Total Protein 6.0 g/dL L g/dL (6.3-8.2) Albumin 3.2 g/dL L g/dL (3.5-5.1) TSH Blood Type Rho(D) Type Antibody Screen Crossmatch 0
[2021-03-25 12:03] LABS: Glucose Point of Care 128 mg/dl (65-105)
[2021-03-25] MEDS: LACTATED RINGERS 1,000 ML 150 ML IV CONT (12:07)
[2021-03-25 15:19] LABS: Glucose Point of Care 128 mg/dl (65-105)
[2021-03-25 15:19] LABS: Glucose Point of Care 112 mg/dl (65-105)
[2021-03-25 16:55] LABS: Hematocrit 24.7 % (37.0-47.0); Hemoglobin 8.1 g/dL (12.0-15.0); Mean Corpuscular HGB Conc 32.8 g/dl (32-36); Mean Corpuscular Hemoglobin 30.3 pg (26-34); Mean Corpuscular Volume 92.5 fl (80-100); Platelet Count Result 142 k/mm3 (150-375); Red Blood Count 2.67 M/mm3 (4.2-5.4); Red Cell Distribution Width 18.6 % (11.5-14.5); White Blood Count 11.6 K/mm3 (4.5-10.0)
[2021-03-25 17:38] LABS: Glucose Point of Care 146 mg/dl (65-105)
[2021-03-25] MEDS: ATORVASTATIN 40 MG TABLET 80 MG PO (20:15)
[2021-03-25 23:03] LABS: Glucose Point of Care 129 mg/dl (65-105)
[2021-03-26] VITALS (8 sets, daily range): BP systolic 93–100; BP diastolic 52–77; PULSE 66–109; RESP 18–28; TEMP 36.6–37.1; O2SAT 96–100
[2021-03-26] MEDS: SODIUM BICARBONATE 8.4% 100 MEQ in DEXTROSE 5% 1,000 ML 1,000 ML 75 MEQ IV CONT ×2 (01:51→17:16)
[2021-03-26 05:15] LABS: Hematocrit 24.5 % (37.0-47.0); Hemoglobin 7.7 g/dL (12.0-15.0); Mean Corpuscular HGB Conc 31.4 g/dl (32-36); Mean Corpuscular Hemoglobin 29.2 pg (26-34); Mean Corpuscular Volume 92.8 fl (80-100); Mean Platelet Volume 10.1 fl (7.4-10.4); Platelet Count Result 141 k/mm3 (150-375); Red Blood Count 2.64 M/mm3 (4.2-5.4); Red Cell Distribution Width 18.8 % (11.5-14.5); White Blood Count 12.8 K/mm3 (4.5-10.0)
[2021-03-26 05:34] LABS: Alanine Aminotransferase 8 U/L (4-35); Albumin Level 2.9 g/dL (3.5-5.1); Alkaline Phosphatase 53 U/L (38-126); Anion Gap 6 mmol/L (8-16); Aspartate Amino Transferase 15 U/L (14-36); Bilirubin,Total 0.7 mg/dL (0.2-1.3); Blood Urea Nitrogen 21 mg/dL (7-17); Calcium 7.7 mg/dL (8.4-10.2); Carbon Dioxide 24 mmol/L (22-30); Chloride 108 mmol/L (98-107); Estimated CRCL calculation 49 ml/min; Estimated Glomerular Filt Rate > 60; Glucose 108 mg/dL (65-110); Magnesium 2.1 mg/dL (1.6-2.3); Potassium 3.7 mmol/L (3.4-5.0); Sodium 138 mmol/L (137-145)
[2021-03-26] MEDS: LEVOTHYROXINE SODIUM 25 MCG TABLET PO (05:53)
[2021-03-26] MEDS: FERROUS SULFATE DRIED 142 MG TABCR PO (09:28)
[2021-03-26] MEDS: MIDODRINE HCL 2.5 MG TABLET 5 MG PO ×3 (09:28→17:14)
[2021-03-26] MEDS: PANTOPRAZOLE SODIUM IV 40 MG VIAL IV PUSH ×2 (09:29→20:08)
[2021-03-26 12:32] LABS: Glucose Point of Care 114 mg/dl (65-105)
--- NOTE | 2021-03-26 14:47 | WPDGIPROGNO ---
Progress Note: A&P Assessment and Plan (1) Dieulafoy lesion of duodenum: Code(s): K31.82 - Dieulafoy lesion (hemorrhagic) of stomach and duodenum Status: Acute Assessment and Plan: achieved hemostasis yesterday, hb low but stable after blood transfusion continue with protonix tolerating diet she can be moved to floor (2) GI bleed: Code(s): K92.2 - Gastrointestinal hemorrhage, unspecified Status: Acute Assessment and Plan: treated endoscopically, due to Dieulafoy lesion in duodenum (3) Acute on chronic anemia: Code(s): D64.9 - Anemia, unspecified Status: Acute Assessment and Plan: no more bleeding, continue to monitor iron supplement (4) COVID-19: Code(s): U07.1 - COVID-19 Status: Acute Assessment and Plan: recent hospitalization with covid-19 (5) Type 2 diabetes mellitus: Code(s): E11.9 - Type 2 diabetes mellitus without complications Status: Acute (6) COPD (chronic obstructive pulmonary disease): Code(s): J44.9 - Chronic obstructive pulmonary disease, unspecified Status: Acute Subjective Date/time seen: 03/26/21 14:47 Interval history: she is feeling better. EGD yesterday found active bleeding from Dieulafoy lesion in duodenum, treated with APC and clip. Review of Systems Review of Systems: All systems reviewed & are unremarkable except as noted in HPI and below Exam Const: General: comfortable and no acute distress HENMT: General nose exam: Normal nares present Eyes: Sclera: sclerae normal Neck: Neck: supple Resp: Auscultation: clear to auscultation bilaterally Cardio: Rate: regular rate GI: Inspection: non-distended GI Palp: Yes Soft to palpation and No Tenderness to palpation present (GI) Auscultation: normal bowel sounds Skin: General skin exam: no rashes or lesions noted Neuro: Speech: normal speech Extrem: General: normal to inspection Psych: Mental Status: mental status grossly normal Objective Data Vital Signs Vital Signs: Vital Signs - 24 hr 03/25/21 16:00 03/25/21 18:00 03/25/21 20:00 Temperature 98.5 F Pulse Rate 81 76 80 Respiratory Rate 18 21 H Blood Pressure 95/59 L Pulse Oximetry 100 98 03/25/21 23:19 03/26/21 00:00 03/26/21 03:39 Temperature 98.8 F 98.3 F Pulse Rate 76 69 72 Respiratory Rate 24 H 20 Blood Pressure 110/54 L 93/65 L Pulse Oximetry 96 98 03/26/21 04:00 03/26/21 05:04 03/26/21 08:00 Temperature 98.8 F Pulse Rate 74 109 H 74 Respiratory Rate 28 H Blood Pressure 95/62 L Pulse Oximetry 99 03/26/21 12:00 Temperature 98.7 F Pulse Rate 80 Respiratory Rate 24 H Blood Pressure 98/77 L Pulse Oximetry 100 Intake/Output Intake/Output: Intake & Output 03/23/21 03/24/21 03/25/21 03/26/21 23:59 23:59 23:59 23:59 Intake Total 3719 3189 1765 Output Total 450 3200 400 Balance 3269 -11 1365 Meds/Results Medications: Active Medications Generic Name Dose Route Start Last Admin Trade Name Freq PRN Reason Stop Dose Admin Albuterol 2.5 mg 03/24/21 14:19 Albuterol Sulfate Neb 2.5 Mg/0.5 Ml Inh INHALATION Q6HRT PRN Shortness Of Breath Atorvastatin Calcium 80 mg 03/24/21 21:00 03/25/21 20:15 Atorvastatin 40 Mg Tablet PO 80 mg HS ALIE Administration Dextrose 12.5 gm 03/24/21 20:42 Dextrose 50% 25 Gm/50 Ml Syringe IV PUSH PRN PRN Hypoglycemia Protocol Ferrous Sulfate 142 mg 03/25/21 09:00 03/26/21 09:28 Ferrous Sulfate Dried 142 Mg Tabcr PO 142 mg DAILY ALIE Administration Glucagon 1 mg 03/24/21 20:42 Glucagon For Inj 1 Mg Vial IM PRN PRN Hypoglycemia Protocol Glucose 15 gm 03/24/21 20:42 Glucose Oral Gel 15 Gm Of Glucse In 37.5 Gm Tube PO PRN PRN Hypoglycemia Protocol Hydroxyzine Pamoate 25 mg 03/24/21 15:52 Hydroxyzine Pamoate 25 Mg Capsule PO TID PRN itching Dextrose 1,000 mls @ 100 mls
--- NOTE | 2021-03-26 15:26 | PC.NURSE ---
This patient, Carey Turpin, was received from ICU on 03/26/21 at 1526. Patient/family oriented to unit policies and routines
--- NOTE | 2021-03-26 15:27 | PC.NURSE ---
PATIENT TRANSFERED TO ROOM 249. REPORT GIVEN TO ROMA DALLAS. ALL QUESTIONS ANSWERED.
--- NOTE | 2021-03-26 17:40 | PM.IMPN ---
Progress Note: A&P Assessment and Plan (1) GI bleed: Code(s): K92.2 - Gastrointestinal hemorrhage, unspecified Status: Acute Assessment and Plan: Likely upper GI versus small bowel blood loss. On her last EGD on 03/25/2021 a single Dieulafoy lesion of D2 segment of the duodenum was identified. Three units packed red cells transfused She is NPO Continue hemoglobin monitoring IV PPI q.12 hours GI consult continue PPI and transfer to floor. (2) Anemia: Code(s): D64.9 - Anemia, unspecified Status: Acute Assessment and Plan: As above-mentioned secondary to GI blood loss but may have baseline multifactorial anemia of iron deficiency +/- anemia of chronic disease Her ferritin level was low normal on last checks. She also had a low retic count. her iron level was low Pending peripheral blood smear Her recent B12 and folic acid level were normal Bending TSH level She is on p.o. iron but May need IV Venofer (3) Hypotension: Code(s): I95.9 - Hypotension, unspecified Status: Acute Assessment and Plan: Secondary to blood loss and blood pressure meds Patient received 2 L L of saline bolus on presentation. She also has received packed red cells Her lactic acid level is cleared and she is asymptomatic Map has been in mid 60s when she is sleeping and MAP was 75 when I went to see her and she was awake Continue to hold blood pressure medication Check cortisol level as patient has been on and off steroids for her COVID and COPD Add my to drain (4) COVID: Code(s): U07.1 - COVID-19 Status: Acute Assessment and Plan: She was tested positive for COVID-19 on last admission on 03/13 She she finished a course of dexamethasone Her chest x-ray today does not show any acute infiltrates She is saturating 100% on room air during my exam (5) COPD (chronic obstructive pulmonary disease): Code(s): J44.9 - Chronic obstructive pulmonary disease, unspecified Status: Acute Assessment and Plan: P.r.n. bronchodilators (6) Lactic acidosis: Code(s): E87.2 - Acidosis Status: Acute Assessment and Plan: Her lactate is elevated at 3.2 Likely secondary to anemia, hypovolemia and hypotension Resolved with IV fluids and PRBC transfusion Last 2 lactate level have been within normal range. Cultures have been done; the preliminary reports are negative at this time. WBC elevated but patient was recently on steroids and level is coming down Patient is afebrile Chest x-ray and UA are unremarkable There is no indication for antibiotics at this time. We will continue to hold. (7) Weakness: Code(s): R53.1 - Weakness Status: Acute Assessment and Plan: She appears to be generally deconditioned she has been admitted in the hospital recently, was on steroids, has anemia and baseline COPD PT OT evaluation for generalized weakness, deconditioning and assessment for fall risk. Additional Plan DVT prophylaxis -SCDs Stress ulcer prophylaxis -IV PPI Nutrition -tolerating diabetic consistent diet. Code Status - Full Code Subjective Date/time seen: 03/26/21 17:40 This is a 65-year-old female with hypertension, dyslipidemia, hypothyroidism, diabetes, COPD, GERD with history of gastric ulcers, and anemia with history of blood transfusions who presented to the emergency department on 03/24 via EMS from home for evaluation of weakness. She is known to the hospitalist service with a recent admission on 03/14/2021 with acute respiratory failure related to COVID pneumonia. She was also found to have acute on chronic anemia and was transfused 2 units of packed red blood cells. Due to her COVID 19 infection it was decided to do her EGD as an outpatient with plans for capsule endoscopy as well. She was discharged home on 03/18/2021 with a prescription for ferrous sulfate as well as prednisone for 4 days. It should be noted that the patient had evidence of bed bugs when s
[2021-03-26] MEDS: ATORVASTATIN 40 MG TABLET 80 MG PO (20:07)
[2021-03-26 20:40] LABS: Glucose Point of Care 102 mg/dl (65-105)
[2021-03-26 23:15] LABS: Mean Corpuscular HGB Conc 31.8 g/dl (32-36); Mean Corpuscular Hemoglobin 29.6 pg (26-34); Mean Platelet Volume 10.1 fl (7.4-10.4); Platelet Count Result 119 k/mm3 (150-375); Red Blood Count 2.13 M/mm3 (4.2-5.4); Red Cell Distribution Width 18.6 % (11.5-14.5); White Blood Count 8.3 K/mm3 (4.5-10.0)
[2021-03-26 23:33] LABS: Hematocrit 19.8 % (37.0-47.0); Hemoglobin 6.3 g/dL (12.0-15.0)
[2021-03-27] VITALS (16 sets, daily range): BP systolic 89–162; BP diastolic 48–95; PULSE 72–100; RESP 16–20; TEMP 36–37.1; O2SAT 79–100
[2021-03-27] MEDS: SODIUM CHLORIDE 0.9% IV 250 ML 30 ML IV CONT (00:45)
[2021-03-27 01:37] LABS: Glucose Point of Care 103 mg/dl (65-105)
[2021-03-27] MEDS: LEVOTHYROXINE SODIUM 25 MCG TABLET PO (05:28)
[2021-03-27 06:50] LABS: Hematocrit 24.2 % (37.0-47.0); Hemoglobin 7.6 g/dL (12.0-15.0); Mean Corpuscular HGB Conc 31.4 g/dl (32-36); Mean Corpuscular Hemoglobin 29.3 pg (26-34); Mean Corpuscular Volume 93.4 fl (80-100); Mean Platelet Volume 9.9 fl (7.4-10.4); Platelet Count Result 119 k/mm3 (150-375); Red Blood Count 2.59 M/mm3 (4.2-5.4); Red Cell Distribution Width 18.2 % (11.5-14.5); White Blood Count 7.3 K/mm3 (4.5-10.0)
[2021-03-27 07:21] LABS: Alanine Aminotransferase 7 U/L (4-35); Albumin Level 2.5 g/dL (3.5-5.1); Alkaline Phosphatase 58 U/L (38-126); Anion Gap 2 mmol/L (8-16); Aspartate Amino Transferase 13 U/L (14-36); Bilirubin,Total 0.8 mg/dL (0.2-1.3); Blood Urea Nitrogen 13 mg/dL (7-17); Calcium 7.6 mg/dL (8.4-10.2); Carbon Dioxide 28 mmol/L (22-30); Chloride 108 mmol/L (98-107); Estimated CRCL calculation 68 ml/min; Estimated Glomerular Filt Rate > 60; Glucose 103 mg/dL (65-110); Magnesium 2.1 mg/dL (1.6-2.3); Potassium 3.5 mmol/L (3.4-5.0); Sodium 138 mmol/L (137-145)
[2021-03-27 07:58] LABS: Glucose Point of Care 103 mg/dl (65-105)
[2021-03-27] MEDS: SODIUM CHLORIDE 0.9% IV 500 ML IV CONT (08:11)
[2021-03-27] MEDS: FERROUS SULFATE DRIED 142 MG TABCR PO (08:12)
[2021-03-27] MEDS: MIDODRINE HCL 2.5 MG TABLET 5 MG PO ×3 (08:12→17:35)
[2021-03-27] MEDS: PANTOPRAZOLE SODIUM IV 40 MG VIAL IV PUSH (08:13)
[2021-03-27] MEDS: IRON SUCROSE COMPLEX 100 MG in SODIUM CHLORIDE 0.9% IV 50 ML 220 MG IVPB (09:25)
[2021-03-27] MEDS: SODIUM BICARBONATE 8.4% 100 MEQ in DEXTROSE 5% 1,000 ML 1,000 ML 75 MEQ IV CONT (10:06)
--- NOTE | 2021-03-27 10:13 | WPDGIPROGNO ---
Subjective Date/time seen: 03/27/21 10:13 The patient is feeling better. Did have some dark stools this morning. No nausea, vomiting and hematemesis. Tolerating diet. Feeling much better. General: very pleasant patient in no acute distress. HEENT: Head was normocephalic sclerae is clear mouth without masses neck was supple. Heart: Rate rhythm regular without S3 or S4.Significant systolic murmur apex and entire precordium. Lungs: CTA. Abdomen: Soft with no guarding or rigidity. Bowel sounds were active. Neurologic: Cranial nerves 2 through 12 intact. No focal defects. No clonus. Musculoskeletal system: Revealed no joint tenderness or swelling no muscle atrophy. Extremities: Reveal no significant edema. Skin: Warm and dry with normal turgor. Mental status: intact. Patient is alert and oriented. Impression: GI bleeding secondary to Dieulafoy's lesion Second portion duodenum. Status post APC ablation and hemostatic clipping. Anemia secondary to above. Thrombocytopenia possibly secondary to bleeding. Past medical history: COPD. COVID-19. Depression. HLD. HTN. CVA. Diabetes mellitus. TODD. Pro cancer. Tobacco abuse. Recommendation: Saline lock IV. Continue Protonix. Recheck laboratory studies. Out of bed. Review of Systems Review of Systems: All systems reviewed & are unremarkable except as noted in HPI and below Objective Data Vital Signs Vital Signs: Vital Signs - 24 hr 03/26/21 12:00 03/26/21 16:00 03/26/21 20:00 Temperature 37.1 C 36.6 C 36.6 C Pulse Rate 80 66 66 Respiratory Rate 24 H 18 18 Blood Pressure 98/77 L 100/52 L 100/52 L Pulse Oximetry 100 96 96 03/27/21 00:00 03/27/21 01:15 03/27/21 01:35 Temperature 36.4 C 36.4 C 36.6 C Pulse Rate 72 78 80 Respiratory Rate 20 20 20 Blood Pressure 98/52 L 98/55 L 89/49 L Pulse Oximetry 100 100 100 03/27/21 02:34 03/27/21 03:30 03/27/21 04:00 Temperature 37.0 C 37.1 C 36.0 C L Pulse Rate 100 76 79 Respiratory Rate 20 18 18 Blood Pressure 90/51 L 90/51 L 162/95 H Pulse Oximetry 90 100 100 03/27/21 04:30 03/27/21 05:42 03/27/21 10:04 Temperature 36.6 C 37.1 C 36.6 C Pulse Rate 80 99 82 Respiratory Rate 18 18 16 Blood Pressure 96/53 L 92/48 L 91/52 L Pulse Oximetry 100 79 L 100 Intake/Output Intake/Output: Intake & Output 03/24/21 03/25/21 03/26/21 03/27/21 23:59 23:59 23:59 23:59 Intake Total 3719 3189 2560 1976 Output Total 450 3200 400 Balance 3269 -11 2160 1976 Meds/Results Medications: Active Medications Generic Name Dose Route Start Last Admin Trade Name Freq PRN Reason Stop Dose Admin Albuterol 2.5 mg 03/24/21 14:19 Albuterol Sulfate Neb 2.5 Mg/0.5 Ml Inh INHALATION Q6HRT PRN Shortness Of Breath Atorvastatin Calcium 80 mg 03/24/21 21:00 03/26/21 20:07 Atorvastatin 40 Mg Tablet PO 80 mg HS ALIE Administration Dextrose 12.5 gm 03/24/21 20:42 Dextrose 50% 25 Gm/50 Ml Syringe IV PUSH PRN PRN Hypoglycemia Protocol Ferrous Sulfate 142 mg 03/25/21 09:00 03/27/21 08:12 Ferrous Sulfate Dried 142 Mg Tabcr PO 142 mg DAILY ALIE Administration Glucagon 1 mg 03/24/21 20:42 Glucagon For Inj 1 Mg Vial IM PRN PRN Hypoglycemia Protocol Glucose 15 gm 03/24/21 20:42 Glucose Oral Gel 15 Gm Of Glucse In 37.5 Gm Tube PO PRN PRN Hypoglycemia Protocol Hydroxyzine Pamoate 25 mg 03/24/21 15:52 Hydroxyzine Pamoate 25 Mg Capsule PO TID PRN itching Dextrose 1,000 mls @ 100 mls/hr 03/24/21 20:42 Dextrose 5% 1,000 Ml IVPB PRN PRN Hypoglycemia Protocol Sodium Bicarbonate 100 meq/ 1,100 mls @ 75 mls/hr 03/25/21 08:25 03/27/21 10:06 Dextrose IV CONT 75 mls/hr .[id number] ALIE Administration Iron Sucrose 100 mg/ Sodium 55 mls @ 220 mls/hr 03/27/21 09:00 03/27/21 09:25 Chloride IVPB 220 mls/hr QAM ALIE Administration Insulin Aspart 0 un
[2021-03-27 11:46] LABS: Glucose Point of Care 107 mg/dl (65-105)
--- NOTE | 2021-03-27 13:23 | PM.IMPN ---
Progress Note: A&P Assessment and Plan (1) GI bleed: Code(s): K92.2 - Gastrointestinal hemorrhage, unspecified Status: Acute Assessment and Plan: Likely upper GI versus small bowel blood loss. On her last EGD on 03/25/2021 a single Dieulafoy lesion of D2 segment of the duodenum was identified. Three units packed red cells transfused , initially. She is NPO Continue hemoglobin monitoring IV Protonix b.i.d. GI on consult, appreciate recommendations (2) Anemia: Code(s): D64.9 - Anemia, unspecified Status: Acute Assessment and Plan: As above-mentioned secondary to GI blood loss but may have baseline multifactorial anemia of iron deficiency +/- anemia of chronic disease Her ferritin level was low normal on last checks. She also had a low retic count. her iron level was low Pending peripheral blood smear Her recent B12 and folic acid level were normal Bending TSH level continue oral iron supplementation will start IV iron today hemoglobin today is 7.6, will continue to trend tomorrow. (3) Hypotension: Code(s): I95.9 - Hypotension, unspecified Status: Acute Assessment and Plan: Secondary to blood loss and blood pressure meds Patient received 2 L L of saline bolus on presentation. She also has received packed red cells Her lactic acid level is cleared and she is asymptomatic Map has been in mid 60s when she is sleeping and MAP was 75 when I went to see her and she was awake Continue to hold blood pressure medication Check cortisol level as patient has been on and off steroids for her COVID and COPD fluid resuscitation as necessary (4) COVID: Code(s): U07.1 - COVID-19 Status: Acute Assessment and Plan: She was tested positive for COVID-19 on last admission on 03/13 She she finished a course of dexamethasone Her chest x-ray today does not show any acute infiltrates She is saturating 100% on room air during my exam (5) COPD (chronic obstructive pulmonary disease): Code(s): J44.9 - Chronic obstructive pulmonary disease, unspecified Status: Acute Assessment and Plan: P.r.n. bronchodilators (6) Lactic acidosis: Code(s): E87.2 - Acidosis Status: Acute Assessment and Plan: resolved (7) Weakness: Code(s): R53.1 - Weakness Status: Acute Assessment and Plan: She appears to be generally deconditioned she has been admitted in the hospital recently, was on steroids, has anemia and baseline COPD PT OT evaluation for generalized weakness, deconditioning and assessment for fall risk. Subjective Date/time seen: 03/27/21 13:24 No acute medical complaints. Patient resting comfortably in bed. Has not noted any overt bleeding, including blood in stool, urine, or coughing up or vomiting blood. Review of Systems Review of Systems: All systems reviewed & are unremarkable except as noted in HPI and below Exam Narrative: Genial, able to converse normally. Const: General: no acute distress Neck: Neck: no JVD Resp: Effort & Inspection: normal respiratory effort Auscultation: clear to auscultation bilaterally Cardio: Rate: regular rate Rhythm: regular rhythm GI: GI Palp: Yes Soft to palpation and No Tenderness to palpation present (GI) Objective Data Vital Signs Vital Signs: Vital Signs - 24 hr 03/26/21 16:00 03/26/21 20:00 03/27/21 00:00 Temperature 97.9 F 97.9 F 97.6 F Pulse Rate 66 66 72 Respiratory Rate 18 18 20 Blood Pressure 100/52 L 100/52 L 98/52 L Pulse Oximetry 96 96 100 03/27/21 01:15 03/27/21 01:35 03/27/21 02:34 Temperature 97.6 F 97.9 F 98.6 F Pulse Rate 78 80 100 Respiratory Rate 20 20 20 Blood Pressure 98/55 L 89/49 L 90/51 L Pulse Oximetry 100 100 90 03/27/21 03:30 03/27/21 04:00 03/27/21 04:30 Temperature 98.7 F 96.8 F L 97.8 F Pulse Rate 76 79 80 Respiratory Rate 18 18 18 Blood Pressure 90/51 L 162/95 H 96/53 L Pulse Oximetry 100 100 100
[2021-03-27 14:01] LABS: Cholesterol 89 mg/dL (0-200); HDL Direct 19 mg/dL; Triglycerides 160 mg/dL (<150)
[2021-03-27 14:11] LABS: LDL Cholesterol Direct 40 mg/dL
[2021-03-27 15:47] LABS: Phosphorus 3.7 mg/dL (2.5-4.5)
[2021-03-27 16:29] LABS: Hematocrit 26.5 % (37.0-47.0); Hemoglobin 8.4 g/dL (12.0-15.0); Mean Corpuscular HGB Conc 31.7 g/dl (32-36); Mean Corpuscular Hemoglobin 29.6 pg (26-34); Mean Corpuscular Volume 93.3 fl (80-100); Platelet Count Result 126 k/mm3 (150-375); Red Blood Count 2.84 M/mm3 (4.2-5.4); White Blood Count 7.6 K/mm3 (4.5-10.0)
[2021-03-27 16:50] LABS: Glucose Point of Care 111 mg/dl (65-105)
[2021-03-27 17:24] LABS: Free T4 Free Thyroxine 0.96 ng/mL (0.78-2.19)
[2021-03-27] MEDS: ATORVASTATIN 40 MG TABLET 80 MG PO (20:42)
[2021-03-27] MEDS: PANTOPRAZOLE 40 MG TABLET PO (20:42)
[2021-03-28] VITALS (11 sets, daily range): BP systolic 91–116; BP diastolic 51–61; PULSE 68–88; RESP 16–18; TEMP 36.2–36.7; O2SAT 95–99
[2021-03-28 00:02] LABS: Glucose Point of Care 118 mg/dl (65-105)
[2021-03-28 06:11] LABS: Basophils Absolute Auto 0.1 K/mm3 (0.0-0.1); Basophils Percent Auto 0.6 % (0.2-1.2); Eosinophils Absolute Auto 0.3 K/mm3 (0-0.3); Eosinophils Percent Auto 3.6 % (0-4.4); Hematocrit 25.2 % (37.0-47.0); Hemoglobin 7.7 g/dL (12.0-15.0); Immature Granulocyte Absolute 0.03 K/mm3 (0.00-0.031); Immature Granulocyte Percent A 0.4 % (0-0.5); Lymphocytes Percent Auto 7.3 % (18.3-44.2); Mean Corpuscular HGB Conc 30.6 g/dl (32-36); Mean Corpuscular Hemoglobin 29.1 pg (26-34); Mean Corpuscular Volume 95.1 fl (80-100); Mean Platelet Volume 10.2 fl (7.4-10.4); Monocytes Absolute Auto 0.6 K/mm3 (0.1-0.6); Monocytes Percent Auto 6.9 % (2.6-8.5); Neutrophils Absolute Auto 6.7 K/mm3 (1.3-6.7); Neutrophils Percent Auto 81.2 % (45.5-73.1); Platelet Count Result 115 k/mm3 (150-375); Red Blood Count 2.65 M/mm3 (4.2-5.4); White Blood Count 8.2 K/mm3 (4.5-10.0)
[2021-03-28] MEDS: LEVOTHYROXINE SODIUM 25 MCG TABLET PO (06:13)
[2021-03-28 06:25] LABS: Alanine Aminotransferase 8 U/L (4-35); Albumin Level 2.6 g/dL (3.5-5.1); Alkaline Phosphatase 62 U/L (38-126); Anion Gap 4 mmol/L (8-16); Aspartate Amino Transferase 14 U/L (14-36); Bilirubin,Total 0.6 mg/dL (0.2-1.3); Blood Urea Nitrogen 9 mg/dL (7-17); Calcium 7.9 mg/dL (8.4-10.2); Carbon Dioxide 28 mmol/L (22-30); Chloride 108 mmol/L (98-107); Estimated CRCL calculation 40 ml/min; Estimated Glomerular Filt Rate 55; Glucose 109 mg/dL (65-110); Magnesium 2.1 mg/dL (1.6-2.3); Phosphorus 3.8 mg/dL (2.5-4.5); Potassium 3.5 mmol/L (3.4-5.0); Sodium 140 mmol/L (137-145)
[2021-03-28] MEDS: SODIUM BICARBONATE 8.4% 100 MEQ in DEXTROSE 5% 1,000 ML 1,000 ML 75 MEQ IV CONT (08:01)
[2021-03-28] MEDS: PANTOPRAZOLE 40 MG TABLET PO ×2 (08:03→20:30)
[2021-03-28] MEDS: FERROUS SULFATE DRIED 142 MG TABCR PO (08:03)
[2021-03-28] MEDS: MIDODRINE HCL 2.5 MG TABLET 5 MG PO ×3 (08:03→17:26)
[2021-03-28] MEDS: IRON SUCROSE COMPLEX 100 MG in SODIUM CHLORIDE 0.9% IV 50 ML 220 MG IVPB (08:36)
[2021-03-28 09:47] LABS: Glucose Point of Care 110 mg/dl (65-105)
--- NOTE | 2021-03-28 11:28 | WPDGIPROGNO ---
Progress Note: A&P Assessment and Plan (1) Dieulafoy lesion of duodenum: Code(s): K31.82 - Dieulafoy lesion (hemorrhagic) of stomach and duodenum <Shelby Salas APRN - Last Filed: 03/28/21 11:35> Status: Acute <Shelby Salas APRN - Last Filed: 03/28/21 11:35> Assessment and Plan: Impression: 1. GI bleeding secondary to Dieulafoy's lesion Second portion duodenum. Status post APC ablation and hemostatic clipping. Hgb drop to 7.7 this AM, which could be dilutional? No active melena at this time 2. Anemia secondary to above. 3. Thrombocytopenia possibly secondary to bleeding. COPD. COVID-19. Depression. HLD. HTN. CVA. Diabetes mellitus. TODD. Pro cancer. Tobacco abuse. Recommendation: Saline lock IV. Continue Protonix. Monitor H&H-Transfuse PRN Will Keep NPO for possible repeat EGD in AM with Dr. Villatoro if H&H drops further Replace Iron <Shelby Salas APRN - Last Filed: 03/28/21 11:35> Subjective Date/time seen: 03/28/21 11:28 Tolerating PO intake. Denies abdominal pain, nausea or vomiting. Last BM this AM and was brown. Denies CP or dizziness. <Shelby Salas APRN - Last Filed: 03/28/21 11:35> Review of Systems Review of Systems: All systems reviewed & are unremarkable except as noted in HPI and below <Shelby Salas APRN - Last Filed: 03/28/21 11:35> Gastrointestinal: Gastrointestinal: Reports as per HPI <Shelby Salas APRN - Last Filed: 03/28/21 11:35> Exam Const: General: cooperative, healthy appearing, comfortable, no acute distress and awake <Shelby Salas APRN - Last Filed: 03/28/21 11:35> Orientation/consciousness: patient oriented x3 <Shelby Salas APRN - Last Filed: 03/28/21 11:35> Resp: Effort & Inspection: normal respiratory effort <Shelby Salas APRN - Last Filed: 03/28/21 11:35> Auscultation: diminished lung sounds <Shelby Perazaradha SKEIN BANDER - Last Filed: 03/28/21 11:35> Cardio: Rate: regular rate <Shelby Perazaradha SKEIN BANDER - Last Filed: 03/28/21 11:35> Rhythm: regular rhythm <Shelby Perazaradha SKEIN BANDER - Last Filed: 03/28/21 11:35> Heart sounds: S1 normal heart sound present, S2 normal heart sound present and Murmur heart sound present <Shelby Perazaradha SKEIN BANDER - Last Filed: 03/28/21 11:35> GI: Inspection: normal to inspection <Shelby GranadosNayeli Salas SKEIN BANDER - Last Filed: 03/28/21 11:35> GI Palp: No abdominal tenderness, Yes Soft to palpation and No Hepatosplenomegaly present <Shelby GranadosNayeli Josue, SKEIN BANDER - Last Filed: 03/28/21 11:35> Auscultation: normal bowel sounds <Shelbyfariba Salas APRN - Last Filed: 03/28/21 11:35> Rectal Exam: deferred <Shelby Perazaradha SKEIN BANDER - Last Filed: 03/28/21 11:35> Skin: General skin exam: normal color <Shelby Perazaradha SKEIN BANDER - Last Filed: 03/28/21 11:35> Neuro: General: patient oriented x3 <Shelby GranadosNayeli Josue, SKEIN BANDER Last Filed: 03/28/21 11:35> Objective Data Vital Signs Vital Signs: Vital Signs - 24 hr 03/27/21 12:00 03/27/21 13:46 03/27/21 14:50 Temperature 36.9 C Pulse Rate 77 76 Respiratory Rate 16 Blood Pressure 100/53 L Pulse Oximetry 100 97 03/27/21 16:00 03/27/21 20:00 03/27/21 20:35 Temperature 36.1 C L Pulse Rate 87 75 Respiratory Rate 18 Blood Pressure 114/64 Pulse Oximetry 97 97 03/28/21 00:00 03/28/21 04:00 03/28/21 10:39 Temperature 36.4 C 36.2 C L 36.5 C Pulse Rate 77 68 70 Respiratory Rate 18 18 18 Blood Pressure 110/60 106/56 L 102/54 L Pulse Oximetry 98 98 95 <Shelby Salas APRN - Last Filed: 03/28/21 11:35> Intake/Output Intake/Output: Intake & Output 03/25/21 03/26/21 03/27/21 03/28/21 23:59 23:59 23:59 23:59 Intake Total 3189 2560 5012 1830 Output Total 3200 350 024 3867 Balance -11 2160 4211 330 <Shelby Salas APRN - Last Filed: 03/28/21 11:35> Meds/Results Medications: Active Medications Generic Name Dose Route Start Last Admin Trade Name Freq PRN Reason Stop Dose Admin Albutero
--- NOTE | 2021-03-28 11:33 | PM.IMPN ---
Progress Note: A&P Assessment and Plan (1) GI bleed: Code(s): K92.2 - Gastrointestinal hemorrhage, unspecified Status: Acute Assessment and Plan: Likely upper GI versus small bowel blood loss. On her last EGD on 03/25/2021 a single Dieulafoy lesion of D2 segment of the duodenum was identified. Three units packed red cells transfused , initially. She is NPO Continue hemoglobin monitoring, there was a drop from 8.4 yesterday to 7.7. Still no signs of active bleeding, will check again in the afternoon, around 3:00 p.m. IV Protonix b.i.d. GI on consult, appreciate recommendations (2) Anemia: Code(s): D64.9 - Anemia, unspecified Status: Acute Assessment and Plan: As above-mentioned secondary to GI blood loss but may have baseline multifactorial anemia of iron deficiency +/- anemia of chronic disease Her ferritin level was low normal on last checks. She also had a low retic count. her iron level was low Pending peripheral blood smear Her recent B12 and folic acid level were normal continue oral iron supplementation continue IV iron hemoglobin dropped a little from 8.4-7.7 today, will trend in the afternoon and transfuse if necessary. GI on board in case further intervention necessary. (3) Hypotension: Code(s): I95.9 - Hypotension, unspecified Status: Acute Assessment and Plan: Secondary to blood loss and blood pressure meds Patient received 2 L L of saline bolus on presentation. She also has received packed red cells Her lactic acid level is cleared and she is asymptomatic Continue to hold blood pressure medication Doing well on midodrine Check cortisol level as patient has been on and off steroids for her COVID and COPD fluid resuscitation as necessary (4) COVID: Code(s): U07.1 - COVID-19 Status: Acute Assessment and Plan: She was tested positive for COVID-19 on last admission on 03/13 She she finished a course of dexamethasone Her chest x-ray today does not show any acute infiltrates She is saturating 100% on room air during my exam (5) COPD (chronic obstructive pulmonary disease): Code(s): J44.9 - Chronic obstructive pulmonary disease, unspecified Status: Acute Assessment and Plan: P.r.n. bronchodilators (6) Type 2 diabetes mellitus: Code(s): E11.9 - Type 2 diabetes mellitus without complications Status: Acute Assessment and Plan: oral hypoglycemics at home. Insulin sliding scale here. Continue diabetic diet. Time Spent With Patient Time with patient: less than 15 minutes Subjective Date/time seen: Resting comfortably in bed. Tolerating diet. Denies abdominal pain, or signs of overt bleeding, including blood in stool, coughing upper vomiting blood. Or blood in urine. Does not feel lethargic. In good spirits. Review of Systems Review of Systems: All systems reviewed & are unremarkable except as noted in HPI and below Exam Narrative: Comfortable, genial, able to engage interactively in physical exam. Const: General: no acute distress Neck: Neck: no JVD Resp: Effort & Inspection: normal respiratory effort Auscultation: wheezes Cardio: Rate: regular rate Rhythm: regular rhythm GI: GI Palp: Yes Soft to palpation and No Tenderness to palpation present (GI) Objective Data Vital Signs Vital Signs: Vital Signs - 24 hr 03/27/21 12:00 03/27/21 13:46 03/27/21 14:50 Temperature 98.5 F Pulse Rate 77 76 Respiratory Rate 16 Blood Pressure 100/53 L Pulse Oximetry 100 97 03/27/21 16:00 03/27/21 20:00 03/27/21 20:35 Temperature 97.0 F L Pulse Rate 87 75 Respiratory Rate 18 Blood Pressure 114/64 Pulse Oximetry 97 97 03/28/21 00:00 03/28/21 04:00 03/28/21 10:39 Temperature 97.6 F 97.1 F L 97.7 F Pulse Rate 77 68 70 Respiratory Rate 18 18 18 Blood Pressure 110/60 106/56 L 102/54 L Pulse Oximetry 98 98 95 Intake/Output Intake/Output: Intake & Out
[2021-03-28 13:06] LABS: Glucose Point of Care 106 mg/dl (65-105)
[2021-03-28 15:19] LABS: Hematocrit 26.2 % (37.0-47.0); Hemoglobin 8.2 g/dL (12.0-15.0)
[2021-03-28 15:50] LABS: Mean Corpuscular HGB Conc 31.2 g/dl (32-36); Mean Corpuscular Hemoglobin 29.3 pg (26-34); Mean Corpuscular Volume 94.2 fl (80-100); Mean Platelet Volume 10.1 fl (7.4-10.4); Platelet Count Result 133 k/mm3 (150-375); Red Blood Count 2.76 M/mm3 (4.2-5.4); Red Cell Distribution Width 18.1 % (11.5-14.5); White Blood Count 8.1 K/mm3 (4.5-10.0)
[2021-03-28 18:16] LABS: Glucose Point of Care 143 mg/dl (65-105)
[2021-03-28] MEDS: ATORVASTATIN 40 MG TABLET 80 MG PO (20:30)
[2021-03-28 21:08] LABS: Glucose Point of Care 159 mg/dl (65-105)
[2021-03-29] VITALS (13 sets, daily range): BP systolic 105–128; BP diastolic 52–70; PULSE 59–79; RESP 8–20; TEMP 36.4–37.3; O2SAT 90–98
[2021-03-29] MEDS: SODIUM BICARBONATE 8.4% 100 MEQ in DEXTROSE 5% 1,000 ML 1,000 ML 75 MEQ IV CONT ×2 (02:20→19:34)
[2021-03-29 06:02] LABS: Basophils Absolute Auto 0.1 K/mm3 (0.0-0.1); Basophils Percent Auto 0.7 % (0.2-1.2); Eosinophils Absolute Auto 0.4 K/mm3 (0-0.3); Eosinophils Percent Auto 4.7 % (0-4.4); Hematocrit 26.9 % (37.0-47.0); Hemoglobin 8.1 g/dL (12.0-15.0); Immature Granulocyte Absolute 0.03 K/mm3 (0.00-0.031); Immature Granulocyte Percent A 0.3 % (0-0.5); Lymphocytes Absolute Auto 0.65 K/mm3 (0.9-3.2); Lymphocytes Percent Auto 7.6 % (18.3-44.2); Mean Corpuscular HGB Conc 30.1 g/dl (32-36); Mean Corpuscular Hemoglobin 29.1 pg (26-34); Mean Corpuscular Volume 96.8 fl (80-100); Mean Platelet Volume 10.2 fl (7.4-10.4); Monocytes Absolute Auto 0.6 K/mm3 (0.1-0.6); Monocytes Percent Auto 6.5 % (2.6-8.5); Neutrophils Absolute Auto 6.9 K/mm3 (1.3-6.7); Neutrophils Percent Auto 80.2 % (45.5-73.1); Platelet Count Result 137 k/mm3 (150-375); Red Blood Count 2.78 M/mm3 (4.2-5.4); Red Cell Distribution Width 17.8 % (11.5-14.5); White Blood Count 8.6 K/mm3 (4.5-10.0)
[2021-03-29 06:12] LABS: Alanine Aminotransferase 8 U/L (4-35); Albumin Level 3.1 g/dL (3.5-5.1); Alkaline Phosphatase 66 U/L (38-126); Anion Gap 3 mmol/L (8-16); Aspartate Amino Transferase 16 U/L (14-36); Bilirubin,Total 0.4 mg/dL (0.2-1.3); Blood Urea Nitrogen 8 mg/dL (7-17); Calcium 8.1 mg/dL (8.4-10.2); Carbon Dioxide 33 mmol/L (22-30); Chloride 105 mmol/L (98-107); Estimated CRCL calculation 51 ml/min; Estimated Glomerular Filt Rate > 60; Glucose 126 mg/dL (65-110); Magnesium 2.3 mg/dL (1.6-2.3); Phosphorus 3.9 mg/dL (2.5-4.5); Potassium 3.4 mmol/L (3.4-5.0); Sodium 141 mmol/L (137-145)
[2021-03-29] MEDS: PANTOPRAZOLE 40 MG TABLET PO ×2 (09:25→20:54)
[2021-03-29] MEDS: MIDODRINE HCL 2.5 MG TABLET 5 MG PO ×3 (09:25→16:04)
[2021-03-29] MEDS: IRON SUCROSE COMPLEX 100 MG in SODIUM CHLORIDE 0.9% IV 50 ML IVPB (09:25)
[2021-03-29] MEDS: FERROUS SULFATE DRIED 142 MG TABCR PO (09:25)
[2021-03-29 09:50] LABS: Glucose Point of Care 104 mg/dl (65-105)
[2021-03-29 12:35] LABS: Glucose Point of Care 97 mg/dl (65-105)
[2021-03-29 16:11] LABS: Glucose Point of Care 93 mg/dl (65-105)
--- NOTE | 2021-03-29 16:30 | PM.IMPN ---
Progress Note: A&P Assessment and Plan (1) GI bleed: Code(s): K92.2 - Gastrointestinal hemorrhage, unspecified Status: Acute Assessment and Plan: Likely upper GI versus small bowel blood loss. On her last EGD on 03/25/2021 a single Dieulafoy lesion of D2 segment of the duodenum was identified. Three units packed red cells transfused , initially. She is NPO Continue hemoglobin monitoring, Hemoglobin remains unstable, plan for EGD today. IV Protonix b.i.d. GI on consult, appreciate recommendations (2) Anemia: Code(s): D64.9 - Anemia, unspecified Status: Acute Assessment and Plan: As above-mentioned secondary to GI blood loss but may have baseline multifactorial anemia of iron deficiency +/- anemia of chronic disease Her ferritin level was low normal on last checks. She also had a low retic count. her iron level was low Pending peripheral blood smear Her recent B12 and folic acid level were normal continue oral iron supplementation continue IV iron Hemoglobin remains unstable, plan for EGD today. (3) Hypotension: Code(s): I95.9 - Hypotension, unspecified Status: Acute Assessment and Plan: Secondary to blood loss and blood pressure meds Patient received 2 L L of saline bolus on presentation. She also has received packed red cells Her lactic acid level is cleared and she is asymptomatic Continue to hold blood pressure medication Doing well on midodrine Check cortisol level as patient has been on and off steroids for her COVID and COPD fluid resuscitation as necessary (4) COVID: Code(s): U07.1 - COVID-19 Status: Acute Assessment and Plan: She was tested positive for COVID-19 on last admission on 03/13 She she finished a course of dexamethasone Her chest x-ray today does not show any acute infiltrates She is saturating 100% on room air during my exam (5) COPD (chronic obstructive pulmonary disease): Code(s): J44.9 - Chronic obstructive pulmonary disease, unspecified Status: Acute Assessment and Plan: P.r.n. bronchodilators (6) Type 2 diabetes mellitus: Code(s): E11.9 - Type 2 diabetes mellitus without complications Status: Acute Assessment and Plan: oral hypoglycemics at home. Insulin sliding scale here. Continue diabetic diet. Additional Plan If no acute rebleed found on EGD today, and hemoglobin stable tomorrow morning, and patient continuing to feel well, plan for discharge tomorrow morning. Subjective Date/time seen: 03/29/21 16:30 resting comfortably in bed. No breathing difficulty. Energy level feeling better. No belly pain. Tolerating diet. Sleeping through the night. Having bowel movements. Review of Systems Review of Systems: All systems reviewed & are unremarkable except as noted in HPI and below Exam Neck: Neck: no JVD Resp: Effort & Inspection: normal respiratory effort Auscultation: clear to auscultation bilaterally Cardio: Rate: regular rate Rhythm: regular rhythm GI: GI Palp: Yes Soft to palpation and No Tenderness to palpation present (GI) Objective Data Vital Signs Vital Signs: Vital Signs - 24 hr 03/28/21 18:18 03/28/21 20:00 03/28/21 20:30 Temperature 97.2 F L Pulse Rate 88 68 Respiratory Rate 18 Blood Pressure 116/55 L Pulse Oximetry 98 97 03/28/21 22:00 03/29/21 00:00 03/29/21 01:32 Temperature 97.2 F L 97.9 F Pulse Rate 68 73 75 Respiratory Rate 18 18 Blood Pressure 108/61 105/66 Pulse Oximetry 99 98 03/29/21 04:50 03/29/21 06:00 03/29/21 08:00 Temperature 98.1 F Pulse Rate 65 65 59 L Respiratory Rate 8 L Blood Pressure 108/59 L Pulse Oximetry 96 03/29/21 09:34 03/29/21 10:00 03/29/21 12:00 Temperature 99.1 F Pulse Rate 79 68 Respiratory Rate 18 Blood Pressure 112/58 L Pulse Oximetry 94 95 03/29/21 14:00 03/29/21 16:00 Temperature 97.6 F Pulse Rate 60 67 Respiratory Rate 18 Blood Pre
--- NOTE | 2021-03-29 16:57 | WPDGIPROGNO ---
Progress Note: A&P Assessment and Plan (1) Dieulafoy lesion of duodenum: Code(s): K31.82 - Dieulafoy lesion (hemorrhagic) of stomach and duodenum Status: Acute Assessment and Plan: treated endoscopically last , last set of hb low but stable. No evidence of more GIB and had brown stool no need to repeat another egd for now ok to resume diet and continue with ppi daily (2) Acute on chronic anemia: Code(s): D64.9 - Anemia, unspecified Status: Acute (3) GI bleed: Code(s): K92.2 - Gastrointestinal hemorrhage, unspecified Status: Acute (4) Chronic obstructive pulmonary disease: Code(s): J44.9 - Chronic obstructive pulmonary disease, unspecified Status: Acute Subjective Date/time seen: 03/29/21 16:57 Interval history: she is feeling better, says that last BM was brown. Review of Systems Review of Systems: All systems reviewed & are unremarkable except as noted in HPI and below Exam Const: General: cooperative, healthy appearing, comfortable, no acute distress and awake Orientation/consciousness: patient oriented x3 HENMT: General nose exam: Normal nares present Eyes: General: appearance normal, both eyes and all related structures Neck: Neck: supple Resp: Effort & Inspection: normal respiratory effort Auscultation: diminished lung sounds Cardio: Rate: regular rate Rhythm: regular rhythm Heart sounds: S1 normal heart sound present, S2 normal heart sound present and Murmur heart sound present GI: Inspection: normal to inspection GI Palp: No abdominal tenderness, Yes Soft to palpation and No Hepatosplenomegaly present Auscultation: normal bowel sounds Rectal Exam: deferred Skin: General skin exam: normal color Neuro: General: patient oriented x3 Speech: normal speech Motor exam (neuro): Normal motor muscle tone present throughout Extrem: General: normal to inspection Psych: Mental Status: mental status grossly normal Objective Data Vital Signs Vital Signs: Vital Signs - 24 hr 03/28/21 18:18 03/28/21 20:00 03/28/21 20:30 Temperature 97.2 F L Pulse Rate 88 68 Respiratory Rate 18 Blood Pressure 116/55 L Pulse Oximetry 98 97 03/28/21 22:00 03/29/21 00:00 03/29/21 01:32 Temperature 97.2 F L 97.9 F Pulse Rate 68 73 75 Respiratory Rate 18 18 Blood Pressure 108/61 105/66 Pulse Oximetry 99 98 03/29/21 04:50 03/29/21 06:00 03/29/21 08:00 Temperature 98.1 F Pulse Rate 65 65 59 L Respiratory Rate 8 L Blood Pressure 108/59 L Pulse Oximetry 96 03/29/21 09:34 03/29/21 10:00 03/29/21 12:00 Temperature 99.1 F Pulse Rate 79 68 Respiratory Rate 18 Blood Pressure 112/58 L Pulse Oximetry 94 95 03/29/21 14:00 03/29/21 16:00 Temperature 97.6 F Pulse Rate 60 67 Respiratory Rate 18 Blood Pressure 120/55 L Pulse Oximetry 90 Intake/Output Intake/Output: Intake & Output 03/26/21 03/27/21 03/28/21 03/29/21 23:59 23:59 23:59 23:59 Intake Total 2560 5512 6945 0 Output Total 384 314 9741 800 Balance 2160 4711 3345 -800 Meds/Results Medications: Active Medications Generic Name Dose Route Start Last Admin Trade Name Freq PRN Reason Stop Dose Admin Albuterol 2.5 mg 03/24/21 14:19 Albuterol Sulfate Neb 2.5 Mg/0.5 Ml Inh INHALATION Q6HRT PRN Shortness Of Breath Atorvastatin Calcium 80 mg 03/24/21 21:00 03/28/21 20:30 Atorvastatin 40 Mg Tablet PO 80 mg HS ALIE Administration Dextrose 12.5 gm 03/24/21 20:42 Dextrose 50% 25 Gm/50 Ml Syringe IV PUSH PRN PRN Hypoglycemia Protocol Ferrous Sulfate 142 mg 03/25/21 09:00 03/29/21 09:25 Ferrous Sulfate Dried 142 Mg Tabcr PO 142 mg DAILY ALIE Administration Glucagon 1 mg 03/24/21 20:42 Glucagon For Inj 1 Mg Vial IM PRN PRN Hypoglycemia Protocol Glucose 15 gm 03/24/21 20:42 Glucose Oral Gel 15 Gm Of Glucse In 37.5 Gm Tube PO PRN PRN Hypoglycemia
[2021-03-29 17:04] LABS: Hematocrit 26.1 % (37.0-47.0); Hemoglobin 7.8 g/dL (12.0-15.0); Mean Corpuscular HGB Conc 29.9 g/dl (32-36); Mean Corpuscular Hemoglobin 28.7 pg (26-34); Mean Platelet Volume 9.8 fl (7.4-10.4); Platelet Count Result 138 k/mm3 (150-375); Red Blood Count 2.72 M/mm3 (4.2-5.4); Red Cell Distribution Width 17.6 % (11.5-14.5); White Blood Count 7.1 K/mm3 (4.5-10.0)
[2021-03-29] MEDS: ATORVASTATIN 40 MG TABLET 80 MG PO (20:54)
[2021-03-29 21:02] LABS: Glucose Point of Care 196 mg/dl (65-105)
[2021-03-30] VITALS (7 sets, daily range): BP systolic 86–111; BP diastolic 49–60; PULSE 63–85; RESP 18–20; TEMP 36.4–37.1; O2SAT 98–100
[2021-03-30 05:50] LABS: Basophils Absolute Auto 0.1 K/mm3 (0.0-0.1); Basophils Percent Auto 0.9 % (0.2-1.2); Eosinophils Absolute Auto 0.5 K/mm3 (0-0.3); Eosinophils Percent Auto 8.1 % (0-4.4); Hematocrit 26.2 % (37.0-47.0); Hemoglobin 7.9 g/dL (12.0-15.0); Immature Granulocyte Absolute 0.02 K/mm3 (0.00-0.031); Immature Granulocyte Percent A 0.3 % (0-0.5); Lymphocytes Absolute Auto 0.64 K/mm3 (0.9-3.2); Lymphocytes Percent Auto 11.1 % (18.3-44.2); Mean Corpuscular HGB Conc 30.2 g/dl (32-36); Mean Corpuscular Volume 96.3 fl (80-100); Mean Platelet Volume 9.7 fl (7.4-10.4); Monocytes Absolute Auto 0.5 K/mm3 (0.1-0.6); Monocytes Percent Auto 8.8 % (2.6-8.5); Neutrophils Absolute Auto 4.1 K/mm3 (1.3-6.7); Neutrophils Percent Auto 70.8 % (45.5-73.1); Platelet Count Result 145 k/mm3 (150-375); Red Blood Count 2.72 M/mm3 (4.2-5.4); Red Cell Distribution Width 17.5 % (11.5-14.5); White Blood Count 5.8 K/mm3 (4.5-10.0)
[2021-03-30 06:13] LABS: Alanine Aminotransferase 10 U/L (4-35); Albumin Level 2.8 g/dL (3.5-5.1); Alkaline Phosphatase 70 U/L (38-126); Anion Gap 2 mmol/L (8-16); Aspartate Amino Transferase 14 U/L (14-36); Bilirubin,Total 0.6 mg/dL (0.2-1.3); Blood Urea Nitrogen 6 mg/dL (7-17); Carbon Dioxide 33 mmol/L (22-30); Chloride 104 mmol/L (98-107); Estimated CRCL calculation 51 ml/min; Estimated Glomerular Filt Rate > 60; Glucose 102 mg/dL (65-110); Magnesium 2.2 mg/dL (1.6-2.3); Potassium 3.3 mmol/L (3.4-5.0); Sodium 139 mmol/L (137-145)
[2021-03-30] MEDS: LEVOTHYROXINE SODIUM 25 MCG TABLET PO (06:28)
[2021-03-30 07:57] LABS: Glucose Point of Care 111 mg/dl (65-105)
[2021-03-30] MEDS: hydrOXYzine pamoate 25 MG CAPSULE PO (08:52)
[2021-03-30] MEDS: PANTOPRAZOLE 40 MG TABLET PO (08:52)
[2021-03-30] MEDS: IRON SUCROSE COMPLEX 100 MG in SODIUM CHLORIDE 0.9% IV 50 ML 220 MG IVPB (08:53)
[2021-03-30] MEDS: MIDODRINE HCL 2.5 MG TABLET 5 MG PO ×2 (08:53→12:56)
[2021-03-30] MEDS: FERROUS SULFATE DRIED 142 MG TABCR PO (08:53)
[2021-03-30] MEDS: SODIUM BICARBONATE 8.4% 100 MEQ in DEXTROSE 5% 1,000 ML 1,000 ML 75 MEQ IV CONT (08:55)
--- NOTE | 2021-03-30 10:43 | PCOTNOTE ---
PT. declined Occupational Therapy this date stated I'm going home today, I don't want to take a bath or do anything.
--- NOTE | 2021-03-30 12:04 | PM.DS ---
DS: Admitting Diagnosis Admitting Diagnosis Chief Complaint: Weakness. DS: Discharge Diagnosis Discharge Diagnosis (1) GI bleed: Code(s): K92.2 - Gastrointestinal hemorrhage, unspecified Status: Acute Assessment and Plan: Likely upper GI versus small bowel blood loss. On her last EGD on 03/25/2021 a single Dieulafoy lesion of D2 segment of the duodenum was identified. Three units packed red cells transfused , initially. She is NPO Continue hemoglobin monitoring, Hemoglobin remains unstable, plan for EGD today. IV Protonix b.i.d. GI on consult, appreciate recommendations (2) Anemia: Code(s): D64.9 - Anemia, unspecified Status: Acute Assessment and Plan: As above-mentioned secondary to GI blood loss but may have baseline multifactorial anemia of iron deficiency +/- anemia of chronic disease Her ferritin level was low normal on last checks. She also had a low retic count. her iron level was low Pending peripheral blood smear Her recent B12 and folic acid level were normal continue oral iron supplementation continue IV iron Hemoglobin remains unstable, plan for EGD today. (3) Hypotension: Code(s): I95.9 - Hypotension, unspecified Status: Acute Assessment and Plan: Secondary to blood loss and blood pressure meds Patient received 2 L L of saline bolus on presentation. She also has received packed red cells Her lactic acid level is cleared and she is asymptomatic Continue to hold blood pressure medication Doing well on midodrine Check cortisol level as patient has been on and off steroids for her COVID and COPD fluid resuscitation as necessary (4) COVID: Code(s): U07.1 - COVID-19 Status: Acute Assessment and Plan: She was tested positive for COVID-19 on last admission on 03/13 She she finished a course of dexamethasone Her chest x-ray today does not show any acute infiltrates She is saturating 100% on room air during my exam (5) COPD (chronic obstructive pulmonary disease): Code(s): J44.9 - Chronic obstructive pulmonary disease, unspecified Status: Acute Assessment and Plan: P.r.n. bronchodilators (6) Type 2 diabetes mellitus: Code(s): E11.9 - Type 2 diabetes mellitus without complications Status: Acute Assessment and Plan: oral hypoglycemics at home. Insulin sliding scale here. Continue diabetic diet. DS: Summary Hospital Course Reason for hospitalization: Chief Complaint: Weakness. Narrative: This is a 65-year-old female with hypertension, dyslipidemia, hypothyroidism, diabetes, COPD, GERD with history of gastric ulcers, and anemia with history of blood transfusions who presented to the emergency department earlier today via EMS from home for evaluation of weakness. She is known to the hospitalist service with a recent admission on 03/14/2021 with acute respiratory failure related to COVID pneumonia. She was also found to have acute on chronic anemia and was transfused 2 units of packed red blood cells. Due to her COVID 19 infection it was decided to do her EGD as an outpatient with plans for capsule endoscopy as well. She was discharged home on 03/18/2021 with a prescription for ferrous sulfate as well as prednisone for 4 days. It should be noted that the patient had evidence of bed bugs when she was admitted to the hospital during her last stay and she was given resources including numbers for [facility] to help coordinate treatment of her house for that. In any regard, the patient tells me that she has been extremely weak since returning home and has not been able to take her medications as she is reportedly unable to ambulate without much difficulties due to weakness and lightheadedness. She was evaluated by PT during her previous stay who did not feel skilled therapy services were indicated as she appeared to be functioning at her baseline. In any event, she was much more weak this morning and lucas
[2021-03-30 12:10] LABS: Glucose Point of Care 103 mg/dl (65-105)
== END 2021-03-30 15:45 | disposition home or self-care (01) | DRG 378 ==
LOC: ANHED 11:11 → ANHICU 16:22 → ANH2MED 03-30 12:04 → ANHICU 04-02 11:31
PROVIDERS: Internal Medicine; Internal Medicine Gastroenterology; Admitting Provider Internal Medicine; Emergency Provider Emergency Medicine; PCP Nurse Practitioner Family; Visit Provider Internal Medicine
PROC: 0DJ08ZZ Inspection of Upper Intestinal Tract, Via Natural or Artificial Opening Endoscopic (ICD-10-PCS; CPT 43235; principal; 2021-03-25 12:00)
DX: K31.82 Dieulafoy lesion (hemorrhagic) of stomach and duodenum (principal); E87.2 Acidosis; D62 Acute posthemorrhagic anemia; K44.9 Diaphragmatic hernia without obstruction or gangrene; J44.9 Chronic obstructive pulmonary disease, unspecified; M19.90 Unspecified osteoarthritis, unspecified site; E78.5 Hyperlipidemia, unspecified; G47.33 Obstructive sleep apnea (adult) (pediatric); E11.42 Type 2 diabetes mellitus with diabetic polyneuropathy; F32.9 Major depressive disorder, single episode, unspecified; I95.89 Other hypotension; D69.59 Other secondary thrombocytopenia; I10 Essential (primary) hypertension; Z86.16 Personal history of COVID-19; Z86.73 Personal history of transient ischemic attack (TIA), and cerebral infarction without residual deficits; Z87.891 Personal history of nicotine dependence; Z85.21 Personal history of malignant neoplasm of larynx
CPT/HCPCS: 36415; 36430; 51701; 71045; 80053; 80061; 81001; 82728; 82948; 83605; 83735; 84100; 84439; 84443; 85014; 85018; 85025; 85027; 85046; 85060; 85610; 85730; 86850; 86900; 86901; 86920; 87040; 93005; 96361; 96374; 97110; 97116; 97161; 97166; 97530; 97535; 99285; A9270; C9113; J1756; J2704; J7030; J7040; J7050; J7070; J7120; P9016

== ENCOUNTER 2021-04-15 11:02 | Outpatient (CLI) | payer MEDICARE, MEDICAID, SELFPAY ==
[2021-04-15 11:43] LABS: Hematocrit 33.7 % (37.0-47.0); Hemoglobin 10.3 g/dL (12.0-15.0); Mean Corpuscular HGB Conc 30.6 g/dl (32-36); Mean Corpuscular Hemoglobin 28.2 pg (26-34); Mean Corpuscular Volume 92.3 fl (80-100); Platelet Count Result 248 k/mm3 (150-375); Red Blood Count 3.65 M/mm3 (4.2-5.4); Red Cell Distribution Width 14.8 % (11.5-14.5); White Blood Count 5.7 K/mm3 (4.5-10.0)
== END 2021-04-15 11:03 | disposition home or self-care (01) ==
LOC: ANHLAB 11:04
PROVIDERS: PCP Nurse Practitioner Family; Visit Provider Internal Medicine Gastroenterology
DX: D64.9 Anemia, unspecified (principal)
CPT/HCPCS: 36415; 85027

== ENCOUNTER 2023-10-10 12:33 | Outpatient (RCR) | payer MEDICARE, MEDICAID, SELFPAY ==
--- NOTE | 2023-10-10 17:12 | PTOPEVAL1 ---
Assessment and note entered by Olivier Quinonez, PT Evaluation Information Assessment Status Evaluation Diagnosis Cervicalgia Onset September 2022 Subjective Information Reports that she has wendy having pain, mostly with sleeping or standing for a log time. This has been going on severely for a little over a year. She is R handed and most of her pain is on her right side. She enjoys writing and coloring and it hurts to do both of those things. She has a low tolerance for pain as stated. Will occasionally get pain in her right hand as well. Reported Pain Level Pain Score 1: Self Report Assessment PT Clinical Summary Patient presents with neck pain and significant spinal rigidity in cervical spine. Postural weakness noted with poor postural awareness. Patient will benefit from skilled therapy to address these deficits. Plan of Care Interventions Electrical Stimulation,Hot Pack/Cold Pack,Manual Therapy,Neuro Re-education,Therapeutic Activities, Therapeutic Exercise PT Services Indicated Yes Treatment Frequency and 2x/week for 8 visits Duration These treatments will address the objective and functional deficits as defined above. The patient will be advanced safely and appropriately in order for the patient to progress towards his/her prior level of function. Additional exercises will be introduced and as well as a comprehensive home exercise program upon discharge, if needed, ?to ensure carryover of functional gains achieved in the clinic. This treatment plan has been reviewed and agreement upon by the patient.
--- NOTE | 2023-10-10 17:12 | OPREHPOC ---
Outpatient Therapy Plan of Care This is a Multidisciplinary Plan of Care that may contain components documented by all disciplines (PT, OT, and ST.) PT Problem 1 PT Problem #1 Knowledge Deficit PT Goal 1 Goal independence with HEP Target Visit 4 PT Problem 2 PT Problem #2 Pain PT Goal 1 Goal Report pain no greater than 2/10 when waking up in AM reflecting improved resting mobility and postural stability Target Visit 8 PT Problem 3 PT Problem #3 Impaired Range of Motion PT Goal 1 Goal Improve ally cervical rotation to 60 degrees to improve functional cervical mobility Target Visit 8 PT Goal 2 Goal Improve cervical extension to 35 degrees to improve cervical facet extension Target Visit 8 PT Problem 4 PT Problem #4 Impaired Safety Awareness PT Goal 1 Goal Require no cueing for periscapular positioning during exercise to promote conscious independence Target Visit 8
--- NOTE | 2023-10-18 13:27 | PCPTNOTE ---
Patient called & cancelled scheduled appointment this date due to not having a ride to therapy.
--- NOTE | 2023-10-26 15:28 | PCPTNOTE ---
Patient no showed to appointment this date. Attempted to call patient however phone was not in service.
--- NOTE | 2023-10-31 14:38 | PCPTNOTE ---
Patient no showed for appointment this date. Attempted to call and leave voicemail however patient's phone is not in service. Patient is to be discharged this date due to attendance compliance policy.
--- NOTE | 2023-11-03 09:32 | PTOPDC ---
Assessment and note entered by Olivier Quinonez, PT Evaluation Information Assessment Status Discharge - Pt Not Presen Diagnosis Cervicalgia Onset September 2022 Subjective Information Reports that she has wendy having pain, mostly with sleeping or standing for a log time. This has been going on severely for a little over a year. She is R handed and most of her pain is on her right side. She enjoys writing and coloring and it hurts to do both of those things. She has a low tolerance for pain as stated. Will occasionally get pain in her right hand as well. Assessment PT Clinical Summary Patient has failed to return to therapy following initial evaluation and will be discharged at this time secondary to attendance policy and non compliance. Plan of Care PT Services Indicated D/C to HEP
== END 2023-11-03 10:12 | disposition home or self-care (01) ==
LOC: ANHGOSHPT 12:33
PROVIDERS: PCP Nurse Practitioner Family; Visit Provider Emergency Medicine
DX: M54.2 Cervicalgia (principal)
CPT/HCPCS: 97014; 97110; 97161; 99199; G0283